=== PATIENT | female | born 1940 | race Caucasian/White ===

== ENCOUNTER 2017-11-23 09:07 | Emergency (ER) | payer MEDICARE, OTHER ==
[2017-11-23 09:13] VITALS: RESP 16
--- NOTE | 2017-11-23 09:38 | ED ---
General Adult HPI - General Chief complaint: Fall Stated complaint: Fell in driveway/facial injury Time Seen by Provider: 11/23/17 09:25 Source: patient, RN notes reviewed Mode of arrival: ambulatory Limitations: no limitations - History of Present Illness Initial comments: Patient 77-year-old female presented to the emergency room today with a chief complaint of a fall occurred approximately one hour ago. She does not that she was in the driveway and tripped over a small lip in the concrete causing her fall for landing on left knee causing mild abrasion. She states also hit her face mostly on the right side. Does admit some abrasions and swelling around the right eye and nose. States she did notice some blood in her mouth but she states this has stopped. She states her knee feels okay. She has noticed some pain to the left pinky finger. Patient states he was no loss of consciousness. She admits to pain locally around the right side of the face but denies any specific headache. Denies any neck, back pain, or other extremity pain. Patient denies any nausea, vomiting, chest pain, abdominal pain, numbness or tingling. - Related Data Home Medications Medication Instructions Recorded Confirmed Aspirin [Adult Low Dose Aspirin EC] 81 mg PO DAILY 12/02/15 11/23/17 Atenolol [Tenormin] 25 mg PO DAILY 12/02/15 11/23/17 Atorvastatin [Lipitor] 40 mg PO HS 12/02/15 11/23/17 Sertraline HCl [Zoloft] 75 mg PO DAILY 12/02/15 11/23/17 Vit A/Vit C/Vit E/Zinc/Copper 1 cap PO BID 12/02/15 11/23/17 [ICAPS SOFTGEL] Calcium Carbonate [Calcium] 600 mg PO DAILY 11/23/17 11/23/17 Ergocalciferol (Vitamin D2) 50,000 unit PO MILLS 11/23/17 11/23/17 [Vitamin D2] Lisinopril [Zestril] 5 mg PO DAILY 11/23/17 11/23/17 Allergies Allergy/AdvReac Type Severity Reaction Status Date / Time No Known Allergies Allergy Verified 11/23/17 10:09 Review of Systems ROS Statement: Those systems with pertinent positive or pertinent negative responses have been documented in the HPI. ROS Other: All systems not noted in ROS Statement are negative. Past Medical History Past Medical History: Coronary Artery Disease (CAD), Hyperlipidemia, Hypertension, Osteoarthritis (OA) Additional Past Medical History / Comment(s): migraines, GOUT, UTI -STATED WAS STARTED FEW DAYS AGO ON ABX. History of Any Multi-Drug Resistant Organisms: None Reported Past Surgical History: Appendectomy, Back Surgery, Bladder Surgery, Cholecystectomy, Coronary Bypass/CABG, Hysterectomy, Orthopedic Surgery, Tonsillectomy Additional Past Surgical History / Comment(s): CABG 2007, rt knee surgery, surgery ingris thumbs, ingris cataracts, 01-06-16 TOTAL RT KNEE REPLACMENT Past Anesthesia/Blood Transfusion Reactions: Family History of Problems w/ Anesthesia, Motion Sickness, Postoperative Nausea & Vomiting (PONV) Additional Past Anesthesia/Blood Transfusion Reaction / Comment(s): HAS INNER DISTURBANCE CAUSES HER DIZZINESS AT TIMES. Past Psychological History: No Psychological Hx Reported Smoking Status: Never smoker Past Alcohol Use History: None Reported Past Drug Use History: None Reported - Past Family History Mother Family Medical History: No Reported History Father History Unknown: Yes General Exam - General Exam Comments Initial Comments: General: The patient is awake and alert, in no distress, and does not appear acutely ill. Eye: Pupils are equal, round and reactive to light, extra-ocular movements are intact. No nystagmus. There is normal conjunctiva bilaterally. No signs of icterus. Ears, nose, mouth and throat: There are moist mucous membranes and no oral lesions. Patient does have some bruising and some swelling above the right eye and over the bridge of the right nose. Tender in these areas. No obvious laceration seen in the mouth. Patient does have dentures in place. No active bleeding. Abrasion to the upper lip, right side. Neck: The neck is supple, there is no tenderness or JVD. No tenderness over cervical spine. Cardiovascular: There is a regular rate and rhythm. No murmur, rub or gallop is appreciated. Respiratory: Lungs are clear to auscultation, respirations are non-labored, breath sounds are equal. No wheezes, stridor, rales, or rhonchi. Musculoskeletal: Patient shows good range of motion of extremities. Does have some tenderness over the proximal phalanx of the fifth digit of the left hand. Mild bruising and swelling locally to the area. Cap refill less than 2 seconds. Sensation intact. Radial pulses plus. Neurological: A&O x 3. CN II-XII intact, There are no obvious motor or sensory deficits. Coordination appears grossly intact. Speech is normal. Skin: Skin is warm and dry and no rashes or lesions are noted. Psychiatric: Cooperative, appropriate mood & affect, normal judgment. Limitations: no limitations Course Vital Signs 11/23/17 09:09 Temperature 98 F Pulse Rate 62 Respiratory 16 Rate Blood Pressure 170/87 O2 Sat by Pulse 98 Oximetry Medical Decision Making - Medical Decision Making Patient reexamined at this time shows no signs of distress. Her CT of the head and neck the patient bones reviewed and does show a non-displaced nasal bone fracture. No other acute abnormalities. X-ray of the left hand is negative for any fractures or dislocation. Results were discussed with the patient. Patient does admit to mild headache had some nausea earlier when she first arrived. She states that has improved. Signs symptoms of concussion discussed in detail. She is advised to limit her physical activity. She is advised follow-up the family doctor over the next 2 days. Advised to return here to the emergency room if any symptoms increase worsen. Patient discharged home where she stays with her will be able to help her. Disposition Clinical Impression: Nasal fracture, Concussion, Fall, Hand contusion, Facial abrasion Disposition: HOME SELF-CARE Condition: Good Instructions: Concussion (ED), Nasal Fracture (ED) Additional Instructions: Please follow-up with your nose and throat over the next 5-7 days after swelling has decreased if there is any obvious misalignment of the nose. Please limit physical activity for concussion-like symptoms until all symptoms have completely resolved and follow-up family doctor the next 2 days. Return here to emergency room if any symptoms increase or worsen appropriate concerns. Is patient prescribed a controlled substance at d/c from ED?: No Referrals: Miguelito Rodriguez MD [Primary Care Provider] - 1-2 days Time of Disposition: 11:04
--- NOTE | 2017-11-23 09:59 | XR ---
EXAMINATION TYPE: XR hand complete LT DATE OF EXAM: 11/23/2017 CLINICAL HISTORY: pain TECHNIQUE: Frontal, lateral and oblique images of the left hand are obtained. COMPARISON: None. FINDINGS: There is no acute fracture/dislocation evident. The joint spaces appear within normal limi ts. The osseous structures are osteopenic. The overlying soft tissue appears unremarkable. IMPRESSION: There is no acute fracture or dislocation. ICD 10 NO FRACTURE, INITIAL EVALUATION
--- NOTE | 2017-11-23 10:02 | CT ---
EXAMINATION TYPE: CT brain berhane camacho DATE OF EXAM: 11/23/2017 COMPARISON: HISTORY: Fall in driveway, multiple facial abrasions CT DLP: 1835.3 (brain, cervical, facial) mGycm Unenhanced CT of the brain was performed. The ventricles, basal cisterns and sulci overlying the cerebral convexities demonstrate enlargement. There is no evidence for intracranial hemorrhage or sulcal effacement. There is decreased attenuatio n about the periventricular white matter and deep white matter of both cerebral hemispheres, compatib le with chronic small vessel ischemia. No mass effects are seen. If symptoms persist consider MRI. Osseous calvarium is intact. IMPRESSION: 1. Age related atrophic and chronic small vessel ischemic change without acute intracranial process seen at this time. CT Cervical Spine: Unenhanced CT of the cervical spine was performed with bone and soft tissue window settings submitted . Coronal and sagittal reconstruction is obtained. There is normal alignment and prevertebral soft tissues. No evidence for acute cervical fracture . Scattered degenerative disc disease and spondylosis. Biapical scarring. IMPRESSION: 1. No evidence for acute fracture or subluxation of the cervical spine.
--- NOTE | 2017-11-23 10:05 | CT ---
EXAMINATION TYPE: CT facial bones wo con DATE OF EXAM: 11/23/2017 COMPARISON: None HISTORY: Fall in driveway, multiple facial abrasions CT DLP: 1835.3 (brain, cervical, facial) mGycm Unenhanced CT of the facial bones was performed in the axial and coronal planes. Bone and soft tissu e window settings are submitted. Paranasal/right periorbital soft tissue edema noted. Nondisplaced nondepressed nasal bone fracture. I do not see evidence for additional displaced facial bone fracture or depressed facial bone fracture. The globes are intact. Paranasal sinuses are well-aerated. IMPRESSION: 1. Nondisplaced nondepressed nasal bone fracture with associated soft tissue swelling.
[2017-11-23 11:21] VITALS: BP 169/84; PULSE 78; TEMP 97.8
== END 2017-11-23 11:20 | disposition home or self-care (01) ==
LOC: EC 09:07
DX: S06.0X0A Concussion without loss of consciousness, initial encounter (principal); S02.2XXA Fracture of nasal bones, initial encounter for closed fracture; S60.052A Contusion of left little finger without damage to nail, initial encounter; S00.11XA Contusion of right eyelid and periocular area, initial encounter; S80.212A Abrasion, left knee, initial encounter; I25.10 Atherosclerotic heart disease of native coronary artery without angina pectoris; E78.5 Hyperlipidemia, unspecified; I10 Essential (primary) hypertension; Z79.82 Long term (current) use of aspirin; Z95.1 Presence of aortocoronary bypass graft; W01.10XA Fall on same level from slipping, tripping and stumbling with subsequent striking against unspecified object, initial encounter; Y92.009 Unspecified place in unspecified non-institutional (private) residence as the place of occurrence of the external cause
CPT/HCPCS: 70450; 70486; 72125; 99284

== ENCOUNTER → 2018-09-11 | Outpatient (CLI) | payer MEDICARE, OTHER ==
--- NOTE | 2018-09-11 14:11 | BD ---
EXAMINATION TYPE: Axial Bone Density DATE OF EXAM: 09/11/2018 COMPARISON: NONE CLINICAL HISTORY: Height: 5 FT 3 IN Weight: 144 FRAX RISK QUESTIONS: History of Fracture in Adulthood: YES Secondary Osteoporosis: 3. Menopause before 45: YES RISK FACTORS HISTORY OF: Surgery to Spine/Hip(right/left)/Wrist (right/left): LUMBAR SURG X 2 When: OVER 30 YEARS AGO Active: YES Postmenopausal woman: TOTAL [facility] AGE 45 Take estrogen and/or progesterone medications: TOOK FOR YEARS NO LONGER TAKES Lost more than 2 inches in height since high school: YES MEDICATIONS: Additional Medications: ATTENOLOL, LISINOPRIL, INCONTINECE MEDS, GENERIC FOR ZOLOFT, Additional History: EXAM MEASUREMENTS: Bone mineral density about the R hip (g/cm2): 0.782 Bone mineral density about the L hip (g/cm2): 0.893 T Score values are as follows: -----R Neck: -1.8 -----L Neck: -1.0 -----R Total: -2.7 -----L Total: -1.5 Bone mineral density has: DECREASED -8.8 % since study of: 2014 Bone mineral density about the L Wrist (g/cm2): 0.435 T Score values are as follows: -----Dist. R+U: -2.8 -----Prox. 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 Osteopenia of the left hip. NOTE: T-SCORE=SD OF THE YOUNG ADULT MEAN.
--- NOTE | 2018-09-12 14:08 | MM ---
Reason for exam: screening (asymptomatic). Last mammogram was performed 3 years and 4 months ago. History: Patient is postmenopausal. Family history of breast cancer in paternal aunt at age 70 and breast cancer in maternal aunt at age 70. Benign stereotactic core biopsy of the right breast, April 20, 2003. Took estrogen for 17 years beginning at age 45. Physical Findings: A clinical breast exam by your physician is recommended on an annual basis and results should be correlated with mammographic findings. MG 3D Screening Mammo W/Cad Bilateral CC and MLO view(s) were taken. XCCL view(s) were taken of the right breast. Prior study comparison: April 29, 2015, bilateral MG 3d screening mammo w/cad. April 21, 2011, bilateral digital screening mammo w/CAD. The breast tissue is heterogeneously dense. This may lower the sensitivity of mammography. Benign appearing bilateral calcifications. Right biopsy marker noted. ASSESSMENT: Benign, BI-RAD 2 RECOMMENDATION: Routine screening mammogram of both breasts in 1 year.
== END | disposition home or self-care (01) ==
LOC: RADMAMWWP 10:17
PROVIDERS: ATTEND Obstetrics & Gynecology
DX: Z12.31 Encounter for screening mammogram for malignant neoplasm of breast (principal); M81.0 Age-related osteoporosis without current pathological fracture; M85.852 Other specified disorders of bone density and structure, left thigh
CPT/HCPCS: 77063; 77067; 77080

== ENCOUNTER 2018-11-16 21:27 | Emergency (ER) | payer MEDICARE, OTHER ==
[2018-11-16] MEDS ORDERED: DIPH,PERTUS(ACELL)TETVAC-LF 0.5 ML VIAL IM ONE (21:53)
--- NOTE | 2018-11-16 22:33 | XR ---
EXAM: XR Left Elbow Complete, 3 or More Views CLINICAL HISTORY: Pain TECHNIQUE: Frontal, lateral and oblique views of the left elbow. COMPARISON: No relevant prior studies available. FINDINGS: Bones/joints: Mild degenerative changes No acute fracture. No dislocation. The lateral is not flexed at 90 Soft tissues: Unremarkable. IMPRESSION: No evidence for fracture or malalignment of the left elbow
--- NOTE | 2018-11-16 22:34 | XR ---
EXAM: XR Left Knee, 3 views CLINICAL HISTORY:: Pain TECHNIQUE: Three views of the left knee. COMPARISON: No relevant prior studies available. FINDINGS: Bones/joints: Unremarkable. No acute fracture. No dislocation. Mild medial joint space compartment narrowing. No evidence for joint effusion Soft tissues: Unremarkable. IMPRESSION: Mild degenerative changes medial joint space compartment. No evidence for fracture or malalignment
[2018-11-16] MEDS ORDERED: LIDOCAINE 1% INJ 10MG/ML (20 ML MDV) SQ ONE (22:58)
--- NOTE | 2018-11-16 23:32 | ED ---
General Adult HPI - General Chief complaint: Fall Stated complaint: Fall Time Seen by Provider: 11/16/18 21:44 Source: patient, RN notes reviewed, old records reviewed Mode of arrival: ambulatory Limitations: no limitations, physical limitation - History of Present Illness Initial comments: 78-year-old female presents status post fall. Patient was moving a dresser with her , the dresser slipped and the patient fell onto her left knee and left elbow. Denies head trauma or loss consciousness. She is on 81 mg aspirin, no other complaints. Chief complaint is left elbow pain. She had minimal bleeding from abrasion and laceration to the left elbow and left knee. - Related Data Home Medications Medication Instructions Recorded Confirmed Aspirin [Adult Low Dose Aspirin EC] 81 mg PO DAILY 12/02/15 11/16/18 Atenolol [Tenormin] 25 mg PO DAILY 12/02/15 11/16/18 Atorvastatin [Lipitor] 40 mg PO HS 12/02/15 11/16/18 Vit A/Vit C/Vit E/Zinc/Copper 2 cap PO DAILY 12/02/15 11/16/18 [ICAPS SOFTGEL] Calcium Carbonate [Calcium] 600 mg PO DAILY 11/23/17 11/16/18 Ergocalciferol (Vitamin D2) 50,000 unit PO MILLS 11/23/17 11/16/18 [Vitamin D2] Lisinopril [Zestril] 5 mg PO DAILY 11/23/17 11/16/18 Meclizine [Antivert] 25 mg PO TID PRN 11/16/18 11/16/18 Oxybutynin Chloride [Oxybutynin 10 mg PO HS 11/16/18 11/16/18 Chloride ER] Sertraline [Zoloft] 100 mg PO AC-BID 11/16/18 11/16/18 Vit A/Vit C/Vit E/Zinc/Copper 1 cap PO HS 11/16/18 11/16/18 [ICAPS SOFTGEL] traZODone HCL [Desyrel] 100 mg PO HS 11/16/18 11/16/18 Previous Rx's Medication Instructions Recorded Cephalexin [Keflex] 500 mg PO Q12HR #10 cap 11/16/18 Ibuprofen [Motrin] 400 mg PO Q6HR PRN #24 tab 11/16/18 Allergies Allergy/AdvReac Type Severity Reaction Status Date / Time No Known Allergies Allergy Verified 11/16/18 22:11 Review of Systems ROS Statement: Those systems with pertinent positive or pertinent negative responses have been documented in the HPI. ROS Other: All systems not noted in ROS Statement are negative. Past Medical History Past Medical History: Coronary Artery Disease (CAD), Hyperlipidemia, Hypertension, Osteoarthritis (OA) Additional Past Medical History / Comment(s): migraines, GOUT, UTI -STATED WAS STARTED FEW DAYS AGO ON ABX. History of Any Multi-Drug Resistant Organisms: None Reported Past Surgical History: Appendectomy, Back Surgery, Bladder Surgery, Cholecystectomy, Coronary Bypass/CABG, Hysterectomy, Orthopedic Surgery, Tonsillectomy Additional Past Surgical History / Comment(s): CABG 2007, rt knee surgery, surgery ingris thumbs, ingris cataracts, 01-06-16 TOTAL RT KNEE REPLACMENT Past Anesthesia/Blood Transfusion Reactions: Family History of Problems w/ Anesthesia, Motion Sickness, Postoperative Nausea & Vomiting (PONV) Additional Past Anesthesia/Blood Transfusion Reaction / Comment(s): HAS INNER DISTURBANCE CAUSES HER DIZZINESS AT TIMES. Past Psychological History: No Psychological Hx Reported Smoking Status: Never smoker Past Alcohol Use History: None Reported Past Drug Use History: None Reported - Past Family History Mother Family Medical History: No Reported History Father History Unknown: Yes General Exam Limitations: no limitations, physical limitation General appearance: alert, in no apparent distress Head exam: Present: atraumatic, normocephalic Eye exam: Present: normal appearance, PERRL ENT exam: Present: normal exam Neck exam: Present: normal inspection. Absent: tenderness, meningismus Respiratory exam: Present: normal lung sounds bilaterally. Absent: respiratory distress, wheezes Cardiovascular Exam: Present: regular rate, normal rhythm GI/Abdominal exam: Present: soft. Absent: distended, tenderness, guarding Extremities exam: Present: other (Superficial abrasion on the anterior surface of the left knee. She has laceration and abrasion over the left elbow. Approximate 3 cm in length.) Neurological exam: Present: alert, oriented X3, CN II-XII intact, normal gait. Absent: motor sensory deficit Psychiatric exam: Present: normal affect, normal mood Course Vital Signs 11/16/18 21:29 Temperature 98.1 F Pulse Rate 54 L Respiratory 17 Rate Blood Pressure 148/69 O2 Sat by Pulse 96 Oximetry Procedures - Laceration Laceration #1 Consent Obtained: verbal consent Indication: laceration Site: upper extremity Size (cm): 3 Description: linear Depth: simple, single layer Anesthetic Used: lidocaine 1% Anesthesia Technique: local infiltration Amount (mls): 3 Pre-repair: wound explored, irrigated extensively, deep structures intact Size of Sutures: 4-0 Number of Sutures: 3 Technique: simple, interrupted Patient Tolerated Procedure: well Medical Decision Making - Medical Decision Making 78-year-old female with fall, left elbow pain, left knee pain. No other injurie s. X-rays obtained of both the left elbow and left knee negative for fracture dislocation. Left knee is cleansed and bandage applied. Left elbow has 3 similar laceration which is repaired in the emergency department after copious irrigation. Patient will return for suture removal in 10-14 days. Disposition Clinical Impression: Fall, Laceration Disposition: HOME SELF-CARE Condition: Good Instructions (If sedation given, give patient instructions): Contusion in Adults (ED), Laceration (ED) Additional Instructions: Please return for suture removal in 10-14 days Prescriptions: Cephalexin [Keflex] 500 mg PO Q12HR #10 cap Ibuprofen [Motrin] 400 mg PO Q6HR PRN #24 tab PRN Reason: Pain Is patient prescribed a controlled substance at d/c from ED?: No Referrals: Miguelito Rodriguez MD [Primary Care Provider] - 1-2 days Time of Disposition: 23:32
[2018-11-16 23:55] VITALS: BP 140/78; PULSE 64; RESP 16; TEMP 97.8
== END 2018-11-16 23:45 | disposition home or self-care (01) ==
LOC: EC 21:27
DX: S51.012A Laceration without foreign body of left elbow, initial encounter (principal); S80.212A Abrasion, left knee, initial encounter; I25.10 Atherosclerotic heart disease of native coronary artery without angina pectoris; E78.5 Hyperlipidemia, unspecified; I10 Essential (primary) hypertension; M19.90 Unspecified osteoarthritis, unspecified site; Z79.82 Long term (current) use of aspirin; Z79.899 Other long term (current) drug therapy; Z96.651 Presence of right artificial knee joint; Z95.1 Presence of aortocoronary bypass graft; Z23 Encounter for immunization; W01.0XXA Fall on same level from slipping, tripping and stumbling without subsequent striking against object, initial encounter; Y92.009 Unspecified place in unspecified non-institutional (private) residence as the place of occurrence of the external cause
CPT/HCPCS: 73080; 73562; 90715; 99284; 12002; 90471; J2001

== ENCOUNTER 2018-11-22 19:38 | Emergency (ER) | payer MEDICARE, OTHER ==
[2018-11-22 20:21] VITALS: BP 136/75; PULSE 57; RESP 16; TEMP 98.7
[2018-11-22] MEDS ORDERED: cefTRIAXone 1,000 MG VIAL (IM USE) IM STA (20:45)
[2018-11-22] MEDS ORDERED: SULFAMETHOX-TMP 800-160MG 1 EACH TAB PO SCH (20:45)
[2018-11-22] MEDS ORDERED: SULFAMETHOX-TMP 800-160MG 1 EACH TAB PO STA (21:15)
[2018-11-22] MEDS ORDERED: SULFAMETH-TMP DS STARTER PACK 2 TAB BTL PO STA (21:15)
[2018-11-22] MEDS ORDERED: CEPHALEXIN 500MG STARTER PACK 4 CAP BTL PO STA (21:16)
[2018-11-22] MEDS ORDERED: CEPHALEXIN 500 MG CAP PO STA (21:16)
--- NOTE | 2018-11-22 21:25 | ED ---
General Adult HPI - General Chief complaint: Skin/Abscess/Foreign Body Stated complaint: Swollen elbow Time Seen by Provider: 11/22/18 20:23 Source: patient, RN notes reviewed, old records reviewed Mode of arrival: ambulatory Limitations: no limitations - History of Present Illness Initial comments: 78-year-old female patient presents to ED with evaluation of left elbow wound. Patient was seen on 11/16 for a laceration. At that time patient reportedly had copious irrigation and primary closure with 3 sutures. Patient complains of 2 days of redness and burning around wound. Patient denies any systemic complaints, denies any fevers, chills, nausea vomiting or diarrhea. Patient is full active range of motion elbow. Denies other complaints. Systemic: Pt denies fatigue, fever/chills, rash. Pt denies weakness, night sweats, weight loss. Neuro: Pt denies headache, visual disturbances, syncope or pre-syncope. HEENT: Pt denies ocular discharge or irritation, otalgia, rhinorrhea, pharyngitis or notable lymphadenopathy. Cardiopulmonary: Pt denies chest pain, SOB, heart palpitations, dyspnea on exertion. Abdominal/GI: Pt denies abdominal pain, n/v/d. : Pt denies dysuria, burning w/ urination, frequency/urgency. Denies new onset urinary or bowel incontinence. MSK: Pt denies myalgia, loss of strength or function in extremities. Neuro: Pt denies new onset weakness, paresthesias. - Related Data Home Medications Medication Instructions Recorded Confirmed Aspirin [Adult Low Dose Aspirin EC] 81 mg PO DAILY 12/02/15 11/16/18 Atenolol [Tenormin] 25 mg PO DAILY 12/02/15 11/16/18 Atorvastatin [Lipitor] 40 mg PO HS 12/02/15 11/16/18 Vit A/Vit C/Vit E/Zinc/Copper 2 cap PO DAILY 12/02/15 11/16/18 [ICAPS SOFTGEL] Calcium Carbonate [Calcium] 600 mg PO DAILY 11/23/17 11/16/18 Ergocalciferol (Vitamin D2) 50,000 unit PO MILLS 11/23/17 11/16/18 [Vitamin D2] Lisinopril [Zestril] 5 mg PO DAILY 11/23/17 11/16/18 Meclizine [Antivert] 25 mg PO TID PRN 11/16/18 11/16/18 Oxybutynin Chloride [Oxybutynin 10 mg PO HS 11/16/18 11/16/18 Chloride ER] Sertraline [Zoloft] 100 mg PO AC-BID 11/16/18 11/16/18 Vit A/Vit C/Vit E/Zinc/Copper 1 cap PO HS 11/16/18 11/16/18 [ICAPS SOFTGEL] traZODone HCL [Desyrel] 100 mg PO HS 11/16/18 11/16/18 Previous Rx's Medication Instructions Recorded Cephalexin [Keflex] 500 mg PO Q12HR #10 cap 11/16/18 Ibuprofen [Motrin] 400 mg PO Q6HR PRN #24 tab 11/16/18 Cephalexin [Keflex] 500 mg PO Q6HR 10 Days #40 cap 11/22/18 Sulfamethox-Tmp 800-160Mg [Bactrim 2 tab PO Q12HR 10 Days #40 tab 11/22/18 DS 800-160 mg] Allergies Allergy/AdvReac Type Severity Reaction Status Date / Time No Known Allergies Allergy Verified 11/22/18 20:19 Review of Systems ROS Statement: Those systems with pertinent positive or pertinent negative responses have been documented in the HPI. ROS Other: All systems not noted in ROS Statement are negative. Past Medical History Past Medical History: Coronary Artery Disease (CAD), Hyperlipidemia, Hypertension, Osteoarthritis (OA) Additional Past Medical History / Comment(s): migraines, GOUT, UTI -STATED WAS STARTED FEW DAYS AGO ON ABX. History of Any Multi-Drug Resistant Organisms: None Reported Past Surgical History: Appendectomy, Back Surgery, Bladder Surgery, Cholecystectomy, Coronary Bypass/CABG, Hysterectomy, Orthopedic Surgery, Tonsillectomy Additional Past Surgical History / Comment(s): CABG 2007, rt knee surgery, surgery ingris thumbs, ingris cataracts, 01-06-16 TOTAL RT KNEE REPLACMENT Past Anesthesia/Blood Transfusion Reactions: Family History of Problems w/ Anesthesia, Motion Sickness, Postoperative Nausea & Vomiting (PONV) Additional Past Anesthesia/Blood Transfusion Reaction / Comment(s): HAS INNER DISTURBANCE CAUSES HER DIZZINESS AT TIMES. Past Psychological History: No Psychological Hx Reported Smoking Status: Never smoker Past Alcohol Use History: None Reported Past Drug Use History: None Reported - Past Family History Mother Family Medical History: No Reported History Father History Unknown: Yes General Exam - General Exam Comments Initial Comments: Constitutional: NAD, AOX3, Pt has pleasant affect. HEENT: NC/AT, trachea midline, neck supple, no lymphadenopathy. Posterior pharynx non erythematous, without exudates. External ears appear normal, without discharge. Mucous membranes moist. Eyes PERRLA, EOM intact. There is no scleral icterus. No pallor noted. Cardiopulmonary: RRR, no murmurs, rubs or gallops, no JVD noted. Lungs CTAB in anterior and posterior rain. No peripheral edema. Abdominal exam: Abdomen soft and non-distended. Abdomen non-tender to palpation in all 4 quadrants. Bowel sounds active in LLQ. No hepatosplenomegaly. No ecchymosis Neuro: CN II-XII grossly intact. No nuchal rigidity. No raccon eyes, no albright sign, no hemotympanum. No cervical spinal tenderness. MSK: Healing laceration on left elbow mildly edematous and erythematous around closure site. No purulent drainage noted. No fluctuance. No streaking noted. No posterior calf tenderness bilaterally, homans sign negative bilaterally. Posterior tibialis and radial pulse +2 bilaterally. Sensation intact in upper and lower extremities. Full active ROM in upper and lower extremities, 5/5 stregnth. Limitations: no limitations Course Vital Signs 11/22/18 20:17 Temperature 98.7 F Pulse Rate 57 L Respiratory 16 Rate Blood Pressure 136/75 O2 Sat by Pulse 98 Oximetry Medical Decision Making - Medical Decision Making 78-year-old female patient presents to ED with evaluation of left elbow wound. Patient was seen on 11/16 for a laceration. At that time patient reportedly had copious irrigation and primary closure with 3 sutures. Patient complains of 2 days of redness and burning around wound. Patient denies any systemic complaints, denies any fevers, chills, nausea vomiting or diarrhea. Patient is full active range of motion elbow. Denies other complaints. Patient will signs stable, afebrile. Physical exam displayed: Healing laceration on left elbow mildly edematous and erythematous around closure site. No purulent drainage noted. No fluctuance. No streaking noted. Patient administered 1 g Rocephin ED. Patient also administered one dose of Ultram and Keflex. Patient will discharge on Bactrim and Keflex for 10 days. Patient will have a strict return precautions, return here immediately if condition worsens in any way. Otherwise patient will return to ED in 4 days for suture removal. Patient will also follow up with primary care provider. Case discussed with Dr. Willard. Disposition Clinical Impression: Superficial skin infection Disposition: HOME SELF-CARE Condition: Stable Instructions (If sedation given, give patient instructions): Cellulitis (ED), Acute Wounds (ED) Additional Instructions: Patient to adhere to previously discussed treatment plan and will take medication(s) as directed. Patient to follow up with PCP in 1-2 days. Patient to return to ED if symptoms do not improve. Take medication as directed. Return immediately to ER if condition worsens in any way. Prescriptions: Sulfamethox-Tmp 800-160Mg [Bactrim DS 800-160 mg] 2 tab PO Q12HR 10 Days #40 tab Cephalexin [Keflex] 500 mg PO Q6HR 10 Days #40 cap Is patient prescribed a controlled substance at d/c from ED?: No Referrals: Miguelito Rodriguez MD [Primary Care Provider] - 1-2 days
== END 2018-11-22 21:30 | disposition home or self-care (01) ==
LOC: EC 19:38
DX: L08.9 Local infection of the skin and subcutaneous tissue, unspecified (principal); S51.012D Laceration without foreign body of left elbow, subsequent encounter; I25.10 Atherosclerotic heart disease of native coronary artery without angina pectoris; E78.5 Hyperlipidemia, unspecified; I10 Essential (primary) hypertension; M19.90 Unspecified osteoarthritis, unspecified site; M10.9 Gout, unspecified; Z79.82 Long term (current) use of aspirin; Z79.899 Other long term (current) drug therapy; Z87.440 Personal history of urinary (tract) infections; Z95.1 Presence of aortocoronary bypass graft; Z96.651 Presence of right artificial knee joint; X58.XXXD Exposure to other specified factors, subsequent encounter
CPT/HCPCS: 99283; 96372; J0696

== ENCOUNTER 2018-12-04 09:53 | Emergency (ER) | payer MEDICARE, OTHER ==
[2018-12-04 10:07] VITALS: RESP 18; TEMP 98.7
--- NOTE | 2018-12-04 12:16 | XR ---
EXAMINATION TYPE: XR thoracic spine 2V DATE OF EXAM: 12/04/2018 CLINICAL HISTORY: pain TECHNIQUE: Frontal, lateral, and swimmer's view of thoracic spine are obtained. COMPARISON: None. FINDINGS: Thoracic spine show satisfactory alignment without evidence of acute fracture or dislocatio n. Vertebral body heights are preserved. Mild scattered degenerative changes noted. Visualized rib s are unremarkable. IMPRESSION: No acute fracture or dislocation is seen in the thoracic spine. ICD 10 NO FRACTURE, INIT IAL EVALUATION
--- NOTE | 2018-12-04 12:33 | ED ---
Back Pain HPI - General Chief Complaint: Back Pain/Injury Stated Complaint: back pain-revisit Time Seen by Provider: 12/04/18 11:08 Source: patient Limitations: no limitations - History of Present Illness Initial Comments: Patient is a 78-year-old female presenting to the emergency Department with complaints of pain in her thoracic area 2 days. Patient states she was in the ER approximately 2 weeks ago after she fell onto her left side sustaining a lack to her left elbow. Patient states she has been healing well from that fall. Patient states yesterday and today she has had an increase in the thoracic pain as well with movement of either upper extremity. Patient states she has a hard time getting comfortable. Patient denies any fever, chills, chest pain, shortness of breath, additional falls. Patient has not tried anything for her pain yet. No other complaints at this time. - Related Data Home Medications Medication Instructions Recorded Confirmed Aspirin [Adult Low Dose Aspirin EC] 81 mg PO DAILY 12/02/15 12/04/18 Atenolol [Tenormin] 25 mg PO DAILY 12/02/15 12/04/18 Atorvastatin [Lipitor] 40 mg PO HS 12/02/15 12/04/18 Vit A/Vit C/Vit E/Zinc/Copper 2 cap PO DAILY 12/02/15 12/04/18 [ICAPS SOFTGEL] Calcium Carbonate [Calcium] 600 mg PO DAILY 11/23/17 12/04/18 Ergocalciferol (Vitamin D2) 50,000 unit PO MILLS 11/23/17 12/04/18 [Vitamin D2] Lisinopril [Zestril] 5 mg PO DAILY 11/23/17 12/04/18 Meclizine [Antivert] 25 mg PO TID PRN 11/16/18 12/04/18 Oxybutynin Chloride [Oxybutynin 10 mg PO HS 11/16/18 12/04/18 Chloride ER] Sertraline [Zoloft] 100 mg PO AC-BID 11/16/18 12/04/18 Vit A/Vit C/Vit E/Zinc/Copper 1 cap PO HS 11/16/18 12/04/18 [ICAPS SOFTGEL] traZODone HCL [Desyrel] 100 mg PO HS 11/16/18 12/04/18 Previous Rx's Medication Instructions Recorded Ibuprofen [Motrin] 400 mg PO Q6HR PRN #24 tab 11/16/18 Methocarbamol [Robaxin] 500 mg PO TID PRN #15 tab 12/04/18 Allergies Allergy/AdvReac Type Severity Reaction Status Date / Time No Known Allergies Allergy Verified 11/22/18 20:19 Review of Systems ROS Statement: Those systems with pertinent positive or pertinent negative responses have been documented in the HPI. ROS Other: All systems not noted in ROS Statement are negative. Past Medical History Past Medical History: Coronary Artery Disease (CAD), Hyperlipidemia, Hypertension, Osteoarthritis (OA) Additional Past Medical History / Comment(s): migraines, GOUT, UTI -STATED WAS STARTED FEW DAYS AGO ON ABX. History of Any Multi-Drug Resistant Organisms: None Reported Past Surgical History: Appendectomy, Back Surgery, Bladder Surgery, Cholecystectomy, Coronary Bypass/CABG, Hysterectomy, Joint Replacement, O rthopedic Surgery, Tonsillectomy Additional Past Surgical History / Comment(s): CABG 2007, rt knee surgery, surgery ingris thumbs, ingris cataracts, 01-06-16 TOTAL RT KNEE REPLACMENT Past Anesthesia/Blood Transfusion Reactions: Family History of Problems w/ Anesthesia, Motion Sickness, Postoperative Nausea & Vomiting (PONV) Additional Past Anesthesia/Blood Transfusion Reaction / Comment(s): HAS INNER DISTURBANCE CAUSES HER DIZZINESS AT TIMES. Past Psychological History: No Psychological Hx Reported Smoking Status: Never smoker Past Alcohol Use History: None Reported Past Drug Use History: None Reported - Past Family History Mother Family Medical History: No Reported History Father History Unknown: Yes General Exam - General Exam Comments Initial Comments: GENERAL: Well-appearing, well-nourished and in no acute distress, but appears in pain. HEAD: Atraumatic, normocephalic. EYES: Pupils equal round and reactive to light, extraocular movements intact, sclera anicteric, conjunctiva are normal. ENT: TMs normal, nares patent, oropharynx clear without exudates. Moist mucous membranes. NECK: Normal range of motion, supple without lymphadenopathy or JVD. LUNGS: Breath sounds clear to auscultation bilaterally and equal. No wheezes rales or rhonchi. HEART: Regular rate and rhythm without murmurs, rubs or gallops. ABDOMEN: Soft, nontender, normoactive bowel sounds. No guarding, no rebound. No masses appreciated. : Deferred EXTREMITIES: Normal range of motion, no pitting or edema. No clubbing or cyanosis. Patient has pain to palpation of thoracic paraspinals. Patient also has increase pain with active range of motion of both shoulders. Pain with shoulder blade retraction. NEUROLOGICAL: Cranial nerves II through XII grossly intact. Normal speech, normal gait. PSYCH: Normal mood, normal affect. SKIN: Warm, Dry, normal turgor, no rashes or lesions noted. Limitations: no limitations Course Vital Signs 12/04/18 12/04/18 10:04 12:53 Temperature 98.7 F Pulse Rate 93 91 Respiratory 18 18 Rate Blood Pressure 110/77 116/77 O2 Sat by Pulse 96 95 Oximetry Medical Decision Making - Medical Decision Making Patient is a 78-year-old female with complaints of thoracic pain since yesterday. Patient did sustain a fall approximately 2 weeks ago and was treated here for a lack on her elbow. Patient states she recovered well from that fall and has not had any additional falls. Patient states yesterday she developed thoracic pain and the pain increases with shoulder range of motion. On exam patient had tenderness to thoracic paraspinals as well as increased pain with bilateral shoulder range of motion. X-rays reveal no acute fractures or dislocations of thoracic spine. Those discussed with patient and family of this is most likely muscle spasms. Patient will be given a short course of a muscle relaxer and will do heat to the area. Patient is in agreement with this plan. It was discussed that she needs to rest as well. Return parameters were discussed with the patient and her family and they all verbalized understanding. Patient will be discharged home. Case discussed with Dr. Mcallister. Disposition Clinical Impression: Thoracic back pain Disposition: HOME SELF-CARE Condition: Stable Instructions (If sedation given, give patient instructions): Acute Low Back Pain (ED) Additional Instructions: Please return to the Emergency Department if symptoms worsen or any other concerns. Follow-up with PCP as symptoms continue times one week. Prescriptions: Methocarbamol [Robaxin] 500 mg PO TID PRN #15 tab PRN Reason: muscle spasms Is patient prescribed a controlled substance at d/c from ED?: No Referrals: Miguelito Rodriguez MD [Primary Care Provider] - 1-2 days
[2018-12-04 12:54] VITALS: BP 116/77; PULSE 91
== END 2018-12-04 12:57 | disposition home or self-care (01) ==
LOC: EC 09:53
DX: M54.6 Pain in thoracic spine (principal); I25.10 Atherosclerotic heart disease of native coronary artery without angina pectoris; E78.5 Hyperlipidemia, unspecified; I10 Essential (primary) hypertension; M19.90 Unspecified osteoarthritis, unspecified site; M10.9 Gout, unspecified; Z79.82 Long term (current) use of aspirin; Z79.899 Other long term (current) drug therapy; Z95.1 Presence of aortocoronary bypass graft; Z96.651 Presence of right artificial knee joint; Z98.890 Other specified postprocedural states
CPT/HCPCS: 72070; 99283

== ENCOUNTER 2018-12-06 08:27 | Emergency (ER) | payer MEDICARE, OTHER ==
[2018-12-06 08:41] VITALS: TEMP 99.3
[2018-12-06] MEDS ORDERED: SODIUM CHLORIDE 0.9% 1,000 ML IV STA ×2 (09:00)
[2018-12-06] MEDS ORDERED: KETOROLAC 30 MG/ML 1 ML VIAL IVP STA (09:00)
--- NOTE | 2018-12-06 09:06 | ED ---
Lower Extremity Injury HPI - General Chief Complaint: Extremity Injury, Lower Stated Complaint: Foot and shoulder pain Time Seen by Provider: 12/06/18 08:37 Source: patient, EMS, RN notes reviewed, old records reviewed Mode of arrival: EMS Limitations: no limitations - History of Present Illness Initial Comments: Patient is a 78-year-old female who presents emergency Department today with complaints of bilateral foot pain, left worse than right. She reports that her left foot swollen and red. She also complains of between the shoulder blades pain, worse with movement. Patient reports that she was seen in the emergency department multiple times throughout the past few weeks for joint pains and aches. Patient has been discharged recently with Yazmin. She's been taking his medications as prescribed. Patient's daughter is here and states that she has not been eating or drinking well. She denies any significant fevers. Patient reports that she just doesn't feel like eating. She denies any abdominal pain. Patient states that she is scheduled to have an outpatient CT completed today for chronic rib pain intercostal pain this was read by Dr. Liriano. Patient states that she's had history of gouty arthritis. - Related Data Home Medications Medication Instructions Recorded Confirmed Aspirin [Adult Low Dose Aspirin EC] 81 mg PO DAILY 12/02/15 12/06/18 Atenolol [Tenormin] 25 mg PO DAILY 12/02/15 12/06/18 Atorvastatin [Lipitor] 40 mg PO HS 12/02/15 12/06/18 Vit A/Vit C/Vit E/Zinc/Copper 2 cap PO DAILY 12/02/15 12/06/18 [ICAPS SOFTGEL] Calcium Carbonate [Calcium] 600 mg PO DAILY 11/23/17 12/06/18 Ergocalciferol (Vitamin D2) 50,000 unit PO MILLS 11/23/17 12/06/18 [Vitamin D2] Lisinopril [Zestril] 5 mg PO DAILY 11/23/17 12/06/18 Meclizine [Antivert] 25 mg PO TID PRN 11/16/18 12/06/18 Oxybutynin Chloride [Oxybutynin 10 mg PO HS 11/16/18 12/06/18 Chloride ER] Sertraline [Zoloft] 100 mg PO AC-BID 11/16/18 12/06/18 Vit A/Vit C/Vit E/Zinc/Copper 1 cap PO HS 11/16/18 12/06/18 [ICAPS SOFTGEL] traZODone HCL [Desyrel] 100 mg PO HS 11/16/18 12/06/18 Previous Rx's Medication Instructions Recorded Ibuprofen [Motrin] 400 mg PO Q6HR PRN #24 tab 11/16/18 Methocarbamol [Robaxin] 500 mg PO TID PRN #15 tab 12/04/18 Cephalexin [Keflex] 500 mg PO Q8HR #21 cap 12/06/18 Ibuprofen [Motrin] 600 mg PO Q8HR PRN #20 tab 12/06/18 methylPREDNISolone Dose Pack 4 mg PO DIRECTED #21 package 12/06/18 [Medrol Dose Pack] Allergies Allergy/AdvReac Type Severity Reaction Status Date / Time No Known Allergies Allergy Verified 12/06/18 08:41 Review of Systems ROS Statement: Those systems with pertinent positive or pertinent negative responses have been documented in the HPI. ROS Other: All systems not noted in ROS Statement are negative. Past Medical History Past Medical History: Coronary Artery Disease (CAD), Hyperlipidemia, Hypertension, Osteoarthritis (OA) Additional Past Medical History / Comment(s): migraines, GOUT, UTI -STATED WAS STARTED FEW DAYS AGO ON ABX. History of Any Multi-Drug Resistant Organisms: None Reported Past Surgical History: Appendectomy, Back Surgery, Bladder Surgery, Cholecys tectomy, Coronary Bypass/CABG, Hysterectomy, Joint Replacement, Orthopedic Surgery, Tonsillectomy Additional Past Surgical History / Comment(s): CABG 2007, rt knee surgery, mills rgery ingris thumbs, ingris cataracts, 01-06-16 TOTAL RT KNEE REPLACMENT Past Anesthesia/Blood Transfusion Reactions: Family History of Problems w/ Anesthesia, Motion Sickness, Postoperative Nausea & Vomiting (PONV) Additional Past Anesthesia/Blood Transfusion Reaction / Comment(s): HAS INNER DISTURBANCE CAUSES HER DIZZINESS AT TIMES. Past Psychological History: No Psychological Hx Reported Smoking Status: Never smoker Past Alcohol Use History: None Reported Past Drug Use History: None Reported - Past Family History Mother Family Medical History: No Reported History Father History Unknown: Yes General Exam - General Exam Comments Initial Comments: This is a 78 rolled female. Alert and oriented 3. Patient appears in no significant distress. Limitations: no limitations General appearance: alert, in no apparent distress Head exam: Present: atraumatic, normocephalic, normal inspection Eye exam: Present: normal appearance, PERRL, EOMI. Absent: scleral icterus, conjunctival injection, periorbital swelling ENT exam: Present: normal exam, mucous membranes moist Neck exam: Present: normal inspection. Absent: tenderness, meningismus, lymph adenopathy Respiratory exam: Present: normal lung sounds bilaterally. Absent: respiratory distress, wheezes, rales, rhonchi, stridor Cardiovascular Exam: Present: regular rate, normal rhythm, normal heart sounds. Absent: systolic murmur, diastolic murmur, rubs, gallop, clicks GI/Abdominal exam: Present: soft, normal bowel sounds. Absent: distended, tenderness, guarding, rebound, rigid Extremities exam: Present: normal inspection, full ROM, normal capillary refill, other (Patient has erythema over the dorsum of her left foot.). Absent: tenderness, pedal edema, joint swelling, calf tenderness Back exam: Present: normal inspection Neurological exam: Present: alert, oriented X3, CN II-XII intact Psychiatric exam: Present: normal affect, normal mood Skin exam: Present: warm, dry, intact, normal color. Absent: rash Course Vital Signs 12/06/18 12/06/18 08:39 13:53 Temperature 99.3 F Pulse Rate 92 98 Respiratory 18 17 Rate Blood Pressure 139/74 124/79 O2 Sat by Pulse 96 93 L Oximetry Medical Decision Making - Medical Decision Making Patient is 78-year-old female with multiple complaints including shoulder pains, and pain over bilateral feet. She does have a history of gout. She does have some swelling and erythema over the dorsum of bilateral feet. Patient has no breaks in the skin, she denies any fever. No standing history of cellulitis or resistant skin infection. At this time patient's labwork was obtained and patient's family states she hasn't been eating or drinking much. Laboratory was reviewed relatively unremarkable. Mild leukocytosis noted. Patient tender over the shoulder blades. Chest x-ray was negative for any acute process. Patient's case discussed with Dr. Najera. It is likely the Patient is suffering from gout exacerbation but due to concern for leukocytosis he stated he wanted me to start the Patient on Keflex for to cover for cellulitis. I advised family to have follow-up with her primary care doctor. All questions were answered return parameters were discussed. Patient does have Ultram at home for pain. - Lab Data Result diagrams: 12/06/18 09:13 12/06/18 09:13 Lab Results 12/06/18 12/06/18 12/06/18 Range/Units 09:13 09:13 09:13 WBC 13.8 H (3.8-10.6) k/uL RBC 3.99 (3.80-5.40) m/uL Hgb 11.3 L (11.4-16.0) gm/dL Hct 34.4 (34.0-46.0) % MCV 86.2 (80.0-100.0) fL MCH 28.4 (25.0-35.0) pg MCHC 32.9 (31.0-37.0) g/dL RDW 13.5 (11.5-15.5) % Plt Count 241 (150-450) k/uL Neutrophils % 79 % Lymphocytes % 9 % Monocytes % 10 % Eosinophils % 0 % Basophils % 0 % Neutrophils # 10.9 H (1.3-7.7) k/uL Lymphocytes # 1.2 (1.0-4.8) k/uL Monocytes # 1.4 H (0-1.0) k/uL Eosinophils # 0.1 (0-0.7) k/uL Basophils # 0.0 (0-0.2) k/uL PT 12.2 H (9.0-12.0) sec INR 1.2 H (<1.2) APTT 28.8 (22.0-30.0) sec Sodium 136 L (137-145) mmol/L Potassium 4.1 (3.5-5.1) mmol/L Chloride 103 (98-107) mmol/L Carbon Dioxide 21 L (22-30) mmol/L Anion Gap 12 mmol/L BUN 12 (7-17) mg/dL Creatinine 0.59 (0.52-1.04) mg/dL Est GFR (CKD-EPI)AfAm >90 (>60 ml/min/1.73 sqM) Est GFR (CKD-EPI)NonAf 89 (>60 ml/min/1.73 sqM) Glucose 110 H (74-99) mg/dL Uric Acid 1.4 L (3.7-7.4) mg/dL Calcium 8.7 (8.4-10.2) mg/dL Total Bilirubin 1.3 (0.2-1.3) mg/dL AST 27 (14-36) U/L ALT 14 (9-52) U/L Alkaline Phosphatase 77 (38-126) U/L Troponin I (0.000-0.034) ng/mL Total Protein 6.1 L (6.3-8.2) g/dL Albumin 3.1 L (3.5-5.0) g/dL Urine Color Urine Appearance (Clear) Urine pH (5.0-8.0) Ur Specific [place] (1.001-1.035) Urine Protein (Negative) Urine Glucose (UA) (Negative) Urine Ketones (Negative) Urine Blood (Negative) Urine Nitrite (Negative) Urine Bilirubin (Negative) Urine Urobilinogen (<2.0) mg/dL Ur Leukocyte Esterase (Negative) Urine RBC (0-5) /hpf Urine WBC (0-5) /hpf Ur Squamous Epith Cells (0-4) /hpf Amorphous Sediment (None) /hpf Urine Bacteria (None) /hpf Hyaline Casts (0-2) /lpf Urine Mucus (None) /hpf 12/06/18 12/06/18 Range/Units 09:13 12:07 WBC (3.8-10.6) k/uL RBC (3.80-5.40) m/uL Hgb (11.4-16.0) gm/dL Hct (34.0-46.0) % MCV (80.0-100.0) fL MCH (25.0-35.0) pg MCHC (31.0-37.0) g/dL RDW (11.5-15.5) % Plt Count (150-450) k/uL Neutrophils % % Lymphocytes % % Monocytes % % Eosinophils % % Basophils % % Neutrophils # (1.3-7.7) k/uL Lymphocytes # (1.0-4.8) k/uL Monocytes # (0-1.0) k/uL Eosinophils # (0-0.7) k/uL Basophils # (0-0.2) k/uL PT (9.0-12.0) sec INR (<1.2) APTT (22.0-30.0) sec Sodium (137-145) mmol/L Potassium (3.5-5.1) mmol/L Chloride (98-107) mmol/L Carbon Dioxide (22-30) mmol/L Anion Gap mmol/L BUN (7-17) mg/dL Creatinine (0.52-1.04) mg/dL Est GFR (CKD-EPI)AfAm (>60 ml/min/1.73 sqM) Est GFR (CKD-EPI)NonAf (>60 ml/min/1.73 sqM) Glucose (74-99) mg/dL Uric Acid (3.7-7.4) mg/dL Calcium (8.4-10.2) mg/dL Total Bilirubin (0.2-1.3) mg/dL AST (14-36) U/L ALT (9-52) U/L Alkaline Phosphatase (38-126) U/L Troponin I <0.012 (0.000-0.034) ng/mL Total Protein (6.3-8.2) g/dL Albumin (3.5-5.0) g/dL Urine Color Yellow Urine Appearance Cloudy H (Clear) Urine pH 5.5 (5.0-8.0) Ur Specific [place] 1.025 (1.001-1.035) Urine Protein 1+ H (Negative) Urine Glucose (UA) Negative (Negative) Urine Ketones 1+ H (Negative) Urine Blood Negative (Negative) Urine Nitrite Negative (Negative) Urine Bilirubin 1+ H (Negative) Urine Urobilinogen 2.0 (<2.0) mg/dL Ur Leukocyte Esterase Trace H (Negative) Urine RBC 2 (0-5) /hpf Urine WBC 4 (0-5) /hpf Ur Squamous Epith Cells 1 (0-4) /hpf Amorphous Sediment Occasional H (None) /hpf Urine Bacteria Rare H (None) /hpf Hyaline Casts 6 H (0-2) /lpf Urine Mucus Many H (None) /hpf 12/06/18 09:35 EKG performed at 929 shows normal sinus rhythm nonspecific T-wave abnormality. Ventricular rate of 91 bpm period. Intervals 162 ms. QRS duration is 80 ms. QT QTc is 382/469 ms. - Radiology Data Radiology results: report reviewed Foot x-rays negative for any acute fracture dislocation. Chest x-ray is negative for any acute cardiopulmonary process. Disposition Clinical Impression: Foot swelling, Foot erythema, Shoulder strain Disposition: HOME SELF-CARE Condition: Good Instructions (If sedation given, give patient instructions): Gout (ED) Additional Instructions: Follow-up with your primary care physician. Take the medications as prescribed and take Ultram for pain as prescribed. Patient to take the steroids and complete Her course of antibiotics.. Return to the emergency department if any alarming signs or symptoms occur. Patient should drink plenty of fluids and ensure good dietary habits. Prescriptions: Cephalexin [Keflex] 500 mg PO Q8HR #21 cap methylPREDNISolone Dose Pack [Medrol Dose Pack] 4 mg PO DIRECTED #21 package Ibuprofen [Motrin] 600 mg PO Q8HR PRN #20 tab PRN Reason: Pain Is patient prescribed a controlled substance at d/c from ED?: No Referrals: Miguelito Rodriguez MD [Primary Care Provider] - 1-2 days Time of Disposition: 13:23
[2018-12-06 09:37] LABS: ALT 14 U/L (9-52); AST 27 U/L (14-36); African American GFR (CKD) >90 (>60 ml/min/1.73 sqM); Albumin 3.1 g/dL (3.5-5.0); Alkaline Phosphatase 77 U/L (38-126); Anion Gap 12 mmol/L; Blood Urea Nitrogen 12 mg/dL (7-17); Calcium 8.7 mg/dL (8.4-10.2); Carbon Dioxide 21 mmol/L (22-30); Chloride 103 mmol/L (98-107); Glucose 110 mg/dL (74-99); Potassium 4.1 mmol/L (3.5-5.1); Sodium 136 mmol/L (137-145); Total Bilirubin 1.3 mg/dL (0.2-1.3); Total Protein 6.1 g/dL (6.3-8.2); Uric Acid 1.4 mg/dL (3.7-7.4)
--- NOTE | 2018-12-06 09:57 | XR ---
EXAMINATION TYPE: XR chest 2V DATE OF EXAM: 12/06/2018 COMPARISON: NONE HISTORY: Shortness of breath TECHNIQUE: Frontal and lateral views of the chest are obtained. FINDINGS: Scattered senescent parenchymal changes noted. Hyperinflation compatible with COPD. No evidence for infiltrate. No evidence for atelectasis. Heart size is stable. Mediastinal structures are stable and grossly unremarkable. No evidence for hilar prominence. Degenerative changes dorsal spine. IMPRESSION: 1. No evidence for acute pulmonary disease.
--- NOTE | 2018-12-06 09:58 | XR ---
EXAMINATION TYPE: XR foot complete RT DATE OF EXAM: 12/06/2018 CLINICAL HISTORY: pain TECHNIQUE: Frontal, lateral and oblique images of the right foot are obtained. COMPARISON: None. FINDINGS: There is no acute fracture/dislocation evident. Mild hallux valgus deformity first metatar sophalangeal joint. Chronic deformity of the third metatarsal head. The overlying soft tissue appears unremarkable. IMPRESSION: There is no acute fracture or dislocation. ICD 10 NO FRACTURE, INITIAL EVALUATION
[2018-12-06 10:04] LABS: Basophils % (A) 0 %; Eosinophils # (A) 0.1 k/uL (0-0.7); Eosinophils % (A) 0 %; HCT 34.4 % (34.0-46.0); HGB 11.3 gm/dL (11.4-16.0); Lymphocytes # (A) 1.2 k/uL (1.0-4.8); Lymphocytes % (A) 9 %; MCH 28.4 pg (25.0-35.0); MCHC 32.9 g/dL (31.0-37.0); MCV 86.2 fL (80.0-100.0); Mean Platelet Volume 8.2; Monocytes # (A) 1.4 k/uL (0-1.0); Monocytes % (A) 10 %; Neutrophils # (A) 10.9 k/uL (1.3-7.7); Neutrophils % (A) 79 %; Platelet Count 241 k/uL (150-450); RBC 3.99 m/uL (3.80-5.40); RDW 13.5 % (11.5-15.5); WBC 13.8 k/uL (3.8-10.6)
[2018-12-06 10:25] LABS: INR 1.2 (<1.2); Partial Thromboplastin Time 28.8 sec (22.0-30.0); Prothrombin Time 12.2 sec (9.0-12.0)
[2018-12-06 12:21] LABS: Amorphous Sediment,Urine Occasional /hpf; Appearance,Urine Cloudy (Clear); Bacteria,Urine Rare /hpf; Bilirubin,Urine 1+ (Negative); Blood,Urine Negative (Negative); Color,Urine Yellow; Glucose,Urine (UA) Negative (Negative); Hyaline Casts,Urine 6 /lpf (0-2); Ketones,Urine 1+ (Negative); Leukocyte Esterase,Urine Trace (Negative); Mucus,Urine Many /hpf; Nitrite,Urine Negative (Negative); PH, Urine 5.5 (5.0-8.0); Protein,Urine 1+ (Negative); RBC,Urine 2 /hpf (0-5); Specific Gravity,Urine 1.025 (1.001-1.035); Squamous Epithelial Cell,Urine 1 /hpf (0-4); WBC,Urine 4 /hpf (0-5)
[2018-12-06 13:55] VITALS: BP 124/79; PULSE 98; RESP 17
== END 2018-12-06 13:53 | disposition home or self-care (01) ==
LOC: EC 08:27
DX: M79.89 Other specified soft tissue disorders (principal); S46.919A Strain of unspecified muscle, fascia and tendon at shoulder and upper arm level, unspecified arm, initial encounter; L53.9 Erythematous condition, unspecified; I25.10 Atherosclerotic heart disease of native coronary artery without angina pectoris; I10 Essential (primary) hypertension; E78.5 Hyperlipidemia, unspecified; Z79.82 Long term (current) use of aspirin; Z79.899 Other long term (current) drug therapy; Z95.1 Presence of aortocoronary bypass graft; Z96.651 Presence of right artificial knee joint; X58.XXXA Exposure to other specified factors, initial encounter
CPT/HCPCS: 36415; 93005; 80053; 84550; 84484; 85025; 85610; 85730; 81001; 73630; 71046; 99284; 96374; 96361 ×4; J1885

== ENCOUNTER → 2018-12-12 | Outpatient (CLI) | payer MEDICARE, OTHER ==
--- NOTE | 2018-12-13 09:24 | CT ---
EXAMINATION TYPE: CT chest wo con DATE OF EXAM: 12/12/2018 COMPARISON: Chest x-ray 12/06/2018 HISTORY: Intercostal pain CT DLP: 417 mGycm. Automated Exposure Control for Dose Reduction was Utilized. TECHNIQUE: CT scan of the thorax is performed without IV contrast. FINDINGS: Patient is post median sternotomy. Lack of intravenous contrast could compromise sensitivit y of the exam. LUNGS: The lungs are grossly clear, there is no concerning parenchymal mass or nodule identified. T here is no pleural effusion or pneumothorax seen. The tracheobronchial tree is patent. Minimal poste rior pleural thickening on the right is noted. MEDIASTINUM: Lack of IV contrast is noted to limit evaluation for mediastinal and especially hilar ad enopathy. There are no definitive greater than 1 cm hilar or mediastinal lymph nodes. No cardiomega ly or pericardial effusion is seen. There are coronary artery calcifications. OTHER: Patient is post cholecystectomy. There is a spinal curvature present. Thoracic spondylosis is present. Mild superior endplate wedge deformity present superior endplate of T9. Segmentation anomal y present at T2-3. IMPRESSION: Spinal curvature may be positional, there are degenerative disc changes in the visualized spine. Findings may represent osteoporotic compression fracture, mild loss of height superior endpla te T9, bone scan or MRI could be performed to assess for acuity. Stopped changes.
== END | disposition home or self-care (01) ==
LOC: RADCTMAIN 16:26
PROVIDERS: ATTEND Orthopaedic Surgery Sports Medicine
DX: R07.89 Other chest pain (principal); R07.82 Intercostal pain
CPT/HCPCS: 71250

== ENCOUNTER 2018-12-30 17:21 | Emergency (ER) | payer MEDICARE, OTHER ==
[2018-12-30 18:02] VITALS: RESP 20
[2018-12-30] MEDS ORDERED: ONDANSETRON 4 MG/2 ML VIAL IVP STA (18:19)
[2018-12-30] MEDS ORDERED: SODIUM CHLORIDE 0.9% 500 ML 500 ML IV STA (18:19)
[2018-12-30] MEDS ORDERED: HYDROmorphone 0.5 MG/0.5 ML SYRINGE IVP STA (18:37)
--- NOTE | 2018-12-30 18:38 | ED ---
General Adult HPI - General Chief complaint: Chest Pain Stated complaint: back pain Time Seen by Provider: 12/30/18 18:07 Source: patient Mode of arrival: ambulatory Limitations: no limitations - History of Present Illness Initial comments: 78-year-old female patient presents to the emergency department today for evaluation of mid back pain. Patient states the pain is in her mid spine radiates out to the bilateral flank. Patient states she did experiencing a fall 2 weeks ago and has been having right rib pain. Patient states the pain seemed to worsen last night. Patient states it hurts to take a deep breath. States her hurts to move. She denies any fever or chills. States she has been nauseated today. Denies any abdominal or chest pain. She denies any hematuria, dysuria, urinary frequency, urinary urgency. Denies any cough or sputum p roduction. She denies any radiation of the pain down her legs. Denies any lower extremity numbness, tingling, saddle anesthesia, loss of bowel or bladder control. Patient denies any recent rash, numbness, tingling, dizziness, weakness, hematuria, dysuria, urinary urgency, urinary frequency, headache, visual changes, or any other complaints. - Related Data Home Medications Medication Instructions Recorded Confirmed Aspirin [Adult Low Dose Aspirin EC] 81 mg PO DAILY 12/02/15 12/06/18 Atenolol [Tenormin] 25 mg PO DAILY 12/02/15 12/06/18 Atorvastatin [Lipitor] 40 mg PO HS 12/02/15 12/06/18 Vit A/Vit C/Vit E/Zinc/Copper 2 cap PO DAILY 12/02/15 12/06/18 [ICAPS SOFTGEL] Calcium Carbonate [Calcium] 600 mg PO DAILY 11/23/17 12/06/18 Ergocalciferol (Vitamin D2) 50,000 unit PO MILLS 11/23/17 12/06/18 [Vitamin D2] Lisinopril [Zestril] 5 mg PO DAILY 11/23/17 12/06/18 Meclizine [Antivert] 25 mg PO TID PRN 11/16/18 12/06/18 Oxybutynin Chloride [Oxybutynin 10 mg PO HS 11/16/18 12/06/18 Chloride ER] Sertraline [Zoloft] 100 mg PO AC-BID 11/16/18 12/06/18 Vit A/Vit C/Vit E/Zinc/Copper 1 cap PO HS 11/16/18 12/06/18 [ICAPS SOFTGEL] traZODone HCL [Desyrel] 100 mg PO HS 11/16/18 12/06/18 Previous Rx's Medication Instructions Recorded Ibuprofen [Motrin] 400 mg PO Q6HR PRN #24 tab 11/16/18 Methocarbamol [Robaxin] 500 mg PO TID PRN #15 tab 12/04/18 Cephalexin [Keflex] 500 mg PO Q8HR #21 cap 12/06/18 Ibuprofen [Motrin] 600 mg PO Q8HR PRN #20 tab 12/06/18 methylPREDNISolone Dose Pack 4 mg PO DIRECTED #21 package 12/06/18 [Medrol Dose Pack] Hydrocodone/Acetaminophen [Buckeye 1 tab PO Q6HR PRN #12 tab 12/30/18 5-325] Allergies Allergy/AdvReac Type Severity Reaction Status Date / Time No Known Allergies Allergy Verified 12/30/18 18:02 Review of Systems ROS Statement: Those systems with pertinent positive or pertinent negative responses have been documented in the HPI. ROS Other: All systems not noted in ROS Statement are negative. Past Medical History Past Medical History: Coronary Artery Disease (CAD), Hyperlipidemia, Hyp ertension, Osteoarthritis (OA) Additional Past Medical History / Comment(s): migraines, GOUT, UTI -STATED WAS STARTED FEW DAYS AGO ON ABX. History of Any Multi-Drug Resistant Organisms: None Reported Past Surgical History: Appendectomy, Back Surgery, Bladder Surgery, Cholecystectomy, Coronary Bypass/CABG, Hysterectomy, Joint Replacement, Orthopedic Surgery, Tonsillectomy Additional Past Surgical History / Comment(s): CABG 2007, rt knee surgery, surgery ingris thumbs, ingris cataracts, 01-06-16 TOTAL RT KNEE REPLACMENT Past Anesthesia/Blood Transfusion Reactions: Family History of Problems w/ Anesthesia, Motion Sickness, Postoperative Nausea & Vomiting (PONV) Additional Past Anesthesia/Blood Transfusion Reaction / Comment(s): HAS INNER DISTURBANCE CAUSES HER DIZZINESS AT TIMES. Past Psychological History: No Psychological Hx Reported Smoking Status: Never smoker Past Alcohol Use History: None Reported Past Drug Use History: None Reported - Past Family History Mother Family Medical History: No Reported History Father History Unknown: Yes General Exam Limitations: no limitations General appearance: alert, in no apparent distress, other (Physical well- developed, well-nourished elderly female patient in no acute distress. Vital signs upon presentation are temperature 98.3F, pulse 60, respirations 20, blood pressure 171/77, pulse ox 98% on room air.) Eye exam: Present: normal appearance, PERRL, EOMI. Absent: scleral icterus, conjunctival injection, periorbital swelling ENT exam: Present: normal exam, normal oropharynx, mucous membranes moist Respiratory exam: Present: normal lung sounds bilaterally. Absent: respiratory distress, wheezes, rales, rhonchi, stridor Cardiovascular Exam: Present: regular rate, normal rhythm, normal heart sounds. Absent: systolic murmur, diastolic murmur, rubs, gallop, clicks GI/Abdominal exam: Present: soft, normal bowel sounds. Absent: distended, tenderness, guarding, rebound, rigid Back exam: Present: normal inspection. Absent: CVA tenderness (R), CVA tenderness (L) Neurological exam: Present: alert, oriented X3, CN II-XII intact Psychiatric exam: Present: normal affect, normal mood Skin exam: Present: warm, dry, intact, normal color. Absent: rash Course Vital Signs 12/30/18 12/30/18 17:59 20:57 Temperature 98.3 F 99.2 F Pulse Rate 60 61 Respiratory 20 20 Rate Blood Pressure 171/77 169/89 O2 Sat by Pulse 98 98 Oximetry EKG Findings - EKG Comments: EKG Findings:: EKG obtained in 191 shows sinus bradycardia with a ventricular rate of 58, ID interval 162, QRS duration 86, QT 438, QTC 429. No evidence of ST elevation or significant depression. Medical Decision Making - Medical Decision Making 78 year-old female patient presents to the emergency department today for evaluation of mid back pain. Physical examination did reveal tenderness over the thoracic spine. Abdomen is soft and nontender. EKG showed normal sinus rhythm. Labs reviewed and are unremarkable. X-rays of the right ribs and chest are obtained and showed no abnormalities. X-ray of the thoracic spine did show compression deformities at T7, 8, 9, and 10. There is progression of the T10 compression fracture. I did discuss the findings and results with the patient. We did discuss the fracture as a cause for her symptoms. She'll be given a prescription for pain medication. She is referred to orthopedics for further evaluation. She is instructed to follow-up with her primary care physician for recheck in 1-2 days. Return parameters were discussed in detail. She verbalizes understanding and agrees with this plan. - Lab Data Result diagrams: 12/30/18 18:31 12/30/18 18:31 Lab Results 12/30/18 12/30/18 12/30/18 Range/Units 18:31 18:31 18:31 WBC 8.6 (3.8-10.6) k/uL RBC 4.15 (3.80-5.40) m/uL Hgb 11.7 (11.4-16.0) gm/dL Hct 35.9 (34.0-46.0) % MCV 86.6 (80.0-100.0) fL MCH 28.2 (25.0-35.0) pg MCHC 32.6 (31.0-37.0) g/dL RDW 15.5 (11.5-15.5) % Plt Count 265 (150-450) k/uL Neutrophils % 63 % Lymphocytes % 23 % Monocytes % 8 % Eosinophils % 4 % Basophils % 1 % Neutrophils # 5.4 (1.3-7.7) k/uL Lymphocytes # 2.0 (1.0-4.8) k/uL Monocytes # 0.7 (0-1.0) k/uL Eosinophils # 0.3 (0-0.7) k/uL Basophils # 0.0 (0-0.2) k/uL PT 10.5 (9.0-12.0) sec INR 1.0 (<1.2) APTT 24.2 (22.0-30.0) sec Sodium 141 (137-145) mmol/L Potassium 3.1 L (3.5-5.1) mmol/L Chloride 107 (98-107) mmol/L Carbon Dioxide 25 (22-30) mmol/L Anion Gap 9 mmol/L BUN 11 (7-17) mg/dL Creatinine 0.54 (0.52-1.04) mg/dL Est GFR (CKD-EPI)AfAm >90 (>60 ml/min/1.73 sqM) Est GFR (CKD-EPI)NonAf >90 (>60 ml/min/1.73 sqM) Glucose 102 H (74-99) mg/dL Calcium 9.5 (8.4-10.2) mg/dL Magnesium 1.7 (1.6-2.3) mg/dL Total Bilirubin 0.4 (0.2-1.3) mg/dL AST 15 (14-36) U/L ALT <6 L (9-52) U/L Alkaline Phosphatase 98 (38-126) U/L Troponin I (0.000-0.034) ng/mL Total Protein 6.5 (6.3-8.2) g/dL Albumin 3.6 (3.5-5.0) g/dL Urine Color Urine Appearance (Clear) Urine pH (5.0-8.0) Ur Specific [place] (1.001-1.035) Urine Protein (Negative) Urine Glucose (UA) (Negative) Urine Ketones (Negative) Urine Blood (Negative) Urine Nitrite (Negative) Urine Bilirubin (Negative) Urine Urobilinogen (<2.0) mg/dL Ur Leukocyte Esterase (Negative) Urine RBC (0-5) /hpf Urine WBC (0-5) /hpf Ur Squamous Epith Cells (0-4) /hpf Amorphous Sediment (None) /hpf Urine Mucus (None) /hpf 12/30/18 12/30/18 Range/Units 18:31 19:45 WBC (3.8-10.6) k/uL RBC (3.80-5.40) m/uL Hgb (11.4-16.0) gm/dL Hct (34.0-46.0) % MCV (80.0-100.0) fL MCH (25.0-35.0) pg MCHC (31.0-37.0) g/dL RDW (11.5-15.5) % Plt Count (150-450) k/uL Neutrophils % % Lymphocytes % % Monocytes % % Eosinophils % % Basophils % % Neutrophils # (1.3-7.7) k/uL Lymphocytes # (1.0-4.8) k/uL Monocytes # (0-1.0) k/uL Eosinophils # (0-0.7) k/uL Basophils # (0-0.2) k/uL PT (9.0-12.0) sec INR (<1.2) APTT (22.0-30.0) sec Sodium (137-145) mmol/L Potassium (3.5-5.1) mmol/L Chloride (98-107) mmol/L Carbon Dioxide (22-30) mmol/L Anion Gap mmol/L BUN (7-17) mg/dL Creatinine (0.52-1.04) mg/dL Est GFR (CKD-EPI)AfAm (>60 ml/min/1.73 sqM) Est GFR (CKD-EPI)NonAf (>60 ml/min/1.73 sqM) Glucose (74-99) mg/dL Calcium (8.4-10.2) mg/dL Magnesium (1.6-2.3) mg/dL Total Bilirubin (0.2-1.3) mg/dL AST (14-36) U/L ALT (9-52) U/L Alkaline Phosphatase (38-126) U/L Troponin I <0.012 (0.000-0.034) ng/mL Total Protein (6.3-8.2) g/dL Albumin (3.5-5.0) g/dL Urine Color Yellow Urine Appearance Clear (Clear) Urine pH 7.0 (5.0-8.0) Ur Specific [place] 1.016 (1.001-1.035) Urine Protein Negative (Negative) Urine Glucose (UA) Negative (Negative) Urine Ketones Negative (Negative) Urine Blood Negative (Negative) Urine Nitrite Negative (Negative) Urine Bilirubin Negative (Negative) Urine Urobilinogen <2.0 (<2.0) mg/dL Ur Leukocyte Esterase Moderate H (Negative) Urine RBC 3 (0-5) /hpf Urine WBC 8 H (0-5) /hpf Ur Squamous Epith Cells 1 (0-4) /hpf Amorphous Sediment Rare H (None) /hpf Urine Mucus Rare H (None) /hpf - Radiology Data Radiology results: report reviewed, image reviewed 5 views including chest x-ray was obtained. Report was reviewed in its entirety. Impression by Dr. Fraser shows normal chest. Negative right rib exam. Chest on change compared to old exam. 3 views of the thoracic spine are obtained. Report was reviewed in its entirety. Impression by Dr. Fraser shows multiple mild compression fractures related to osteoporosis. The T9, T8, and T7 vertebrae appeared to show more wedging last exam of 12/06/2017. There is progression of the compression of T10 compared to old exam. Disposition Clinical Impression: Thoracic compression fracture Disposition: HOME SELF-CARE Condition: Good Instructions (If sedation given, give patient instructions): Vertebral Compression Fracture (ED) Additional Instructions: Take pain medications as directed. Follow-up with clinical support specialist for further evaluation as soon as possible. Return to the emergency department immediately for any new, worsening, or concerning symptoms. Prescriptions: Hydrocodone/Acetaminophen [Buckeye 5-325] 1 tab PO Q6HR PRN #12 tab PRN Reason: Pain Is patient prescribed a controlled substance at d/c from ED?: Yes When asked, does pt state using other controlled substances?: No If prescribed controlled substance>3 days was MAPS reviewed?: Prescribed <3 Days If opioid is for acute pain is fill amount 7 days or less?: Yes If Rx opioid, was Start Talking consent form obtained?: Yes Referrals: Miguelito Rodriguez MD [Primary Care Provider] - 1-2 days Leo Preciado DO [Doctor of Osteopathic Medicine] - 1-2 days Time of Disposition: 20:22
[2018-12-30 18:40] LABS: Basophils % (A) 1 %; Eosinophils # (A) 0.3 k/uL (0-0.7); Eosinophils % (A) 4 %; HCT 35.9 % (34.0-46.0); HGB 11.7 gm/dL (11.4-16.0); Lymphocytes % (A) 23 %; MCH 28.2 pg (25.0-35.0); MCHC 32.6 g/dL (31.0-37.0); MCV 86.6 fL (80.0-100.0); Mean Platelet Volume 7.5; Monocytes # (A) 0.7 k/uL (0-1.0); Monocytes % (A) 8 %; Neutrophils # (A) 5.4 k/uL (1.3-7.7); Neutrophils % (A) 63 %; Platelet Count 265 k/uL (150-450); RBC 4.15 m/uL (3.80-5.40); RDW 15.5 % (11.5-15.5); WBC 8.6 k/uL (3.8-10.6)
[2018-12-30 18:49] LABS: ALT <6 U/L (9-52); AST 15 U/L (14-36); African American GFR (CKD) >90 (>60 ml/min/1.73 sqM); Albumin 3.6 g/dL (3.5-5.0); Alkaline Phosphatase 98 U/L (38-126); Anion Gap 9 mmol/L; Blood Urea Nitrogen 11 mg/dL (7-17); Calcium 9.5 mg/dL (8.4-10.2); Carbon Dioxide 25 mmol/L (22-30); Chloride 107 mmol/L (98-107); Glucose 102 mg/dL (74-99); Magnesium 1.7 mg/dL (1.6-2.3); Non-African American GFR(CKD) >90 (>60 ml/min/1.73 sqM); Potassium 3.1 mmol/L (3.5-5.1); Sodium 141 mmol/L (137-145); Total Bilirubin 0.4 mg/dL (0.2-1.3); Total Protein 6.5 g/dL (6.3-8.2)
[2018-12-30 18:52] LABS: Partial Thromboplastin Time 24.2 sec (22.0-30.0); Prothrombin Time 10.5 sec (9.0-12.0)
--- NOTE | 2018-12-30 19:10 | XR ---
EXAMINATION TYPE: XR ribs RT w pa chest xray DATE OF EXAM: 12/30/2018 COMPARISON: 12/06/2018 HISTORY: Back pain. Rib pain TECHNIQUE: 5 views including chest x-ray FINDINGS: Heart and mediastinum are normal. There are sternal wires. Lungs are clear. There is no ple ural effusion or pneumothorax. The right ribs appear intact. There is no evidence of rib fracture. IMPRESSION: Normal chest. Negative right rib exam. Chest unchanged compared to old exam.
--- NOTE | 2018-12-30 19:12 | XR ---
EXAMINATION TYPE: XR thoracic spine complete DATE OF EXAM: 12/30/2018 COMPARISON: Chest x-ray 12/06/2018 HISTORY: Back pain. Fall. TECHNIQUE: 3 views FINDINGS: There is osteopenia. There is 30% anterior wedging of T10. There is 25% wedging of T9 and T 8. There is no paraspinal mass. Posterior elements appear intact. I see no focal bone destruction. IMPRESSION: Multiple mild compression fractures related to osteoporosis. The T9 and T8 T7 vertebra ap peared to show more wedging last exam of 12/06/2018. There is progression of the compression of T10 co mpared to old exam.
[2018-12-30] MEDS ORDERED: POTASSIUM CHLORIDE ER 20 MEQ TAB.ER PO STA (19:19)
[2018-12-30 19:56] LABS: Amorphous Sediment,Urine Rare /hpf; Appearance,Urine Clear (Clear); Bilirubin,Urine Negative (Negative); Blood,Urine Negative (Negative); Color,Urine Yellow; Glucose,Urine (UA) Negative (Negative); Ketones,Urine Negative (Negative); Leukocyte Esterase,Urine Moderate (Negative); Mucus,Urine Rare /hpf; Nitrite,Urine Negative (Negative); Protein,Urine Negative (Negative); RBC,Urine 3 /hpf (0-5); Specific Gravity,Urine 1.016 (1.001-1.035); Squamous Epithelial Cell,Urine 1 /hpf (0-4); Urobilinogen,Urine <2.0 mg/dL (<2.0); WBC,Urine 8 /hpf (0-5)
[2018-12-30] MEDS ORDERED: HYDROcodone/APAP 5-325MG 1 EACH TAB PO STA (20:54)
[2018-12-30 20:59] VITALS: BP 169/89; PULSE 61; TEMP 99.2
== END 2018-12-30 21:20 | disposition home or self-care (01) ==
LOC: EC 17:21
DX: M80.88XA Other osteoporosis with current pathological fracture, vertebra(e), initial encounter for fracture (principal); I25.10 Atherosclerotic heart disease of native coronary artery without angina pectoris; E78.5 Hyperlipidemia, unspecified; I10 Essential (primary) hypertension; M19.90 Unspecified osteoarthritis, unspecified site; M10.9 Gout, unspecified; Z79.82 Long term (current) use of aspirin; Z79.899 Other long term (current) drug therapy; Z95.1 Presence of aortocoronary bypass graft; Z96.651 Presence of right artificial knee joint; Z98.42 Cataract extraction status, left eye; Z98.41 Cataract extraction status, right eye; W19.XXXA Unspecified fall, initial encounter
CPT/HCPCS: 36415; 93005; 80053; 83735; 84484; 85025; 85610; 85730; 81001; 87086; 71101; 72072; 99284; 96374; 96375; 96361 ×3; J2405; J1170

== ENCOUNTER → 2019-01-08 | Outpatient (CLI) | payer MEDICARE, OTHER ==
--- NOTE | 2019-01-08 19:06 | NM ---
EXAMINATION TYPE: NM bone scan whole body DATE OF EXAM: 01/08/2019 COMPARISON: NONE HISTORY: 78-year-old female low back pain, wedge compression fracture. TECHNIQUE: Delayed whole-body scanning was performed following the injection of 22.5 mCi Tc 99m MDP. Images acquired 3 hours post injection. FINDINGS: Degenerative change at the AC joints. There is linear distribution of increased activity involving th e anterior left upper ribs, most intensely involving the left anterior second rib. There is a degener ated DEXA convex curvature of the lumbar spine with degenerative activity along the left side of conc avity. Additional degenerative activity along the posterior elements of the cervical spine and in the bilateral mid to hindfoot regions. Lesser degree of degenerative activity at the wrist and base of t he right thumb as well as the first MTP joint on the right. Intense plate of increased activity invol ving a vertebral body in the lower thoracic spine, possible T9. Photopenic defect corresponding to ri ght knee replacement. IMPRESSION: Scattered degenerative tracer activity as above. Additional posttraumatic activity involving a verteb ral body fracture in the lower third thoracic spine, probably T9. Post traumatic activity involving a nterior upper left ribs.
== END | disposition home or self-care (01) ==
LOC: RADNMMAIN 09:57
PROVIDERS: ATTEND Orthopaedic Surgery Orthopaedic Surgery of the Spine
DX: S22.038A Other fracture of third thoracic vertebra, initial encounter for closed fracture (principal)
CPT/HCPCS: 78306; A9503

== ENCOUNTER → 2019-01-29 | Outpatient (CLI) | payer MEDICARE, OTHER ==
--- NOTE | 2019-01-29 08:40 | XR ---
EXAMINATION TYPE: XR chest 2V DATE OF EXAM: 01/29/2019 COMPARISON: Chest CT December 12, 2018. Chest x-ray December 30, 2018 HISTORY: Presurgical study. TECHNIQUE: Frontal and lateral views of the chest are obtained. FINDINGS: Overlying sternal wires and mediastinal clips are redemonstrated. There is some chronic par enchymal change in the bases without suspicious focal air space opacity, pleural effusion, or pneumot horax seen. The cardiac silhouette size remains within normal limits. The osseous structures remai n demineralized. Underlying scoliotic curvature is redemonstrated. Mild height loss at T9 and adjacen t vertebra thought present on lateral view. IMPRESSION: Chronic changes without acute pulmonary process.
[2019-01-29 08:48] LABS: Basophils # (A) 0.1 k/uL (0-0.2); Basophils % (A) 2 %; Eosinophils # (A) 0.3 k/uL (0-0.7); Eosinophils % (A) 6 %; HCT 37.1 % (34.0-46.0); HGB 11.6 gm/dL (11.4-16.0); Lymphocytes # (A) 2.2 k/uL (1.0-4.8); Lymphocytes % (A) 34 %; MCH 27.7 pg (25.0-35.0); MCHC 31.3 g/dL (31.0-37.0); MCV 88.6 fL (80.0-100.0); Mean Platelet Volume 6.9; Monocytes # (A) 0.3 k/uL (0-1.0); Monocytes % (A) 5 %; Neutrophils # (A) 3.2 k/uL (1.3-7.7); Neutrophils % (A) 51 %; Platelet Count 235 k/uL (150-450); RBC 4.19 m/uL (3.80-5.40); RDW 15.4 % (11.5-15.5); WBC 6.3 k/uL (3.8-10.6)
[2019-01-29 08:58] LABS: INR 0.9 (<1.2); Partial Thromboplastin Time 25.3 sec (22.0-30.0); Prothrombin Time 10.2 sec (9.0-12.0)
[2019-01-29 09:01] LABS: African American GFR (CKD) >90 (>60 ml/min/1.73 sqM); Anion Gap 7 mmol/L; Blood Urea Nitrogen 12 mg/dL (7-17); Calcium 9.5 mg/dL (8.4-10.2); Carbon Dioxide 28 mmol/L (22-30); Chloride 110 mmol/L (98-107); Glucose 60 mg/dL (74-99); Potassium 4.3 mmol/L (3.5-5.1); Sodium 145 mmol/L (137-145)
[2019-01-29 09:02] LABS: Appearance,Urine Clear (Clear); Bacteria,Urine Rare /hpf; Bilirubin,Urine Negative (Negative); Blood,Urine Negative (Negative); Color,Urine Yellow; Glucose,Urine (UA) Negative (Negative); Hyaline Casts,Urine 1 /lpf (0-2); Ketones,Urine Negative (Negative); Leukocyte Esterase,Urine Trace (Negative); Mucus,Urine Rare /hpf; Nitrite,Urine Negative (Negative); Protein,Urine Negative (Negative); RBC,Urine <1 /hpf (0-5); Squamous Epithelial Cell,Urine <1 /hpf (0-4); Urobilinogen,Urine <2.0 mg/dL (<2.0); WBC,Urine 1 /hpf (0-5)
== END | disposition home or self-care (01) ==
LOC: LABPAT 08:03
PROVIDERS: ATTEND Orthopaedic Surgery Orthopaedic Surgery of the Spine
DX: Z01.818 Encounter for other preprocedural examination (principal); Z01.812 Encounter for preprocedural laboratory examination; J98.4 Other disorders of lung; M84.48XA Pathological fracture, other site, initial encounter for fracture; Z79.01 Long term (current) use of anticoagulants
CPT/HCPCS: 36415; 71046; 80048; 81001; 85025; 85610; 85730

== ENCOUNTER 2019-02-05 08:32 | Day surgery (SDC) | payer MEDICARE, OTHER ==
[2019-01-31 14:47] VITALS: BMI 23.5
[~2019-02-05 08:32] MED LIST: DEXAMETHASONE SOD PHOSPHATE 10 MG/ML 1 ML VIAL IV ONE; HYDROmorphone 0.5 MG/0.5 ML SYRINGE IVP PRN; LACTATED RINGERS 1,000 ML IV SCH; LIDOCAINE 1% 20 ML VIAL (10MG/ML) FOR IV START INTRADERMA PRN; ONDANSETRON 4 MG/2 ML VIAL IVP ONE; ONDANSETRON 4 MG/2 ML VIAL IVP PRN; SODIUM CHLORIDE 0.9% IRRIGATIO 1,000 ML IRRIGATION ONE
[2019-02-05] MEDS ORDERED: MIDAZOLAM 2 MG/2 ML VIAL ONE (09:59)
[2019-02-05] MEDS ORDERED: fentaNYL (PF) 50 MCG/ML 2 ML AMP ONE (09:59)
[2019-02-05] MEDS ORDERED: LIDOCAINE 1% INJ 10MG/ML (20 ML MDV) ONE (09:59)
[2019-02-05] MEDS ORDERED: PROPOFOL 10 MG/ML 20 ML VIAL IV ONE (09:59)
[2019-02-05] MEDS ORDERED: SUCCINYLCHOLINE CHLORIDE 100 MG/5 ML SYR IV ONE (09:59)
[2019-02-05] MEDS ORDERED: ePHEDrine SULFATE/0.9% NACL/PF 50 MG/5 ML SYRINGE IV ONE (09:59)
[2019-02-05] MEDS ORDERED: ceFAZolin 1,000 MG VIAL IVPB ONE (10:06)
[2019-02-05] MEDS ORDERED: BUPIVACAINE (PF) 0.5% 30 ML VIAL SQ ONE (10:33)
[2019-02-05] MEDS ORDERED: HYDROmorphone 0.5 MG/0.5 ML SYRINGE IVP PRN (10:59)
[2019-02-05] MEDS ORDERED: IBUPROFEN 600 MG TAB PO PRN (10:59)
[2019-02-05] MEDS ORDERED: BENZOCAINE/MENTHOL LOZENG 1 EACH LOZENGE MUCOUS MEM PRN (10:59)
[2019-02-05] MEDS ORDERED: MAGNESIUM HYDROXIDE 2,400 MG/10 ML CUP PO PRN (10:59)
[2019-02-05] MEDS ORDERED: ONDANSETRON 4 MG/2 ML VIAL IVP PRN (10:59)
[2019-02-05] MEDS ORDERED: KETOROLAC 30 MG/ML 1 ML VIAL IVP PRN (10:59)
[2019-02-05] MEDS ORDERED: HYDROcodone/APAP 5-325MG 1 EACH TAB PO PRN (10:59)
[2019-02-05] MEDS ORDERED: SODIUM CHLORIDE 0.9% 1,000 ML IV SCH (11:00)
[2019-02-05] MEDS ORDERED: MECLIZINE 25 MG TAB PO PRN (11:02)
[2019-02-05 11:06] VITALS: TEMP 97.2
--- NOTE | 2019-02-05 11:07 | P.OP ---
Date of Procedure: 02/05/19 Preoperative Diagnosis: T9 vertebral compression fracture, traumatic osteoporotic Thoracic back pain Postoperative Diagnosis: Same Anesthesia: GETA Pathology: other (T9 vertebral body biopsy sent to pathology) Condition: stable Disposition: PACU Description of Procedure: BRIEF OPERATIVE NOTE Preoperative Diagnosis: Vertebral compression fracture T9, traumatic osteoporotic, thoracic back pain Postoperative Diagnosis: Same Procedure: Kyphoplasty of T9 Vertebral body biopsy of T9 Use of biplanar fluoroscopic guidance Surgeon: Dr. Preciado Auto Overhauler: Sabino Figueroa is present throughout the entire the case persistence during positioning, dissection, exposure, visualization, and all crucial elements of the case as well as closure. Anesthesia: General anesthesia per Dr. Chen Estimated blood loss: Less than 10 mL Specimen: Vertebral body of T9 biopsy sent to pathology in formalin Complications: None apparent Components implanted: Bone cement Disposition: To recovery room in good stable condition. OPERATIVE INDICATIONS The patient has been having issues in their back ever since sustaining a low energy injury. The patient has very osteopenic bones and has been having pain at her mid back over the past couple of months The patient has been through conservative treatment. They attempted conservative care with bracing however they're not having any benefit despite brace use. They continue to have significant pain and debility due to their fracture. We discussed various treatment options including surgery, and the patient wishes to proceed with surgery for a kyphoplasty with biopsy of T9. We discussed the risk, patient's alternatives and benefits of surgery including but not limited to, risk of bleeding risk of infection, risk of need for further surgery, risk of decreased, loss of motion, loss of function, cement extravasation, nerve damage, paralysis, heart attack, blindness and . OPERATIVE SUMMARY After discussing all the risks, patient alternatives and benefits at length, the patient elected to proceed with surgical intervention, signed informed consent, and presented for their procedure. The patient was seen and examined in the preoperative holding area and the surgical site was marked. The patient was given antibiotics and brought to the operating room. The patient was sedated and intubated by anesthesia in standard fashion. The patient was positioned on to the operating room table in a prone position on the appropriate well-padded and well molded bilateral chest rolls. We were careful to pad any bony prominences and pressure points. We were careful to maintain the patient's cervical spine and good neutral alignment and position throughout. We used 2 C-arm machines to establish biplanar fluoroscopic guidance in AP and lateral positions. We were able to localize the fractures appropriately at T9. The patient was prepped and draped in a normal standard fashion. An appropriate timeout and keystone protocol performed. We were able to proceed with the surgery. The local wound area was infiltrated with local anesthetic. An incision was made over the lateral aspect of the pedicle over the appropriate levels with a small 2 mm stab incision on the right. Intraoperative fluoroscopy was taken which showed a marker at the appropriate level at T9. With the appropriate level positively confirmed, I was able to position a sharp trocar over the lateral aspect of the pedicle. As able to advance the trocar into the pedicle and into the posterior aspect of vertebral body being careful to avoid penetration cephalad caudad or medially. The trocar was placed appropriately into the posterior aspect of vertebral body at the appropriate levels. This was confirmed with C-arm guidance. With the trocar intact I was then able to take a bone biopsy with a biopsy punch or a bony drill. The biopsy specimen was passed off to be sent to selin g[facility] in formalin. I was then able to place the kyphoplasty balloon within the vertebral body of T9. The position was checked on C-arm. I was able to inflate the balloon under low pressure and visualization with C-arm. The balloon was well enclosed within the vertebral body. The cement was prepared. With the cement at appropriate working condition the balloons were deflated and removed. I was able to place bony cement with trocar with the cement delivery device under low pressure. It had good fill within the vertebral body. We placed just over 3 mL of bone cement within the vertebral body of T9 There is no evidence of any extravasation of the cement posteriorly toward the canal. The cement was well contained at the appropriate levels. The cement was allowed to cure appropriately. The trochars removed and final images were taken on C-arm. This showed the cement at the appropriate levels of T9. We were able to proceed with closure. The wound was cleaned and dried and morenita ssed with the appropriate dressing. The drapes were broken down. The patient was gently rolled back onto their hospital bed being careful to maintain their cervical spine and good neutral alignment and position. They were woken up by anesthesia, extubated, and brought to the recovery room in good stable condition. The patient will be admitted to the hospital for observation and for appropriate postoperative care, medical management and monitoring. We will continue to follow them closely about the postoperative course.
--- NOTE | 2019-02-05 11:09 | FL ---
EXAMINATION TYPE: FL guidance operating room, XR lumbar spine 2 or 3V DATE OF EXAM: 02/05/2019 CLINICAL HISTORY: Back pain. TECHNIQUE: Fluoroscopy. Intraoperative 2 views lumbar spine. COMPARISON: None. FINDINGS: Fluoroscopic guidance was provided during kyphoplasty procedure performed by Dr. Preciado. A total of 52 seconds of fluoroscopic time was utilized during the procedure and 4 spot images are acq uired. Images acquired show injection of cement material into a lower thoracic vertebra. Overlying sternal w ires are present. IMPRESSION: As Above.
[2019-02-05 11:13] VITALS: RESP 16
[2019-02-05 12:33] VITALS: BP 110/64; PULSE 75
[2019-02-05] MEDS ORDERED: SERTRALINE 100 MG TAB PO SCH (17:30)
[2019-02-05] MEDS ORDERED: ATORVASTATIN 40 MG TAB PO SCH (21:00)
[2019-02-05] MEDS ORDERED: CALCIUM CARBONATE 600 MG PO SCH (21:00)
[2019-02-05] MEDS ORDERED: traZODone HCL 100 MG TAB PO SCH (21:00)
[2019-02-05] MEDS ORDERED: NON FORMULARY DRUG (Mirabegron [Myrbetriq] 50 MG) PO SCH (21:00)
[2019-02-06] MEDS ORDERED: VIT A,C & E-LUTEIN-MINERALS 1 EACH TAB PO SCH (09:00)
[2019-02-06] MEDS ORDERED: ATENOLOL 25 MG TAB PO SCH (09:00)
[2019-02-06] MEDS ORDERED: ASPIRIN 81 MG PO SCH (09:00)
[2019-02-06] MEDS ORDERED: LISINOPRIL 5 MG TAB PO SCH (09:00)
[2019-02-09] MEDS ORDERED: ERGOCALCIFEROL 50,000 UNIT CAP PO SCH (09:00)
== END 2019-02-05 13:04 | disposition home or self-care (01) ==
LOC: OR 08:32
PROVIDERS: ATTEND Orthopaedic Surgery Orthopaedic Surgery of the Spine
DX: S22.070A Wedge compression fracture of T9-T10 vertebra, initial encounter for closed fracture (principal); M81.0 Age-related osteoporosis without current pathological fracture; I11.9 Hypertensive heart disease without heart failure; E78.00 Pure hypercholesterolemia, unspecified; R53.83 Other fatigue; R53.81 Other malaise; M47.9 Spondylosis, unspecified; Z91.81 History of falling; H81.13 Benign paroxysmal vertigo, bilateral; Z79.899 Other long term (current) drug therapy; Z79.82 Long term (current) use of aspirin; Z79.891 Long term (current) use of opiate analgesic; E78.5 Hyperlipidemia, unspecified; D68.9 Coagulation defect, unspecified; Z90.710 Acquired absence of both cervix and uterus; Z96.651 Presence of right artificial knee joint; F41.8 Other specified anxiety disorders; I25.10 Atherosclerotic heart disease of native coronary artery without angina pectoris; Z95.1 Presence of aortocoronary bypass graft; Z90.49 Acquired absence of other specified parts of digestive tract; Z98.1 Arthrodesis status; Z79.1 Long term (current) use of non-steroidal anti-inflammatories (NSAID); Z97.3 Presence of spectacles and contact lenses; Z98.49 Cataract extraction status, unspecified eye; Z97.2 Presence of dental prosthetic device (complete) (partial); Z88.8 Allergy status to other drugs, medicaments and biological substances; M41.86 Other forms of scoliosis, lumbar region; F45.41 Pain disorder exclusively related to psychological factors; W19.XXXA Unspecified fall, initial encounter; Y93.89 Activity, other specified
CPT/HCPCS: 22513; 86900; 86901; 86850; 88307; 88311; 72100; C1713; J2250; J2405; J0690; J2001; J3010; J0330; J2704

== ENCOUNTER → 2019-05-12 | Outpatient (CLI) | payer MEDICARE, OTHER ==
[2019-05-12 15:03] LABS: HCT 37.1 % (34.0-46.0); HGB 12.2 gm/dL (11.4-16.0); MCH 29.3 pg (25.0-35.0); MCHC 32.9 g/dL (31.0-37.0); MCV 89.1 fL (80.0-100.0); Mean Platelet Volume 7.7; Platelet Count 204 k/uL (150-450); RBC 4.17 m/uL (3.80-5.40); RDW 14.8 % (11.5-15.5); WBC 7.4 k/uL (3.8-10.6)
[2019-05-12 15:14] LABS: Potassium 4.1 mmol/L (3.5-5.1)
== END ==
LOC: LABPAT 14:12
PROVIDERS: ATTEND Internal Medicine Cardiovascular Disease
DX: Z01.812 Encounter for preprocedural laboratory examination (principal); I25.810 Atherosclerosis of coronary artery bypass graft(s) without angina pectoris
CPT/HCPCS: 80051; 82565; 84520; 85027

== ENCOUNTER → 2019-05-20 | Day surgery (SDC) | payer MEDICARE, OTHER ==
[2019-05-15 14:53] VITALS: BMI 23.7
[~2019-05-20] MED LIST changes: +ALPRAZolam 0.25 MG TAB PO PRN; +ALPRAZolam 0.5 MG TAB PO PRN; +ASPIRIN 325 MG TAB PO ONE; +ATORVASTATIN 80 MG TAB PO ONE; -DEXAMETHASONE SOD PHOSPHATE 10 MG/ML 1 ML VIAL IV ONE; -HYDROmorphone 0.5 MG/0.5 ML SYRINGE IVP PRN; +IOPAMIDOL-370 125ML BTL INJ ONE; -LACTATED RINGERS 1,000 ML IV SCH; -LIDOCAINE 1% 20 ML VIAL (10MG/ML) FOR IV START INTRADERMA PRN; +LIDOCAINE 1% INJ 10MG/ML (20 ML MDV) SQ ONE; +MIDAZOLAM 2 MG/2 ML VIAL IV ONE; +NITROGLYCERIN SL TABS 0.4 MG TAB SUBLINGUAL PRN; -ONDANSETRON 4 MG/2 ML VIAL IVP ONE; -ONDANSETRON 4 MG/2 ML VIAL IVP PRN; +RX INFO: IV CONTRAST WAS GIVEN 1 EACH MISC MISCELLANE PRN; +SODIUM CHLORIDE 0.9% 1,000 ML IV SCH; +SODIUM CHLORIDE 0.9% 1,000 ML in EMPTY BAG 1 BAG IV ONE; -SODIUM CHLORIDE 0.9% IRRIGATIO 1,000 ML IRRIGATION ONE; +fentaNYL (PF) 50 MCG/ML 2 ML AMP IV ONE
[2019-05-20 06:51] VITALS: TEMP 98.2
--- NOTE | 2019-05-20 08:30 | P.CARDCATH ---
Date of Procedure: 05/20/19 Preoperative Diagnosis: Ischemic heart disease, previous bypass surgery and positive stress test Postoperative Diagnosis: Total occluded ROCKWELL graft to the LAD and patent vein graft to the diagonal and LAD. Rest of the coronary system is free of any occlusive disease Description of Procedure: HISTORY: This is a 79-year-old female with history of ischemic heart disease with previous bypass surgery with the ROCKWELL graft to the LAD and vein graft to the diagonal. Recently patient had a stress test and there was evidence of ischemia in the lateral wall. Patient is advised to have a cardiac catheterization for definitive diagnosis CONSENT:I have discussed the risks, benefits and alternative therapies for the above-mentioned procedure and for both sedation/analgesia as well as necessary blood product administration, if indicated, as they pertain to this patient. The patient has indicated understanding and acceptance of the risks and procedures discussed. PROCEDURE: Patient was brought to the lab in a fasting state. Patient was given some IV sedation. The right groin is infiltrated with lidocaine and right femoral artery was entered using Seldinger technique. A 6-Croat[place] catheter was left in place and selective coronary arteriography was performed. Patient tolerated the procedure well. Femoral angiogram was performed and manual compression was applied for hemostasis. No immediate complications were noted and patient was transferred to [facility] in a stable condition Conscious Sedation: Versed 1mg Fentanyl 25 g Duration 25minutes HEMODYNAMICS: The aortic pressure is about 150/70. The left ventricular end- diastolic pressure was not measured SELECTIVE CORONARY ARTERIOGRAPHY: LEFT MAIN: Normal length and free of occlusive disease THE LEFT ANTERIOR DESCENDING CORONARY ARTERY:. Totally occluded in the proximal portion THE LEFT CIRCUMFLEX AND IS CORONARY ARTERY: And caliber vessel giving rise to good-sized OM branch. The circumflex coronary artery and its branches are free of occlusive disease. It is a dominant vessel giving rise to PDA THE RIGHT CORONARY ARTERY: This is a nondominant vessel free of any significant occlusive disease. THE ROCKWELL GRAFT TO THE LAD: This is atrophic and very small without any antegrade flow into the LAD. THE VEIN GRAFT TO THE DIAGONAL : This is a good sized graft and patent throat its length and also at the proximal and distal anastomosis. It provides flow into the diagonal and also to LAD. The diagonal and LAD appeared to be free of occlusive disease LEFT VENTRICULOGRAPHY:. This is not performed FINAL IMPRESSION:. Total occlusion of the proximal LAD. Atrophic ROCKWELL without any antegrade flow. Patent vein graft to the diagonal which provides flow to the LAD also. Rest of the coronary system is free of occlusive disease PLAN:. Maximum medical therapy and this factor modification PROGNOSIS:. Good
[2019-05-20 10:09] VITALS: RESP 16
[2019-05-20 15:15] VITALS: BP 136/64; PULSE 58
== END ==
LOC: CATHCVL 06:11
PROVIDERS: ATTEND Internal Medicine Cardiovascular Disease
DX: I25.810 Atherosclerosis of coronary artery bypass graft(s) without angina pectoris (principal); I25.10 Atherosclerotic heart disease of native coronary artery without angina pectoris; I25.82 Chronic total occlusion of coronary artery; I10 Essential (primary) hypertension; E78.5 Hyperlipidemia, unspecified; E78.00 Pure hypercholesterolemia, unspecified; Z95.1 Presence of aortocoronary bypass graft; Z79.82 Long term (current) use of aspirin; Z79.899 Other long term (current) drug therapy; Z88.8 Allergy status to other drugs, medicaments and biological substances
CPT/HCPCS: 93455; C1769 ×3; C1894; J2250; J2001; J3010; Q9967

== ENCOUNTER 2020-03-25 10:02 | Day surgery (SDC) | payer MEDICARE, OTHER ==
[2020-03-24 08:37] VITALS: BMI 24.9
[~2020-03-25 10:02] MED LIST changes: +ACETAMINOPHEN TAB 500 MG TAB PO ONE; -ALPRAZolam 0.25 MG TAB PO PRN; -ALPRAZolam 0.5 MG TAB PO PRN; -ASPIRIN 325 MG TAB PO ONE; -ATORVASTATIN 80 MG TAB PO ONE; +DEXAMETHASONE SOD PHOSPHATE 4 MG/ML 1 ML VIAL IV ONE; +GABAPENTIN 300 MG CAP PO ONE; +HYDROmorphone 0.5 MG/0.5 ML SYRINGE IVP PRN; -IOPAMIDOL-370 125ML BTL INJ ONE; -LIDOCAINE 1% INJ 10MG/ML (20 ML MDV) SQ ONE; +MELOXICAM 7.5 MG TAB PO ONE; -MIDAZOLAM 2 MG/2 ML VIAL IV ONE; -NITROGLYCERIN SL TABS 0.4 MG TAB SUBLINGUAL PRN; +ONDANSETRON 4 MG/2 ML VIAL IVP ONE; -RX INFO: IV CONTRAST WAS GIVEN 1 EACH MISC MISCELLANE PRN; -SODIUM CHLORIDE 0.9% 1,000 ML IV SCH; -SODIUM CHLORIDE 0.9% 1,000 ML in EMPTY BAG 1 BAG IV ONE; +TRANEXAMIC ACID 1,000 MG in SODIUM CHLORIDE 0.9% 100 ML IVPB ONE; +VANCOMYCIN 1,000 MG in SODIUM CHLORIDE 0.9% 250 ML IVPB ONE; -fentaNYL (PF) 50 MCG/ML 2 ML AMP IV ONE
[2020-03-25] MEDS: LACTATED RINGERS 1,000 ML IV SCH ×3 (11:03→21:39)
[2020-03-25] MEDS ORDERED: MIDAZOLAM 2 MG/2 ML VIAL IV ONE (11:24)
[2020-03-25] MEDS ORDERED: NALOXONE 0.4 MG/ML 1 ML VIAL IV PRN (11:39)
[2020-03-25] MEDS ORDERED: ONDANSETRON 4 MG/2 ML VIAL IVP PRN (11:39)
[2020-03-25] MEDS ORDERED: ACETAMINOPHEN TAB 325 MG TAB PO PRN (11:39)
[2020-03-25] MEDS ORDERED: MAGNESIUM HYDROXIDE 2,400 MG/10 ML CUP PO PRN (11:39)
[2020-03-25] MEDS ORDERED: TEMAZEPAM 15 MG CAP PO PRN (11:39)
[2020-03-25] MEDS ORDERED: diazePAM 5 MG TAB PO PRN (11:39)
[2020-03-25] MEDS ORDERED: HYDROmorphone 0.5 MG/0.5 ML SYRINGE IVP PRN ×3 (11:39)
[2020-03-25] MEDS ORDERED: HYDROcodone/APAP 5-325MG 1 EACH TAB PO PRN (11:39)
[2020-03-25] MEDS ORDERED: NA PHOS,M-B/NA PHOS,DI-BA 133 ML ENEMA RECTAL PRN (11:39)
[2020-03-25] MEDS ORDERED: traMADol 50 MG TAB PO PRN (11:39)
[2020-03-25] MEDS ORDERED: bisacodyL 10 MG SUPP RECTAL PRN (11:39)
[2020-03-25] MEDS: ROPIVACAINE 246.25 MG, EPINEPHrine 0.5 MG, KETOROLAC 30 MG, cloNIDine HCL/PF 80 MCG, WA... MISCELLANE ONE ×10 (11:41→12:45)
[2020-03-25] MEDS ORDERED: ROPIVACAINE 0.2%-NS ON-Q PUMP 1,090 MG, EMPTY PAIN BALL 1 EACH MISCELLANE PRN (11:44)
--- NOTE | 2020-03-25 11:44 | P.ANPRN ---
Procedure Note - Anesthesia - Nerve Block Performed Left Adductor Canal Infusion Time Out Performed: Yes Date of Procedure: 03/25/20 Procedure Start Time: : Procedure Stop Time: :32 Location of Patient: PreOp Indication: Requested by Surgeon Specifically requested for management of pain by DrSymone: Jelani Liriano Sedation Type: Sedate with meaningful contact maintained Preparation: Sterile Prep, Sterile Dressing Position: Supine Catheter: Indwelling Needle Types: Pajunk Needle Gauge: 20 Ultrasound used to visualize needle placement: Yes Ultrasound used to observe medication spread: Yes Injectate: 0.5% Ropivacaine (see comment for volume) (20 ml) Blood Aspirated: No Pain Paresthesia on Injection Noted: No Resistance on Injection: Normal Image Stored and Saved: Yes Events: Uneventful and Well Tolerated
[2020-03-25] MEDS ORDERED: TRANEXAMIC ACID 1,000 MG/10 ML VIAL ONE (11:45)
[2020-03-25] MEDS ORDERED: SODIUM CHLORIDE 0.9% 100 ML BAG ONE (11:45)
[2020-03-25] MEDS ORDERED: MIDAZOLAM 2 MG/2 ML VIAL ONE (11:45)
[2020-03-25] MEDS ORDERED: ePHEDrine SULFATE/0.9% NACL/PF 50 MG/5 ML SYRINGE IV ONE (11:45)
[2020-03-25] MEDS ORDERED: fentaNYL (PF) 50 MCG/ML 2 ML AMP ONE (11:45)
[2020-03-25] MEDS ORDERED: ceFAZolin 3,000 MG in SODIUM CHLORIDE 0.9% IRRIGATIO 3,000 ML IRRIGATION ONE (11:49)
--- NOTE | 2020-03-25 14:07 | XR ---
EXAMINATION TYPE: XR knee limited LT DATE OF EXAM: 03/25/2020 CLINICAL HISTORY: Left knee pain and arthritis status post total knee replacement. TECHNIQUE: Portable AP and crosstable lateral views of the left knee are obtained immediately postop eratively. COMPARISON: Left knee x-ray November 16, 2018 FINDINGS: The cahto osseous structures are demineralized. Metallic hardware from total left knee art hroplasty is seen and appears satisfactory in alignment and position. There is evidence of recent daniels rgery with diffuse subcutaneous gas and soft tissue swelling noted. Posterior arterial vascular calci fication redemonstrated. IMPRESSION: METALLIC HARDWARE FROM TOTAL LEFT KNEE ARTHROPLASTY IS SATISFACTORY IN ALIGNMENT.
--- NOTE | 2020-03-25 19:24 | OP ---
OPERATIVE REPORT DATE OF PROCEDURE: 03/25/2020. SURGEON: Jelani Liriano MD. CHARGE POSTER: Niles ODONNELL. PREOPERATIVE DIAGNOSIS: Left knee osteoarthrosis. POSTOPERATIVE DIAGNOSIS: Left knee osteoarthrosis. OPERATION PERFORMED: Left total knee arthroplasty. ANESTHESIA: Spinal with sedation. ESTIMATED BLOOD LOSS: 100 mL. TOURNIQUET: Tourniquet time was 40 minutes at 250 mmHg. COMPLICATIONS: None apparent. DRAINS: None. DISPOSITION: Postanesthesia care unit. INDICATIONS: Giovanna is a 80-year-old female with longstanding history of left knee pain. History and physical examination are consist with advanced left knee osteoarthrosis. She has been through significant nonoperative management up to this point. Further treatment options were discussed and she has decided to go forward with left total knee arthroplasty. The risks of procedure were discussed with her in detail. These risks include, but are not limited to risk of infection, nerve damage, bleeding, pain, and a small risk of deep vein thrombosis which could lead to fatal pulmonary embolism. There is also risk of loosening implant which could require revision operation. The patient understands these risks. All of her questions were answered to her satisfaction. Appropriate informed consent was obtained. DESCRIPTION OF THE PROCEDURE: The patient identified in the preoperative holding area. Surgical site was marked by both the patient and myself. She was given 2 g of Ancef IV for prophylactic purposes. She was then transferred to the operative suite. She was placed supine on the operative table. Spinal anesthetic was then administered and dosed per the anesthesia without apparent complication. Examination under anesthesia was then performed. The patient was 2-3 degrees shy of full extension. She had 100 degrees of flexion and the medial collateral ligament, lateral collateral ligament, posterior cruciate ligaments were stable. Tourniquet was then placed high on the left upper thigh well-padded in preparation for surgery. The patient's left lower extremity was then prepped and draped in usual sterile fashion. Standard surgical pause undertaken to ensure that we were operating the correct site and that appropriate preop antibiotics were given. All staff were in agreement and we proceeded. The outlines of the patella marked surgical pen. A planned 12 cm vertical incision centered over the patella was marked with a surgical pen. Upper leg was exsanguinated with an Esmarch dressing. The knee was then flexed and tourniquet inflated to 250 mmHg. The total tourniquet time for the procedure was 40 minutes. Incision was then made with a 10 blade scalpel. Dissection was carried down sharply overlying fascia. Great care was taken to minimize the skin flaps. The knee was then exposed using a standard medial parapatellar approach. A small cuff of quadriceps tendon was then left for suturing. She was in quite a bit of varus preoperatively. A standard medial release was then made for this. The superficial medial collateral ligament dissected off the bone around the posterior aspect of the proximal tibia. The medial meniscus was then excised as well. The lateral meniscus was also released anteriorly. The leg was then externally rotated. The patella was everted. The knee was flexed. The retractors then placed to protect the collateral ligaments. I then proceeded to remove the infrapatellar fat pad. This was excised sharply, tangentially with fibers of the patellar tendon. I then proceeded to remove the peripheral osteophytes. This was done with a rongeur. I then proceeded with the distal femoral resection. She did have near full extension. A planned 9 mm resection was then done. The femoral canal was then entered in midline in the femur approximately 10 mm anterior to the origin of the posterior cruciate ligament. The danilo was then advanced on the center of the femur and placed intramedullary. Based on the preoperative radiographs, the angle between the anatomic and mechanical axis of the femur was approximately 4-5 degrees. The valgus angle of this femoral cutting guide was then set at 4 degrees for the left knee. The distal femoral cutting guide was then advanced over the intramedullary danilo. This was seated firmly against the femur. I then as mentioned planned to take 9 mm off the distal femur. The cutting block was then secured onto the femur with pins. The jig was then removed. The distal femoral cut was made through the slot of the block. The pins then removed. Dital femoral cutting block was removed. The accuracy of this femoral cuts was checked with 2 flat bars. I then proceeded to femoral sizing. Posterior referencing sizing guide was held firmly against the resected distal surface of the femur. The posterior condyles were resting on the posterior plane of the guide. The sizing stylus was then placed on the anterior femur. The size was measured as a size 9. I then assessed for femoral rotation. Plan was for 3 degrees of external rotation. Three degrees of external rotation was placed onto the jig. These holes were then marked. I then confirmed the rotation by 3 separate methods. This was done using epicondylar axis as well as Whitesides line and posterior referencing. It was deemed that the external rotation was proper. I then went forward with placing the femoral cutting block. This was placed over the previously placed pin holes. The Doug wing was then placed on the anterior slots to ensure that we would not notch the anterior femur with the anterior femoral cut. I then proceed with the anterior femoral cut. This was flush with the anterior cortex of the femur. The posterior cuts were then made followed by the anterior chamfer cut, then the posterior chamfer cut. The cutting block was then removed. Throughout the resection, the collateral ligaments were protected with retractors. I then placed a trial size 9 femur slightly wide, but the narrow fit very nice medial-lateral and fit flush with the distal end of the femur. The drill holes were then made. I then proceeded with the tibial cut. I planned for a cruciate-retaining knee. The guide was placed and set for varus valgus and for slope. The height was set for approximate 2 mm resection from the medial tibial plateau which was the lower side. I was happy with the alignment and the amount of resection. The cutting block was then pinned to the proximal tibia. The alignment danilo was removed. The proximal tibia was resected with a reciprocating saw. Again this was done with retractors protecting the collateral ligaments as well as the posterior cruciate ligament. I then proceeded to evaluate the flexion extension gaps. A 10 mm block was then placed. The flexion-extension gaps were equal. I then proceed with resection of posterior osteophytes. She had very minimal posterior osteophytes. This was done using a curved osteotome. This was resected the posterior osteophytes and posterior capsule stripping was done off the posterior aspect of the femur at this time. The osteophytes were then removed. I then proceed with resection of the patella. The thickness of the patella was measured using the caliper. The thickness was 24 mm. The thickness of the anticipated patellar dome was taken into account. Resection was then performed and confirmed to be equal in 4 quadrants using a caliper. Approximately 14 mm of bone remained after resection. A 32 x 8.5 mm standard patellar trial was then placed. The holes drilled. The trial was then placed. I then proceeded with sizing the tibial plate. A size 9 narrow tibial plate fit very nicely. I then placed the trial femur of the tibial tray and the patellar button. A 10 mm trial insert was also placed. The components fit very nicely. She had full extension and flexion. The extension and flexion gaps were equal and stable to both varus and valgus stress. The patella tracked appropriately. The tibial tray rotation was marked with a Bovie. This was externally rotated properly. I then proceed with tibial preparation. First, drilled femoral holes, removed femoral component. The tibial tray was then set for proper external rotation as well as mediolateral placement onto the tibia. It was then pinned into place. I then proceed with punching the keel. I then decided to proceed with cementing of all of our components. The knee was thoroughly irrigated with sterile saline solution via pulse lavage. The lateral geniculate artery was identified and cauterized. All blood was removed from the bone of the tibia femur and patella with pulse lavage. I then proceed with cementing. Two packs of antibiotic bone cement prepared on the back table by the surgical corsetier. I then proceed with cementing the tibia first. The cement was impacted into the keel as well as deeply seated in the bone. A second coat of cement was then placed. The tibia was then impacted into place. Excess cement was removed with August's and Joker's. I then proceed with cementing of the femoral component. Femoral component was also cemented using standard technique. Excess cement was removed. A 10 mm trial insert was then placed into the knee. It was brought into full extension with a constant axial load placed until the cement had hardened. The patellar component was then cemented. This was held firmly with a compressive device until the cement had dried. When the cement had dried, the knee was taken out of extension. All excess cement was removed from around the prosthesis. I then trialed the knee with a 10 mm insert. The knee was stable. It came in full extension. I decided to go forward with a 10 mm cross-linked cruciate-retaining tibial insert. Polyethylene was then placed onto the tibial tray and locked into place. The knee was then reduced. The knee was again further irrigated with sterile saline solution with antibiotic added. The tourniquet was then deflated. Total tourniquet time for the procedure was 40 minutes at 250 mmHg. Final components were Joceline Persona size 9 narrow cruciate-retaining femoral component, a size E tibial tray, a 10 mm medial congruent cruciate-retaining polyethylene insert and a 32 x 8.5 mm patella. I then proceeded with closure. Again, the knee was thoroughly irrigated. The quadriceps tendon and medial retinaculum were reapproximated with #2 Ethibond suture. The extensor mechanism was then closed with a running #2 Quill suture. Subcutaneous tissues were closed with 2-0 Vicryl interrupted suture. The skin was closed with a running 3-0 Quill suture. Dermabond was applied to the incision. Sterile compressive dressing was then applied. All sponge and needle counts were deemed correct prior to closure. The patient tolerated the procedure without apparent complication. She was transferred recovery room in stable condition. MMODL / IJN: [id number] /
[2020-03-25] MEDS: SERTRALINE 100 MG TAB PO SCH (20:37)
[2020-03-25] MEDS: ASPIRIN 81 MG PO SCH (20:37)
[2020-03-25] MEDS ORDERED: SENNOSIDES-DOCUSATE SODIUM 1 EACH TAB PO SCH (21:00)
[2020-03-25] MEDS ORDERED: ATORVASTATIN 40 MG TAB PO SCH (21:00)
[2020-03-25] MEDS ORDERED: traZODone HCL 100 MG TAB PO SCH (21:00)
--- NOTE | 2020-03-25 22:18 | P.CONS ---
History of Present Illness - Reason for Consult Consult date: 03/25/20 medical management Requesting physician: Jelani Liriano - Chief Complaint Left knee surgery - History of Present Illness This is a 80-year-old patient of Dr. rogers, was chronic stable medical conditions include coronary artery disease, hypertension, hyperlipidemia, gout, urinary incontinence. Patient had a coronary bypass in 2007. Has had a negative stress test by cardiology Dr. Dimitri Hinton recently. Patient has undergone knee replacement. Pain is controlled. No nausea vomiting. No chest pain or shortness breath. Did tolerate some diet. Laying in bed. Review of systems: GEN.: None EYES: None HEENT: None NECK: None RESPIRATORY: None CARDIOVASCULAR: None GASTROINTESTINAL: None GENITOURINARY: Incontinence MUSCULOSKELETAL: Joint pains LYMPHATICS: None HEMATOLOGICAL: None PSYCHIATRY: None NEUROLOGICAL: None. Past medical history to include: Coronary artery disease with bypass, hyperlipidemia, hypertension, osteoarthritis, migraines, gout, urinary incontinence Social history: . No history of smoking or alcohol. Physical examination: VITAL SIGNS: 97.7, 55, 16, 1 23 x 91, 95% on 6 L GENERAL: BMI 24.6, laying in bed, comfortable. EYES: Pupils equal. Conjunctiva normal. HEENT: External appearance of nose and ears normal, oral cavity grossly normal. NECK: JVD not raised; masses not palpable. HEART: First and second heart sounds are normal; no edema. LUNGS: Respiratory rate normal; clear to auscultation. ABDOMEN: Soft, nontender, liver spleen not palpable, no masses palpable. PSYCH: Alert and oriented x3; mood and affect normal MUSCULAR skeletal: Evidence of OA, dressing over the left knee. NEUROLOGICAL: Cranial nerves grossly intact; no facial asymmetry, power and sensation grossly intact. LYMPHATICS: No lymph nodes palpable in the axilla and neck INVESTIGATIONS, reviewed in the clinical context: None Assessment: -Left total knee arthroplasty -Coronary artery disease with history of bypass -Hyperlipidemia -Essential hypertension -Primary osteoarthritis -Chronic gout -Urinary incontinence Plan: Home medications resumed. Pain control in place. Patient is on aspirin for prophylaxis per Dr. Liriano. Care was discussed with the patient. Questions answered. Thank you Dr. Liriano Past Medical History Past Medical History: Coronary Artery Disease (CAD), Hyperlipidemia, Hypertension, Osteoarthritis (OA) Additional Past Medical History / Comment(s): migraines, GOUT, urinary incontinence History of Any Multi-Drug Resistant Organisms: None Reported Past Surgical History: Appendectomy, Back Surgery, Bladder Surgery, Cholecystectomy, Coronary Bypass/CABG, Heart Catheterization, Hysterectomy, Joint Replacement, Orthopedic Surgery, Tonsillectomy Additional Past Surgical History / Comment(s): CABG [id number], rt knee surgery, surgery ingris thumbs, ingris cataracts, 01-06-16 TOTAL RT KNEE REPLACMENT Past Anesthesia/Blood Transfusion Reactions: Motion Sickness, Postoperative Nausea & Vomiting (PONV) Additional Past Anesthesia/Blood Transfusion Reaction / Comm: HAS INNER EAR DISTURBANCE CAUSES HER DIZZINESS AT TIMES. Past Psychological History: Depression Smoking Status: Never smoker Past Alcohol Use History: None Reported Past Drug Use History: None Reported - Past Family History Mother Family Medical History: No Reported History Father History Unknown: Yes Brother(s) Family Medical History: Cancer Medications and Allergies Home Medications Medication Instructions Recorded Confirmed Type Aspirin [Adult Low Dose Aspirin EC] 81 mg PO DAILY 12/02/15 03/24/20 History Atorvastatin [Lipitor] 40 mg PO HS 12/02/15 03/24/20 History Vit A/Vit C/Vit E/Zinc/Copper 2 cap PO DAILY 12/02/15 03/24/20 History [ICAPS SOFTGEL] atenoloL [Tenormin] 25 mg PO QAM 12/02/15 03/24/20 History Ergocalciferol (Vitamin D2) 50,000 unit PO MILLS 11/23/17 03/24/20 History [Vitamin D2] lisinopriL [Zestril] 5 mg PO QAM 11/23/17 03/24/20 History Meclizine [Antivert] 25 mg PO TID PRN 11/16/18 03/24/20 History Sertraline [Zoloft] 100 mg PO BID 11/16/18 03/24/20 History Vit A/Vit C/Vit E/Zinc/Copper 1 cap PO HS 11/16/18 03/24/20 History [ICAPS SOFTGEL] traZODone HCL [Desyrel] 100 mg PO HS 11/16/18 03/24/20 History Calcium Carb/Vitamin D3/Vit K2 1 each PO BID 05/15/19 03/24/20 History [Calcium Plus Menaq7 Adult Tab] Allergies Allergy/AdvReac Type Severity Reaction Status Date / Time No Known Allergies Allergy Verified 03/25/20 10:21 Physical Exam Vitals: Vital Signs Temp Pulse Pulse Resp BP Pulse Ox 03/25/20 16:00 62 16 147/68 94 L 03/25/20 15:37 51 L 16 119/64 96 03/25/20 15:15 50 L 16 131/63 96 03/25/20 14:48 49 L 16 108/60 100 03/25/20 14:34 50 L 16 111/58 100 03/25/20 14:16 48 L 14 109/64 100 03/25/20 14:00 50 L 16 119/57 100 03/25/20 13:45 49 L 16 121/58 100 03/25/20 13:35 97.7 F 55 L 16 123/91 95 03/25/20 11:48 67 16 123/90 98 03/25/20 10:25 97.4 F L 55 L 16 145/70 97 Intake and Output 03/25/20 03/25/20 03/25/20 06:59 14:59 22:59 Intake Total 1201 Output Total 100 Balance 1101 Intake: IV 1201 Output: Estimated Blood Loss 100 Other: Weight 65 kg 65 kg
[2020-03-26] MEDS: HYDROcodone/APAP 10-325MG 1 EACH TAB PO PRN ×3 (04:10→15:14)
[2020-03-26] MEDS: LACTATED RINGERS 1,000 ML IV SCH ×2 (05:13→09:17)
--- NOTE | 2020-03-26 07:25 | P.PN ---
Progress Note - Text Progress Note Date: 03/26/20 Postoperative day # 1 status post total knee arthroplasty, under spinal anesthesia, and adductor canal catheter placed for postoperative analgesia, currently at ropivacaine 0.2% 8 mL per hour and continuous infusion, vision complaining of some pain in the posterior aspect of the knee, which is not covered with the adductor canal catheter, patient using oral pain medication for breakthrough pain. Assessment and plan= Acute postoperative pain, adductor canal catheter for pain control ,we'll continue the same management.
[2020-03-26 07:52] VITALS: RESP 16
[2020-03-26 08:06] LABS: Basophils # (A) 0.1 k/uL (0-0.2); Basophils % (A) 1 %; Eosinophils # (A) 0.1 k/uL (0-0.7); Eosinophils % (A) 1 %; HCT 33.3 % (34.0-46.0); HGB 10.9 gm/dL (11.4-16.0); Lymphocytes # (A) 2.5 k/uL (1.0-4.8); Lymphocytes % (A) 21 %; MCH 29.4 pg (25.0-35.0); MCHC 32.8 g/dL (31.0-37.0); MCV 89.7 fL (80.0-100.0); Mean Platelet Volume 7.9; Monocytes # (A) 0.8 k/uL (0-1.0); Monocytes % (A) 7 %; Neutrophils # (A) 8.6 k/uL (1.3-7.7); Neutrophils % (A) 71 %; Platelet Count 163 k/uL (150-450); RBC 3.72 m/uL (3.80-5.40); RDW 14.6 % (11.5-15.5); WBC 12.2 k/uL (3.8-10.6)
[2020-03-26] MEDS ORDERED: lisinopriL 5 MG TAB PO SCH (09:00)
[2020-03-26] MEDS ORDERED: atenoloL 25 MG TAB PO SCH (09:00)
[2020-03-26] MEDS: ASPIRIN 81 MG PO SCH (09:18)
[2020-03-26] MEDS: SERTRALINE 100 MG TAB PO SCH (09:18)
[2020-03-26] MEDS: hydrOXYzine pamoate 25 MG CAP PO PRN ×2 (10:13→15:14)
[2020-03-26] MEDS ORDERED: MULTIVITAMINS, THERA 1 EACH TAB PO SCH (12:00)
[2020-03-26 14:39] VITALS: BP 110/63; PULSE 72; TEMP 99.3
--- NOTE | 2020-03-26 19:03 | P.DS ---
Providers Expected date of discharge: 03/26/20 Attending physician: Jelani Liriano Consults: 03/25/20 11:39 Consult Physician Routine Consulting Provider: Carlyle Monsivais Consult Reason/Comments: post op medical management Do you want consulting provider notified?: Yes Primary care physician: Miguelito Rodriguez MD - Discharge Diagnosis(es) (1) Status post total left knee replacement Patient was admitted to the OR on 03/25/2020 to undergo a left total knee arthroplasty. She had failed conservative measures as an outpatient and desired to proceed with elective surgery after given informed consent. She underwent the above procedure which she tolerated well without complication. Postoperative hospital course has remained without complication. On day of discharge she is afebrile, vital signs stable, labs within acceptable ranges, tolerating by mouth meds and diet, voiding without difficulty, positive flatus, denies abdominal pain or calf pain, pain is controlled on oral pain medication and has no new complaints. Wound is benign, neurovascular status is intact, calf is soft and nontender, abdomen soft and nontender. Review of systems is negative for numbness, tingling, fever, chills, chest pain, shortness of breath, nausea, vomiting, dizziness, headaches, slurred speech or other. Status: Acute Priority: Medium Procedures: Left TKA Patient Condition at Discharge: Good Plan - Discharge Summary Discharge Rx Participant: No New Discharge Prescriptions: New Aspirin 81 mg PO BID chew Aspirin [Adult Low Dose Aspirin EC] 81 mg PO BID #60 tablet. HYDROcodone/APAP 7.5-325MG [[place] 7.5-325] 1 - 2 each PO Q6HR PRN #42 tab PRN Reason: Pain Continue Vit A/Vit C/Vit E/Zinc/Copper [ICAPS SOFTGEL] 2 cap PO DAILY Atorvastatin [Lipitor] 40 mg PO HS atenoloL [Tenormin] 25 mg PO QAM Ergocalciferol (Vitamin D2) [Vitamin D2] 50,000 unit PO MILLS Sertraline [Zoloft] 100 mg PO BID traZODone HCL [Desyrel] 100 mg PO HS Meclizine [Antivert] 25 mg PO TID PRN PRN Reason: Nausea And Vomiting Calcium Carb/Vitamin D3/Vit K2 [Calcium Plus Menaq7 Adult Tab] 1 each PO BID Changed lisinopriL [Zestril] 5 mg PO HS #0 Discontinued Aspirin [Adult Low Dose Aspirin EC] 81 mg PO DAILY Vit A/Vit C/Vit E/Zinc/Copper [ICAPS SOFTGEL] 1 cap PO HS Discharge Medication List Atorvastatin [Lipitor] 40 mg PO HS 12/02/15 [History] Vit A/Vit C/Vit E/Zinc/Copper [ICAPS SOFTGEL] 2 cap PO DAILY 12/02/15 [History] atenoloL [Tenormin] 25 mg PO QAM 12/02/15 [History] Ergocalciferol (Vitamin D2) [Vitamin D2] 50,000 unit PO MILLS 11/23/17 [History] Meclizine [Antivert] 25 mg PO TID PRN 11/16/18 [History] Sertraline [Zoloft] 100 mg PO BID 11/16/18 [History] traZODone HCL [Desyrel] 100 mg PO HS 11/16/18 [History] Calcium Carb/Vitamin D3/Vit K2 [Calcium Plus Menaq7 Adult Tab] 1 each PO BID 05/15/19 [History] Aspirin 81 mg PO BID chew 03/26/20 [Rx] Aspirin [Adult Low Dose Aspirin EC] 81 mg PO BID #60 tablet.dr 03/26/20 [Rx] HYDROcodone/APAP 7.5-325MG [[place] 7.5-325] 1 - 2 each PO Q6HR PRN #42 tab 03/26/20 [Rx] lisinopriL [Zestril] 5 mg PO HS #0 03/26/20 [Rx] Follow up Appointment(s)/Referral(s): [facility], [NON-STAFF] - As Needed Miguelito Rodriguez MD [Primary Care Provider] - 03/30/20 1:15 pm Jelani Liriano MD [STAFF PHYSICIAN] - 04/05/20 1:00 pm Patient Instructions/Handouts: *Surgery [facility] - On-Q Pain Pump Discharge Instructions, Joint Replacement Surgery (DC) Activity/Diet/Wound Care/Special Instructions: take lisionopril at night instead of daytime -0 starting tomorrow Keep wound clean and dry Take meds as directed Follow-up with Dr. Liriano in office Weight bear as tolerated May shower in 3 days if no bleeding Discharge Disposition: HOME WITH HOME HEALTH SERVICES
--- NOTE | 2020-03-26 20:38 | P.PN ---
Progress Note - Text Progress Note Date: 03/26/20 - Chief Complaint Left knee surgery - History of Present Illness This is a 80-year-old patient of Dr. rogers, was chronic stable medical conditions include coronary artery disease, hypertension, hyperlipidemia, gout, urinary incontinence. Patient had a coronary bypass in 2007. Has had a negative stress test by cardiology Dr. Nael Chavez recently. Patient has undergone knee replacement. Today-doing well. Pain control. Has been out of bed. He tolerated breakfast. No nausea vomiting. Feeling well. Patient denied any respiratory or urinary symptoms. Review of systems: Was done for constitutional, cardiovascular, GI, pulmonary. Muscular skeletal relevant finding as above Current medications reviewed in today's electronic system Physical examination: VITAL SIGNS: 98.3, 74, 16, 121/62, 92% room air GENERAL: Sitting up, comfortable EYES: Pupils equal. Conjunctiva normal. NECK: JVD not raised; masses not palpable. HEART: First and second heart sounds are normal; no edema. LUNGS: Respiratory rate normal; clear to auscultation. ABDOMEN: Soft, nontender, liver spleen not palpable, no masses palpable. PSYCH: Alert and oriented x3; mood and affect normal MUSCULAR skeletal: Evidence of OA, dressing over the left knee. INVESTIGATIONS, reviewed in the clinical context: White count 12.2 hemoglobin 10.9 platelets 163 Assessment: -Left total knee arthroplasty -Coronary artery disease with history of bypass -Hyperlipidemia -Essential hypertension -Primary osteoarthritis -Chronic gout -Urinary incontinence -Reactive leukocytosis-no clinical evidence of infection -Acute postprocedure blood loss anemia, as expected from surgery Plan: Continue current medication treatment plan. Lisinopril dosing has been moved to p.m. dosing Thank you Dr. Liriano
== END 2020-03-26 16:36 | disposition home health service (06) ==
LOC: OR 10:02 → 4SSUR 13:08 → OR 03-26 16:36
PROVIDERS: ATTEND Orthopaedic Surgery Sports Medicine
DX: M17.12 Unilateral primary osteoarthritis, left knee (principal); Z96.651 Presence of right artificial knee joint; I10 Essential (primary) hypertension; F32.9 Major depressive disorder, single episode, unspecified; E78.5 Hyperlipidemia, unspecified; I25.10 Atherosclerotic heart disease of native coronary artery without angina pectoris; M1A.9XX0 Chronic gout, unspecified, without tophus (tophi); G43.909 Migraine, unspecified, not intractable, without status migrainosus; Z90.710 Acquired absence of both cervix and uterus; Z98.890 Other specified postprocedural states; Z90.49 Acquired absence of other specified parts of digestive tract; Z79.82 Long term (current) use of aspirin; Z79.899 Other long term (current) drug therapy; Z95.1 Presence of aortocoronary bypass graft; Z98.41 Cataract extraction status, right eye; Z98.42 Cataract extraction status, left eye; Z80.9 Family history of malignant neoplasm, unspecified; Z97.3 Presence of spectacles and contact lenses
CPT/HCPCS: 97110; 97161; 64448; 76942; 85025; 88300; 73560; 27447; C1776; C1713; J2250; J0171; J3370; J1100; J0690 ×3; J2405; J3010; J1885; J2795 ×2; J0735

== ENCOUNTER → 2020-04-12 | Outpatient (CLI) | payer MEDICARE, OTHER ==
--- NOTE | 2020-04-12 11:36 | US ---
EXAMINATION TYPE: US venous doppler duplex LE LT DATE OF EXAM: 04/12/2020 11:20 AM COMPARISON: NONE CLINICAL HISTORY: 80-year-old female M25.562 PAIN LT KNEE,M17.12 PRIMARY OSTEOARTHRITIS. Post op knee surgery pain. SIDE PERFORMED: Left TECHNIQUE: The lower extremity deep venous system is examined utilizing real time linear array sonog edenilson with graded compression, doppler sonography and color-flow sonography. FINDINGS: VESSELS IMAGED: Common Femoral Vein Deep Femoral Vein Greater Saphenous Vein * Femoral Vein Popliteal Vein Small Saphenous Vein * Proximal Calf Veins (* superficial vessels) Left Leg: Negative for DVT IMPRESSION: No evidence for DVT within the left lower extremity imaged from the groin to the upper calf.
== END | disposition home or self-care (01) ==
LOC: RADUSWWP 11:03
PROVIDERS: ATTEND Orthopaedic Surgery Sports Medicine
DX: I80.02 Phlebitis and thrombophlebitis of superficial vessels of left lower extremity (principal); M79.662 Pain in left lower leg; M17.12 Unilateral primary osteoarthritis, left knee; Z96.652 Presence of left artificial knee joint

== ENCOUNTER 2020-04-25 09:58 | Emergency (ER) | payer MEDICARE, OTHER ==
--- NOTE | 2020-04-25 10:39 | ED ---
General Adult HPI - General Chief complaint: Fever Stated complaint: Weakness/COVID+ Time Seen by Provider: 04/25/20 10:03 Source: patient, EMS Mode of arrival: EMS Limitations: no limitations - History of Present Illness Initial comments: Patient is a 80-year-old female presenting to the emergency department via EMS after her daughter called to have patient "checked out." Patient was diagnosed with Covid 4 days ago, she also recently lost her to call red a few days ago as well. Patient states she just feels emotionally drained. She denies any specific complaints at this time, no chest pain, no shortness of breath. She does admit to some intermittent fevers but states she did not have a fever today. She denies any abdominal pain, no nausea or vomiting, no diarrhea. Patient states she has been eating and drinking. She states she actually feels a little bit better today. She denies feeling weak. She states that she is simply emotionally drained and just wants to go back home. She states her daughter was really concerned about her and wanted her to be checked out. Patient has no further complaints at this time. Upon arrival to the ER, her vital signs are normal, afebrile. - Related Data Home Medications Medication Instructions Recorded Confirmed Atorvastatin [Lipitor] 40 mg PO HS 12/02/15 03/24/20 Vit A/Vit C/Vit E/Zinc/Copper 2 cap PO DAILY 12/02/15 03/24/20 [ICAPS SOFTGEL] atenoloL [Tenormin] 25 mg PO QAM 12/02/15 03/24/20 Ergocalciferol (Vitamin D2) 50,000 unit PO MILLS 11/23/17 03/24/20 [Vitamin D2] Meclizine [Antivert] 25 mg PO TID PRN 11/16/18 03/24/20 Sertraline [Zoloft] 100 mg PO BID 11/16/18 03/24/20 traZODone HCL [Desyrel] 100 mg PO HS 11/16/18 03/24/20 Calcium Carb/Vitamin D3/Vit K2 1 each PO BID 05/15/19 03/24/20 [Calcium Plus Menaq7 Adult Tab] Previous Rx's Medication Instructions Recorded Aspirin 81 mg PO BID chew 03/26/20 Aspirin [Adult Low Dose Aspirin EC] 81 mg PO BID #60 tablet. 03/26/20 HYDROcodone/APAP 7.5-325MG [[place] 1 - 2 each PO Q6HR PRN #42 tab 03/26/20 7.5-325] lisinopriL [Zestril] 5 mg PO HS #0 03/26/20 Allergies Allergy/AdvReac Type Severity Reaction Status Date / Time No Known Allergies Allergy Verified 03/25/20 10:21 Review of Systems ROS Statement: Those systems with pertinent positive or pertinent negative responses have been documented in the HPI. ROS Other: All systems not noted in ROS Statement are negative. Past Medical History Past Medical History: Coronary Artery Disease (CAD), Hyperlipidemia, Hypertensi on, Osteoarthritis (OA) Additional Past Medical History / Comment(s): migraines, GOUT, urinary incontinence History of Any Multi-Drug Resistant Organisms: None Reported Past Surgical History: Appendectomy, Back Surgery, Bladder Surgery, Cholecystectomy, Coronary Bypass/CABG, Heart Catheterization, Hysterectomy, Joint Replacement, Orthopedic Surgery, Tonsillectomy Additional Past Surgical History / Comment(s): CABG [id number], rt knee surgery, surgery ingris thumbs, ingris cataracts, 01-06-16 TOTAL RT KNEE REPLACMENT Past Anesthesia/Blood Transfusion Reactions: Motion Sickness, Postoperative Nausea & Vomiting (PONV) Additional Past Anesthesia/Blood Transfusion Reaction / Comment(s): HAS INNER EAR DISTURBANCE CAUSES HER DIZZINESS AT TIMES. Past Psychological History: Depression Smoking Status: Never smoker Past Alcohol Use History: None Reported Past Drug Use History: None Reported - Past Family History Mother Family Medical History: No Reported History Father History Unknown: Yes Brother(s) Family Medical History: Cancer General Exam - General Exam Comments Initial Comments: GENERAL: Patient is well-developed and well-nourished. Patient is nontoxic and in no acute distress. HEAD: Atraumatic, normocephalic. EYES: Pupils equal round and reactive to light, extraocular movements intact, sclera anicteric, conjunctiva are normal. Eyelids were unremarkable. ENT: TMs normal, nares patent, oropharynx clear without exudates. Moist mucous membranes. NECK: Normal range of motion, supple without lymphadenopathy or JVD. LUNGS: Unlabored respirations. Breath sounds clear to auscultation bilaterally and equal. No wheezes rales or rhonchi. HEART: Regular rate and rhythm without murmurs, rubs or gallops. ABDOMEN: Soft, nontender, normoactive bowel sounds. No guarding, no rebound. No masses appreciated. : Deferred MUSCULOSKELETAL: Normal extremities with adequate strength and normal range of motion, no pitting or edema. No clubbing or cyanosis. NEUROLOGICAL: Patient is alert and oriented x 3. Motor and sensory are also intact. Cranial nerves II through XII grossly intact. Symmetrical smile. Normal speech, normal gait. PSYCH: Normal mood, normal affect. SKIN: Warm, Dry, normal turgor, no rashes or lesions noted. Limitations: no limitations Course Vital Signs 04/25/20 04/25/20 10:02 10:51 Temperature 98.1 F Pulse Rate 60 63 Respiratory 18 16 Rate Blood Pressure 131/85 110/96 O2 Sat by Pulse 98 98 Oximetry Medical Decision Making - Medical Decision Making Patient is a 80-year-old female, presenting because her daughter wanted her to be checked out. Patient tested positive for Covid 4 days ago, she also lost her to Covid. Patient states she is just emotionally drained but today has no specific complaints. She is afebrile upon arrival, rest of her vital signs are completely normal. Her exam was unremarkable. Patient is drinking water in the ER. I did order chest x-ray, no acute process at this time. Patient has been resting comfortably in the ER. I discussed with patient that she is stable for discharge, she can continue with her already prescribed medications, and she can follow up with her PCP. Patient is in agreement with this plan of care. Return parameters were discussed with the patient and she verbalized understanding. Case discussed with Dr. Mcallister. Disposition Clinical Impression: COVID-19 Disposition: HOME SELF-CARE Condition: Stable Instructions (If sedation given, give patient instructions): Upper Respiratory Infection (ED) Additional Instructions: Please return to the Emergency Department if symptoms worsen or any other concerns. Continue with the already prescribed medications, drink plenty of water, rest. Follow-up with your regular doctor. Is patient prescribed a controlled substance at d/c from ED?: No Referrals: Miguelito Rodriguez MD [Primary Care Provider] - 1-2 days
[2020-04-25 10:52] VITALS: BP 110/96; PULSE 63; RESP 16
--- NOTE | 2020-04-25 10:54 | XR ---
EXAMINATION TYPE: XR chest 1V DATE OF EXAM: 04/25/2020 COMPARISON: 01/29/2019 INDICATION: Covid x4 days weakness TECHNIQUE: Single frontal view of the chest is obtained. FINDINGS: The heart size is normal. The pulmonary vasculature is normal. The lungs are clear. IMPRESSION: 1. No acute pulmonary process.
[2020-04-25 11:23] VITALS: TEMP 98.9
== END 2020-04-25 11:23 | disposition home or self-care (01) ==
LOC: EC 09:58
DX: U07.1 COVID-19 (principal); F32.9 Major depressive disorder, single episode, unspecified; E78.5 Hyperlipidemia, unspecified; I10 Essential (primary) hypertension; Z79.899 Other long term (current) drug therapy; Z95.5 Presence of coronary angioplasty implant and graft; Z95.1 Presence of aortocoronary bypass graft; Z90.49 Acquired absence of other specified parts of digestive tract; Z98.42 Cataract extraction status, left eye; Z98.41 Cataract extraction status, right eye; Z96.651 Presence of right artificial knee joint; Z90.710 Acquired absence of both cervix and uterus
CPT/HCPCS: 71045; 99283

== ENCOUNTER → 2020-10-22 | Outpatient (CLI) | payer MEDICARE, OTHER ==
--- NOTE | 2020-10-23 04:44 | MR ---
EXAMINATION TYPE: MR cervical spine wo con DATE OF EXAM: 10/22/2020 COMPARISON: None HISTORY: Neck and right shoulder pain, headaches. Multiplanar multiecho imaging of the cervical spine was performed without contrast. Cervical vertebra have normal alignment. There is degenerative disc space narrowing in the cervical s pine from C3 to T1. There is posterior endplate spur formation and small disc bulging from C3 to C7. Spinal canal measures 6.7 mm at C4-5. Canal measures 7 mm at C5-6. Canal measures 7 mm at C6-7. There is no evidence of edema in the cervical spinal cord. The brainstem is intact. The skull base is inta ct. There is multilevel hypertrophic cervical facet arthropathy. I see no focal bone destruction. IMPRESSION: Moderate multilevel spondylotic changes. Mild relative spinal stenosis at several levels as above. Di sc herniation posteriorly at C4-5 is the largest.
== END | disposition home or self-care (01) ==
LOC: RADMRIMAIN 19:39
PROVIDERS: ATTEND Orthopaedic Surgery Orthopaedic Surgery of the Spine
DX: M47.812 Spondylosis without myelopathy or radiculopathy, cervical region (principal); M50.221 Other cervical disc displacement at C4-C5 level; M48.02 Spinal stenosis, cervical region
CPT/HCPCS: 72141

== ENCOUNTER 2021-08-05 19:32 | Emergency (ER) | payer MEDICARE, OTHER ==
[2021-08-05] MEDS ORDERED: DIPH,PERTUS(ACELL)TETVAC-LF 0.5 ML VIAL IM ONE (21:31)
[2021-08-05] MEDS ORDERED: AMOXIC-POT CLAV 875-125MG 1 EACH TAB PO STA (21:39)
[2021-08-05] MEDS ORDERED: BACITRACIN OINT 1 EACH PACKET TOPICAL ONE (21:41)
--- NOTE | 2021-08-05 22:09 | XR ---
EXAMINATION TYPE: XR hand complete RT DATE OF EXAM: 08/05/2021 9:56 PM INDICATION: Patient age:Female; 81 years old; Reason for study: Injuries/dog bite; COMPARISON: None TECHNIQUE: 3 views of the right hand were obtained. FINDINGS: Normal alignment of the visualized joints. No acute osseous pathology is identified. No e vidence of soft tissue swelling. No evidence of radiopaque foreign body. Mild degenerative changes sc attered throughout the interphalangeal joints. IMPRESSION: 1. No acute osseous pathology 2. Mild scattered osteophytic changes throughout the joints.
[2021-08-05 22:20] VITALS: BP 165/85; PULSE 67; RESP 22; TEMP 97.4
--- NOTE | 2021-08-05 22:36 | ED ---
Wound/Laceration HPI - General Chief Complaint: Wound/Laceration Stated Complaint: Laceration on right hand Time Seen by Provider: 08/05/21 21:30 Source: patient Mode of arrival: ambulatory - History of Present Illness Initial Comments: This is a pleasant, [id number] 81-year-old female who presents to the emergency department after sustaining a dog bite to her right hand. This was a superficial wound from her own dog. She states the dog is up-to-date on immunizations and can be monitored. She states she was reaching for a toy at the same time the dog was going for. He ended up just clipping her hand. She denies any significant pain. No functional impairment. No numbness or tingling. No history of immunosuppression. Tetanus status is unknown. No other injuries. No headache, no fever or chills, no changes in vision or hearing, no sore throat or difficulty with speech, no neck pain, no chest pain or shortness of breath, no abdominal pain, no nausea or vomiting, no changes in urination or bowel movements, no numbness or tingling, no skin rashes or lesions. - Related Data Home Medications Medication Instructions Recorded Confirmed Atorvastatin [Lipitor] 40 mg PO HS 12/02/15 03/24/20 Vit A/Vit C/Vit E/Zinc/Copper 2 cap PO DAILY 12/02/15 03/24/20 [ICAPS SOFTGEL] atenoloL [Tenormin] 25 mg PO QAM 12/02/15 03/24/20 Ergocalciferol (Vitamin D2) 50,000 unit PO MILLS 11/23/17 03/24/20 [Vitamin D2] Meclizine [Antivert] 25 mg PO TID PRN 11/16/18 03/24/20 Sertraline [Zoloft] 100 mg PO BID 11/16/18 03/24/20 traZODone HCL [Desyrel] 100 mg PO HS 11/16/18 03/24/20 Calcium Carb/Vitamin D3/Vit K2 1 each PO BID 05/15/19 03/24/20 [Calcium Plus Menaq7 Adult Tab] Previous Rx's Medication Instructions Recorded Aspirin 81 mg PO BID chew 03/26/20 Aspirin [Adult Low Dose Aspirin EC] 81 mg PO BID #60 tablet. 03/26/20 HYDROcodone/APAP 7.5-325MG [[place] 1 - 2 each PO Q6HR PRN #42 tab 03/26/20 7.5-325] lisinopriL [Zestril] 5 mg PO HS #0 03/26/20 Amoxicillin/Potassium Clav 1 each PO Q12HR #14 tab 08/05/21 [Augmentin 875-125 Tablet] Allergies Allergy/AdvReac Type Severity Reaction Status Date / Time No Known Allergies Allergy Verified 08/05/21 20:24 Review of Systems ROS Statement: Those systems with pertinent positive or pertinent negative responses have been documented in the HPI. ROS Other: All systems not noted in ROS Statement are negative. Past Medical History Past Medical History: Coronary Artery Disease (CAD), Hyperlipidemia, Hypertension, Osteoarthritis (OA) Additional Past Medical History / Comment(s): migraines, GOUT, urinary incontinence History of Any Multi-Drug Resistant Organisms: None Reported Past Surgical History: Appendectomy, Back Surgery, Bladder Surgery, Cholecystectomy, Coronary Bypass/CABG, Heart Catheterization, Hysterectomy, Joint Replacement, Orthopedic Surgery, Tonsillectomy Additional Past Surgical History / Comment(s): CABG [id number], rt knee surgery, surgery ingris thumbs, ingris cataracts, 01-06-16 TOTAL RT KNEE REPLACMENT Past Anesthesia/Blood Transfusion Reactions: Motion Sickness, Postoperative Nausea & Vomiting (PONV) Additional Past Anesthesia/Blood Transfusion Reaction / Comment(s): HAS INNER EAR DISTURBANCE CAUSES HER DIZZINESS AT TIMES. Past Psychological History: Depression Smoking Status: Never smoker Past Alcohol Use History: None Reported Past Drug Use History: None Reported - Past Family History Mother Family Medical History: No Reported History Father History Unknown: Yes Brother(s) Family Medical History: Cancer General Exam - General Exam Comments Initial Comments: Nontoxic appearing female in no distress General appearance: alert, in no apparent distress Head exam: Present: atraumatic, normocephalic, normal inspection Eye exam: Present: normal appearance, PERRL, EOMI. Absent: scleral icterus, conjunctival injection, periorbital swelling ENT exam: Present: normal exam, mucous membranes moist Neck exam: Present: normal inspection. Absent: tenderness, meningismus, lymphadenopathy Respiratory exam: Present: normal lung sounds bilaterally. Absent: respiratory distress, wheezes, rales, rhonchi, stridor Cardiovascular Exam: Present: regular rate, normal rhythm, normal heart sounds. Absent: systolic murmur, diastolic murmur, rubs, gallop, clicks GI/Abdominal exam: Present: soft, normal bowel sounds. Absent: distended, tenderness, guarding, rebound, rigid Extremities exam: Present: full ROM, normal capillary refill, calf tenderness. Absent: normal inspection (Superficial wounds to right hand. Does involve the subcutaneous tissue on the flexor aspect. No tendon involvement. Full strength in all planes. Full tendon function. Sensory status intact no foreign body. No other injuries. No evidence of infectious process), tenderness Back exam: Present: normal inspection Neurological exam: Present: alert, oriented X3, CN II-XII intact, other (Sensation intact). Absent: motor sensory deficit Psychiatric exam: Present: normal affect, normal mood Skin exam: Present: warm, dry, intact, normal color. Absent: rash Course Vital Signs 08/05/21 08/05/21 20:19 21:23 Temperature 98.6 F 97.4 F L Pulse Rate 74 67 Respiratory 16 22 Rate Blood Pressure 166/94 165/85 O2 Sat by Pulse 98 98 Oximetry Medical Decision Making - Medical Decision Making Patient's superficial wounds with no evidence of foreign body or osseous abnormality on x-ray. There was to abrasions and one puncture wound. This will be left open for drainage. Wounds were irrigated thoroughly. Sterile dressing applied. Antibiotic ointment applied. Patient given Augmentin. Tetanus was updated. We'll keep the patient on Augmentin twice daily for the next 7 days. Some wound care. Counseled on follow-up.Follow-up Sunday with her regular doctor for wound check. Patient was told to return to the ER for any signs or symptoms worsen. Told to return immediately if any other problems arise. All questions answered. Treatment plan discussed. Patient in agreement Every effort has been made to ensure accuracy of this dictation. However, due to the limitations of electronic medical records and dictation devices, errors in charting still occur. - Radiology Data Radiology results: report reviewed (No foreign body, no osseous abnormality), image reviewed Disposition Clinical Impression: Dog bite of left hand Disposition: HOME SELF-CARE Condition: Stable Instructions (If sedation given, give patient instructions): Animal Bite (ED) Additional Instructions: Wash the wound daily with warm soap and water. Apply antibiotic ointment as directed. Take the antibiotics as directed. Follow-up with your regular physician on Sunday for a wound check. Follow-up with your regular physician as directed. Return to the ER immediately if any symptoms worsen, new symptoms arise, or any other problems develop. Prescriptions: Amoxicillin/Potassium Clav [Augmentin 875-125 Tablet] 1 each PO Q12HR #14 tab Is patient prescribed a controlled substance at d/c from ED?: No Referrals: Miguelito Rodriguez MD [Primary Care Provider] - 08/08/21 Time of Disposition: 22:35
== END 2021-08-05 22:40 | disposition home or self-care (01) ==
LOC: EC 19:32
DX: S61.451A Open bite of right hand, initial encounter (principal); E78.5 Hyperlipidemia, unspecified; M19.90 Unspecified osteoarthritis, unspecified site; F32.A Depression, unspecified; Z79.82 Long term (current) use of aspirin; Z79.899 Other long term (current) drug therapy; W54.0XXA Bitten by dog, initial encounter
CPT/HCPCS: 90471; 90715; 99283

== ENCOUNTER → 2022-01-06 | Outpatient (CLI) | payer MEDICARE, OTHER ==
[2022-01-06 18:20] LABS: HCT 40.8 % (37.2-46.3); HGB 12.9 g/dL (12.0-15.0); MCH 29.4 pg (27.0-32.0); MCHC 31.6 g/dL (32.0-37.0); MCV 92.9 fL (80.0-97.0); Mean Platelet Volume 11.1 fL (9.5-12.2); NRBC Per 100 WBC 0 /100 WBCS (0.0-0.0); Platelet Count 258 X 10*3/uL (140-440); RBC 4.39 X 10*6/uL (4.10-5.20); RDW 13.7 % (11.5-14.5); WBC 6.98 X 10*3/uL (4.50-10.00)
[2022-01-06 18:33] LABS: ALT 7 U/L (8-44); AST 26 U/L (13-35); African American GFR (CKD) 64.5 (60.0-200.0); Albumin 3.9 g/dL (3.8-4.9); Albumin/Globulin Ratio 1.44 (1.60-3.17); Alkaline Phosphatase 101 U/L (41-126); BUN/Creat Ratio 13.22 Ratio (12.00-20.00); Blood Urea Nitrogen 12.8 mg/dL (9.0-27.0); Calcium 9.6 mg/dL (8.7-10.3); Carbon Dioxide 22.1 mmol/L (20.0-27.5); Chloride 110 mmol/L (96-109); Chol/HDL Ratio 1.75 Ratio; Globulin 2.7 g/dL (1.6-3.3); Glucose 89 mg/dL (70-110); LDL Cholesterol,Calculated 31.9 mg/dL (0.0-131.0); Non-African American GFR(CKD) 55.7 (60.0-200.0); Potassium 3.6 mmol/L (3.5-5.5); Sodium 144 mmol/L (135-145); Total Protein 6.6 g/dL (6.2-8.2); VLDL Calculation 17.98 mg/dL (5.00-40.00)
== END | disposition home or self-care (01) ==
LOC: LABWHC1 10:54
PROVIDERS: ATTEND Internal Medicine Clinical Cardiac Electrophysiology
DX: I10 Essential (primary) hypertension (principal); I25.10 Atherosclerotic heart disease of native coronary artery without angina pectoris; Z95.1 Presence of aortocoronary bypass graft
CPT/HCPCS: 36415; 80053; 80061; 84443; 85027

== ENCOUNTER 2022-02-23 12:34 | Inpatient (IN) | payer MEDICARE, OTHER ==
[2022-02-23] MEDS ORDERED: SODIUM CHLORIDE 0.9% 500 ML 500 ML IV STA (13:21)
--- NOTE | 2022-02-23 13:25 | ED ---
General Adult HPI - General Chief complaint: Fall Stated complaint: Fall Time Seen by Provider: 02/23/22 12:49 Source: patient, EMS Mode of arrival: EMS Limitations: physical limitation - History of Present Illness Initial comments: Dictation was produced using [employer] dictation software. please excuse any grammatical, word or spelling errors. Chief Complaint: 82-year-old female presents with knee pain after fall History of Present Illness: Patient is an 82-year-old female presents with knee pain after fall. Patient states that this current approximately 1-2 hours prior to arrival she stepped on wet floor when she slipped and her legs slid under a light on her left knee. Patient's history of knee replacement on the left. De nies any loss of consciousness. She states the pain is to her lower thigh and knee area. Denies any numbness and paresthesias to the left leg patient is brought in by EMS. Denies any neck regulation medications. The ROS documented in this emergency department record has been reviewed and confirmed by me. Those systems with pertinent positive or negative responses have been documented in the HPI. All other systems are other negative and/or noncontributory. PHYSICAL EXAM: General Impression: Alert and oriented x3, not in acute distress HEENT: Normocephalic atraumatic, extra-ocular movements intact, pupils equal and reactive to light bilaterally, mucous membranes moist. Cardiovascular: Heart regular rate and rhythm Chest: Able to complete full sentences, no retractions, no tachypnea Abdomen: abdomen soft, non-tender, non-distended, no organomegaly Musculoskeletal: Pulses present and equal in all extremities, no peripheral edema Left lower extremity: Gross deformity at the left knee, neurovascularly intact to the left lower extremity Motor: no focal deficits noted Neurological: CN II-XII grossly intact, no focal motor or sensory deficits noted Skin: Intact with no visualized rashes Psych: Normal affect and mood ED course: 82-year-old female presents emergency Department with knee pain after fall. Vital signs upon arrival are within acceptable limits. Patient initially offered IV analgesics however she refused. Computed tomography scan of the head and C-spine shows no acute processes. Chest x-ray and pelvis x-ray is unremarkable. Femur and knee x-ray shows periprosthetic comminuted mildly displaced distal femur fracture. Case was discussed with Dr. Jelani Liriano who performed the total knee replacement. He reviewed the films and requested patient have a CT leong that should be admitted with medicine consultation. Patient reevaluated bedside at 250. Vitamin stable medical condition. She is agreeable with disposition plan. - Related Data Home Medications Medication Instructions Recorded Confirmed Atorvastatin [Lipitor] 40 mg PO HS 12/02/15 03/24/20 Vit A/Vit C/Vit E/Zinc/Copper 2 cap PO DAILY 12/02/15 03/24/20 [ICAPS SOFTGEL] atenoloL [Tenormin] 25 mg PO QAM 12/02/15 03/24/20 Ergocalciferol (Vitamin D2) 50,000 unit PO MILLS 11/23/17 03/24/20 [Vitamin D2] Meclizine [Antivert] 25 mg PO TID PRN 11/16/18 03/24/20 Sertraline [Zoloft] 100 mg PO BID 11/16/18 03/24/20 traZODone HCL [Desyrel] 100 mg PO HS 11/16/18 03/24/20 Calcium Carb/Vitamin D3/Vit K2 1 each PO BID 05/15/19 03/24/20 [Calcium Plus Menaq7 Adult Tab] Previous Rx's Medication Instructions Recorded Aspirin 81 mg PO BID chew 03/26/20 Aspirin [Adult Low Dose Aspirin EC] 81 mg PO BID #60 tablet. 03/26/20 HYDROcodone/APAP 7.5-325MG [[place] 1 - 2 each PO Q6HR PRN #42 tab 03/26/20 7.5-325] lisinopriL [Zestril] 5 mg PO HS #0 03/26/20 Amoxicillin/Potassium Clav 1 each PO Q12HR #14 tab 08/05/21 [Augmentin 875-125 Tablet] Allergies Allergy/AdvReac Type Severity Reaction Status Date / Time No Known Allergies Allergy Verified 02/23/22 12:43 Review of Systems ROS Statement: Those systems with pertinent positive or pertinent negative responses have been documented in the HPI. ROS Other: All systems not noted in ROS Statement are negative. Past Medical History Past Medical History: Coronary Artery Disease (CAD), Hyperlipidemia, Hypertension, Osteoarthritis (OA) Additional Past Medical History / Comment(s): migraines, GOUT, urinary incontinence History of Any Multi-Drug Resistant Organisms: None Reported Past Surgical History: Appendectomy, Back Surgery, Bladder Surgery, Cholecystectomy, Coronary Bypass/CABG, Heart Catheterization, Hysterectomy, Joint Replacement, Orthopedic Surgery, Tonsillectomy Additional Past Surgical History / Comment(s): CABG [id number], rt knee surgery, surgery ingris thumbs, ingris cataracts, 01-06-16 TOTAL RT KNEE REPLACMENT Past Anesthesia/Blood Transfusion Reactions: Motion Sickness, Postoperative Nausea & Vomiting (PONV) Additional Past Anesthesia/Blood Transfusion Reaction / Comment(s): HAS INNER EAR DISTURBANCE CAUSES HER DIZZINESS AT TIMES. Past Psychological History: Depression Smoking Status: Never smoker Past Alcohol Use History: None Reported Past Drug Use History: None Reported - Past Family History Mother Family Medical History: No Reported History Father History Unknown: Yes Brother(s) Family Medical History: Cancer General Exam Limitations: physical limitation Course Vital Signs 02/23/22 12:39 Temperature 99.0 F Pulse Rate 64 Respiratory 20 Rate Blood Pressure 171/89 O2 Sat by Pulse 98 Oximetry Medical Decision Making - Lab Data Result diagrams: 02/23/22 14:10 02/23/22 14:10 Lab Results 02/23/22 02/23/22 02/23/22 Range/Units 14:10 14:10 14:10 WBC 8.4 (3.8-10.6) k/uL RBC 4.16 (3.80-5.40) m/uL Hgb 12.8 (11.4-16.0) gm/dL Hct 38.6 (34.0-46.0) % MCV 92.7 (80.0-100.0) fL MCH 30.9 (25.0-35.0) pg MCHC 33.3 (31.0-37.0) g/dL RDW 13.2 (11.5-15.5) % Plt Count 184 (150-450) k/uL MPV 8.7 Neutrophils % 76 % Lymphocytes % 15 % Monocytes % 4 % Eosinophils % 4 % Basophils % 0 % Neutrophils # 6.4 (1.3-7.7) k/uL Lymphocytes # 1.3 (1.0-4.8) k/uL Monocytes # 0.3 (0-1.0) k/uL Eosinophils # 0.3 (0-0.7) k/uL Basophils # 0.0 (0-0.2) k/uL PT 10.9 (9.0-12.0) sec INR 1.0 (<1.2) APTT 24.1 (22.0-30.0) sec Sodium 140 (137-145) mmol/L Potassium 4.2 (3.5-5.1) mmol/L Chloride 110 H (98-107) mmol/L Carbon Dioxide 22 (22-30) mmol/L Anion Gap 8 mmol/L BUN 13 (7-17) mg/dL Creatinine 0.63 (0.52-1.04) mg/dL Est GFR (CKD-EPI)AfAm >90 (>60 ml/min/1.73 sqM) Est GFR (CKD-EPI)NonAf 85 (>60 ml/min/1.73 sqM) Glucose 129 H (74-99) mg/dL Calcium 8.5 (8.4-10.2) mg/dL Disposition Clinical Impression: Periprosthetic fracture of knee Disposition: ADMITTED IP TO THIS [facility] Condition: Serious Referrals: None,Stated [Primary Care Provider] - 1-2 days Decision Time: 14:48
--- NOTE | 2022-02-23 13:52 | CT ---
EXAMINATION TYPE: CT brain cspine wo con CT DLP: 1334.4 mGycm, Automated exposure control for dose reduction was used. DATE OF EXAM: 02/23/2022 1:41 PM COMPARISON: CT brain C-spine 11/23/2017. CLINICAL INDICATION:Female, 82 years old with history of fall; TECHNIQUE: Brain: Multiple axial CT images of the brain were obtained without IV contrast. Cspine: Axial CT images from the skull base to the inferior aspect of T2 we obtained without intraven ous contrast. Coronal and sagittal reformatted images were also reviewed. FINDINGS: Brain: Extra-axial spaces: No abnormal extra-axial fluid collections. Stable calcified 8 mm extra-axial roun d lesion along the right frontal convexity consistent with a benign meningioma. Ventricular system: Within normal limits Cerebral parenchyma: No acute intraparenchymal hemorrhage or mass effect. The sow-white junction is well differentiated. Scattered hypoattenuating areas are seen within the white matter. Mild cerebra l volume loss. Cerebellum: Unremarkable. Mass effect: No evidence of midline shift. Intracranial vasculature: Atherosclerotic calcifications of the intracranial vessels. Soft tissues: Normal. Calvarium/osseous structures: No depressed skull fracture. Paranasal sinuses and mastoid air cells: Clear. Visualized orbits: Bilateral aphakia Cervical spine: Fracture: None. Osseous structures: Multilevel degenerative disc disease changes with endplate spurring and disc oste ophyte complex's. Multilevel facet arthropathy. Diffuse bony mineralization. Vertebral alignment: Grade 1 anterolisthesis of C2 on C3, likely degenerative. Spinal canal/Neural Foramina: Disc osteophyte complexes at C4-C5, C5-C6, and C6-C7 with at least mild spinal canal stenosis. Facet joint uncovertebral joint arthropathy scattered throughout the cervical spine with varying degrees of neural foraminal stenosis. Neck soft tissues: Prevertebral soft tissues are within normal limits. Other: The airway is patent. The lung apices are clear. Vascular sclerosis. IMPRESSION: 1. No acute intracranial process. 2. Nonspecific white matter changes, likely secondary to chronic small vessel ischemic disease. 3. No evidence of cervical spine fracture. 4. Mild to moderate multilevel degenerative disc disease.
--- NOTE | 2022-02-23 14:08 | XR ---
EXAMINATION TYPE: XR chest 1V portable DATE OF EXAM: 02/23/2022 2:03 PM COMPARISON: Chest radiographs from 04/25/2020. TECHNIQUE: XR chest 1V portable Frontal view of the chest. CLINICAL INDICATION:Female, 82 years old with history of fall; FINDINGS: Patient is rotated which limits evaluation. Lungs/Pleura: There is no evidence of pleural effusion, focal consolidation, or pneumothorax. Pulmonary vascularity: Unremarkable. Heart/mediastinum: Cardiomediastinal silhouette is enlarged and stable. Musculoskeletal: No acute osseous pathology. Midline sternotomy wires are noted and stable. Vertebral augmentation of the lower thoracic spine redemonstrated. IMPRESSION: 1. No acute cardiopulmonary disease/process. 2. Stable cardiomegaly.
--- NOTE | 2022-02-23 14:10 | XR ---
EXAMINATION TYPE: XR pelvis AP view DATE OF EXAM: 02/23/2022 2:03 PM INDICATION: Patient age:Female; 82 years old; Reason for study: fall; [facility]. COMPARISON: Lumbar spine radiograph 02/05/2019 TECHNIQUE: The pelvis was examined in a single projection. FINDINGS: Diffuse bony demineralization. There is no evidence of fracture or dislocation. There is no soft tissue abnormality. No abnormal calcifications are present. Multilevel degenerative changes of the lower spine. Stimulator leads overlie the lower lumbar spine. Curvilinear calcification and pelv ic phleboliths in the pelvis. Surgical clips overlie the sacrum. Nonobstructive bowel gas pattern. IMPRESSION: No acute fracture or dislocation.
--- NOTE | 2022-02-23 14:15 | XR ---
EXAMINATION TYPE: XR knee 4V LT, XR femur LT DATE OF EXAM: 02/23/2022 2:03 PM INDICATION: Patient age:Female; 82 years old; Reason for study: fall; [facility]. COMPARISON: Left knee radiograph 03/25/2020 TECHNIQUE: The Left knee(s) was examined in AP, oblique, lateral, and sunrise projections. The left f emur was examined in AP and lateral projections. FINDINGS: Diffuse bone demineralization which limits evaluation. Postsurgical changes from left tota l knee arthroplasty. Hardware appears intact. No dislocation. Acute comminuted oblique fracture with mild displacement and shortening of the distal femur with approximately 2.6 cm superior lateral displ acement of the large lateral fracture fragment. The fracture lines extend towards the femoral hardwar e. Thin fracture line extends superiorly into the femoral metaphysis. Cortical disruption along the r ight femoral epicondyle. There is surrounding soft tissue edema. Small joint effusion suggested. The left hip is intact. Vascular sclerosis. IMPRESSION: 1. Acute comminuted mildly displaced distal femur fracture. 2. Postsurgical changes from total left knee arthroplasty. Hardware appears intact. No dislocation.
[2022-02-23 14:16] LABS: Basophils % (A) 0 %; Eosinophils # (A) 0.3 k/uL (0-0.7); Eosinophils % (A) 4 %; HCT 38.6 % (34.0-46.0); HGB 12.8 gm/dL (11.4-16.0); Lymphocytes # (A) 1.3 k/uL (1.0-4.8); Lymphocytes % (A) 15 %; MCH 30.9 pg (25.0-35.0); MCHC 33.3 g/dL (31.0-37.0); MCV 92.7 fL (80.0-100.0); Mean Platelet Volume 8.7; Monocytes # (A) 0.3 k/uL (0-1.0); Monocytes % (A) 4 %; Neutrophils # (A) 6.4 k/uL (1.3-7.7); Neutrophils % (A) 76 %; Platelet Count 184 k/uL (150-450); RBC 4.16 m/uL (3.80-5.40); RDW 13.2 % (11.5-15.5); WBC 8.4 k/uL (3.8-10.6)
[2022-02-23 14:29] LABS: Partial Thromboplastin Time 24.1 sec (22.0-30.0); Prothrombin Time 10.9 sec (9.0-12.0)
[2022-02-23 14:32] LABS: African American GFR (CKD) >90 (>60 ml/min/1.73 sqM); Anion Gap 8 mmol/L; Blood Urea Nitrogen 13 mg/dL (7-17); Calcium 8.5 mg/dL (8.4-10.2); Carbon Dioxide 22 mmol/L (22-30); Chloride 110 mmol/L (98-107); Glucose 129 mg/dL (74-99); Non-African American GFR(CKD) 85 (>60 ml/min/1.73 sqM); Potassium 4.2 mmol/L (3.5-5.1); Sodium 140 mmol/L (137-145)
[2022-02-23] MEDS ORDERED: NALOXONE 0.4 MG/ML 1 ML VIAL IV PRN (14:46)
[2022-02-23] MEDS ORDERED: ONDANSETRON 4 MG/2 ML VIAL IVP PRN (14:46)
[2022-02-23] MEDS ORDERED: ACETAMINOPHEN TAB 325 MG TAB PO PRN (14:46)
--- NOTE | 2022-02-23 15:16 | CT ---
EXAMINATION TYPE: CT lower extremity LT wo con CT DLP: 468.1 mGycm, Automated exposure control for dose reduction was used. DATE OF EXAM: 02/23/2022 2:48 PM COMPARISON: Left knee and femur radiographs of the same date. CLINICAL INDICATION:Female, 82 years old with history of periprosthetic fracture; PHH, Pain left knee TECHNIQUE: Axial images were obtained of the left lower extremity without the use of IV contrast. Ad ditional coronal and sagittal reformatted images and soft tissue and bone window were obtained for re view. 3-D reconstruction was created on a separate workstation. FINDINGS: Postsurgical changes from total left knee arthroplasty. Hardware is intact. No dislocation. This crea makayla streak artifact limiting evaluation. Diffuse bone demineralization was also evaluation. Acute comminuted mildly displaced oblique distal femur fracture. There is some shortening/impaction i dentified. Fracture line extends along the posterior cortex of the femoral mid shaft, medial epicondy le cortex and lateral metaphyseal cortex. Mild anterior apex angulation identified. Diffuse soft tiss ue edema. Surrounding fat stranding/hemorrhage identified extending into the posterior fascial planes . Small joint effusion with lipohemarthrosis. The visualized tibia and fibula appear to be intact. Vascular sclerosis. IMPRESSION: 1. Acute comminuted distal femur fracture as described above. There is small suprapatellar joint eff usion with lipohemarthrosis. Additional posterior hemorrhage extending into the surrounding fascial p lanes. 2. Postsurgical changes of total left knee arthroplasty. Hardware appears intact. No dislocation.
[2022-02-23] MEDS: SODIUM CHLORIDE 0.9% 1,000 ML IV SCH (15:46)
[2022-02-23] MEDS: MORPHINE SULFATE 4 MG/ML SYRINGE IV PRN ×2 (16:36→21:07)
[2022-02-23] MEDS ORDERED: ACETAMINOPHEN TAB 325 MG TAB ONE (23:33)
[2022-02-24] MEDS ORDERED: MORPHINE SULFATE 4 MG/ML SYRINGE ONE (02:08)
[2022-02-24] MEDS: MORPHINE SULFATE 4 MG/ML SYRINGE IV PRN ×2 (05:35→10:18)
[2022-02-24] MEDS: SODIUM CHLORIDE 0.9% 1,000 ML IV SCH ×3 (05:37→16:22)
[2022-02-24] MEDS ORDERED: MECLIZINE 25 MG TAB PO PRN (07:34)
[2022-02-24] MEDS ORDERED: ONDANSETRON 4 MG/2 ML VIAL IVP PRN (11:12)
[2022-02-24] MEDS ORDERED: HYDROmorphone 0.5 MG/0.5 ML SYRINGE IVP PRN ×2 (11:12)
--- NOTE | 2022-02-24 11:24 | P.HPOR ---
History of Present Illness H&P Date: 02/24/22 Chief Complaint: Left distal femur fracture Patient is an 82-year-old female seen at bedside this am. She was admitted through the ED yesterday after suffering a fall at home resulting in a left periprosthetic distal femur fracture. She is status post left total knee arthroplasty approximately 2 years ago. She has pain at the left knee as expected. She denies new numbness or tingling. She denies calf pain. She has no fever, chills, chest pain or shortness of breath. ED history: Patient states that this current approximately 1-2 hours prior to arrival she stepped on wet floor when she slipped and her legs slid under a light on her left knee. Patient's history of knee replacement on the left. Denies any loss of consciousness. She states the pain is to her lower thigh and knee area. Denies any numbness and paresthesias to the left leg patient is brought in by EMS. Denies any neck regulation medications. Review of Systems All systems: negative Constitutional: Denies chills, Denies fever Eyes: denies blurred vision, denies pain Ears, nose, mouth and throat: Denies headache, Denies sore throat Cardiovascular: Denies chest pain, Denies shortness of breath Respiratory: Denies cough Gastrointestinal: Denies abdominal pain, Denies diarrhea, Denies nausea, Denies vomiting Genitourinary: Denies dysuria, Denies hematuria Musculoskeletal: Denies myalgias Integumentary: Denies pruritus, Denies rash Neurological: Denies numbness, Denies weakness Psychiatric: Denies anxiety, Denies depression Endocrine: Denies fatigue, Denies weight change Past Medical History Past Medical History: Coronary Artery Disease (CAD), Hyperlipidemia, Hypertension, Osteoarthritis (OA) Additional Past Medical History / Comment(s): migraines, GOUT, urinary incontinence History of Any Multi-Drug Resistant Organisms: None Reported Past Surgical History: Appendectomy, Back Surgery, Bladder Surgery, Cholecystectomy, Coronary Bypass/CABG, Heart Catheterization, Hysterectomy, Joint Replacement, Orthopedic Surgery, Tonsillectomy Additional Past Surgical History / Comment(s): CABG [id number], rt knee surgery, surgery ingris thumbs, ingris cataracts, 01-06-16 TOTAL RT KNEE REPLACMENT Past Anesthesia/Blood Transfusion Reactions: Motion Sickness, Postoperative Nausea & Vomiting (PONV) Additional Past Anesthesia/Blood Transfusion Reaction / Comment(s): HAS INNER EAR DISTURBANCE CAUSES HER DIZZINESS AT TIMES. Past Psychological History: Depression Smoking Status: Never smoker Past Alcohol Use History: None Reported Past Drug Use History: None Reported - Past Family History Mother Family Medical History: No Reported History Father History Unknown: Yes Brother(s) Family Medical History: Cancer Medications and Allergies Home Medications Medication Instructions Recorded Confirmed Type Atorvastatin [Lipitor] 40 mg PO HS 12/02/15 02/23/22 History Vit A/Vit C/Vit E/Zinc/Copper 2 cap PO DAILY 12/02/15 02/23/22 History [ICAPS SOFTGEL] atenoloL [Tenormin] 25 mg PO DAILY 12/02/15 02/23/22 History Meclizine [Antivert] 25 mg PO TID PRN 11/16/18 02/23/22 History Calcium Carbonate [Calcium] 600 mg PO BID 02/23/22 02/23/22 History Ergocalciferol (Vitamin D2) 1,250 mcg PO FR 02/23/22 02/23/22 History [Drisdol (50,000 Iu)] Mirabegron [Myrbetriq] 50 mg PO HS 02/23/22 02/23/22 History PARoxetine HCL [Paxil Cr] 37.5 mg PO HS 02/23/22 02/23/22 History QUEtiapine [SEROquel] 50 mg PO HS 02/23/22 02/23/22 History Vit A/Vit C/Vit E/Zinc/Copper 1 cap PO HS 02/23/22 02/23/22 History [ICAPS SOFTGEL] lisinopriL [Zestril] 5 mg PO DAILY 02/23/22 02/23/22 History Allergies Allergy/AdvReac Type Severity Reaction Status Date / Time No Known Allergies Allergy Verified 02/23/22 15:37 Physical Examination Gen. NAD wound affect appropriate AO 5 Inspection of the left lower extremity shows no deformity. There are no wounds or erythema. There is swelling about the left knee as expected. Range of motion of the knee and hip is not tested due to the fracture. Calf is soft nontender. Motor and sensation is grossly intact throughout the left lower extremity. 2+ dorsalis pedis pulse and less than 2 second capillary refill is present. Results - Labs Labs: Abnormal Lab Results - Last 24 Hours (Table) 02/23/22 Range/Units 14:10 Chloride 110 H (98-107) mmol/L Glucose 129 H (74-99) mg/dL H & H 02/23/22 Range/Units 14:10 Hgb 12.8 (11.4-16.0) gm/dL Hct 38.6 (34.0-46.0) % Coagulation 02/23/22 Range/Units 14:10 INR 1.0 (<1.2) Result Diagrams: 02/23/22 14:10 02/23/22 14:10 - Diagnostic results Knee x-ray: report reviewed, image reviewed Assessment and Plan (1) Periprosthetic fracture of knee Narrative/Plan: Patient has been reviewed with Dr. Liriano. Plan is to proceed with surgical intervention including ORIF of left distal femur periprosthetic fracture. She has been nothing by mouth. Procedure and consented been ordered. Internal medicine consult has been requested. She appears to be medically stable to proceed with surgery. She'll resume pain management, medical management and may need assistance for placement and discharge planning postoperatively. Current Visit: Yes Status: Acute Priority: Medium Code(s): M97.9XXA - PERIPROSTH FRACTURE AROUND UNSP INTERNAL PROSTH JOINT, INIT SNOMED Code(s): 106724505 Time with Patient: Less than 30
--- NOTE | 2022-02-24 11:30 | P.CONS ---
History of Present Illness - History of Present Illness This is a pleasant 82 years old female with past medical history of Coronary Artery Disease status post CABG in 2007 , Hyperlipidemia, Hypertension, Osteoarthritis , migraines, GOUT, urinary incontinences/p Back Surgery, Bladder Surgery, patient states that she was working and the floor was wet and she did not know so she slipped and fell on her left knee. She denies headache,. She denies syncope or dizziness. She denies chest pain or dyspnea or coughing. No abdominal pain or vomiting or diarrhea. No urgency or change in urinary frequency. No fever. denies smoking, alcohol or illicit drugs. She has history of depression after her about 1.5 years ago, she was started on Paxil and suitable about one month ago and she thinks it's help in her and she wants to continue with the same medication. No other recent medication change Vitas looks stable, blood pressure 111/71. Patient is afebrile. Patient has unremarkable CBC, INR, BMP. CT of the head and cervical spine: No acute intracranial process. No cervical spine fracture Chest x-ray: No acute process. Stable cardiomegaly Pelvic x-ray: No acute fracture or dislocation Left knee x-ray: Acute comminuted mildly displaced distal femur fracture with postsurgical changes from total left knee arthroplasty Lower extremity CT without contrast, acute comminuted distal fracture of the femur. In the emergency room this seemed IV fluids Review of Systems Review of systems CONSTITUTIONAL: No fever, no malaise, no fatigue. HEENT: No recent visual problems or hearing problems. Denied any sore throat. CARDIOVASCULAR: No orthopnea, PND, no palpitations, no syncope. PULMONARY: No shortness of breath, no cough, no hemoptysis. GASTROINTESTINAL: No diarrhea, no nausea, no vomiting, no abdominal pain. Normoactive bowel sounds. NEUROLOGICAL: No headaches, no weakness, no numbness. HEMATOLOGICAL: Denies any bleeding or petechiae. GENITOURINARY: Denies any burning micturition, frequency, or urgency. -MUSCULOSKELETAL/RHEUMATOLOGICAL: Denies any joint pain, swelling, or any muscle pain. except what is mentioned above ENDOCRINE: Denies any polyuria or polydipsia. Past Medical History Past Medical History: Coronary Artery Disease (CAD), Hyperlipidemia, Hypertension, Osteoarthritis (OA) Additional Past Medical History / Comment(s): migraines, GOUT, urinary incontinence History of Any Multi-Drug Resistant Organisms: None Reported Past Surgical History: Appendectomy, Back Surgery, Bladder Surgery, Cholecystectomy, Coronary Bypass/CABG, Heart Catheterization, Hysterectomy, Joint Replacement, Orthopedic Surgery, Tonsillectomy Additional Past Surgical History / Comment(s): CABG [id number], rt knee surgery, surgery ingris thumbs, ingris cataracts, 16 TOTAL RT KNEE REPLACMENT Past Anesthesia/Blood Transfusion Reactions: Motion Sickness, Postoperative Nausea & Vomiting (PONV) Additional Past Anesthesia/Blood Transfusion Reaction / Comm: HAS INNER EAR DISTURBANCE CAUSES HER DIZZINESS AT TIMES. Past Psychological History: Depression Smoking Status: Never smoker Past Alcohol Use History: None Reported Past Drug Use History: None Reported - Past Family History Mother Family Medical History: No Reported History Father History Unknown: Yes Brother(s) Family Medical History: Cancer Medications and Allergies Home Medications Medication Instructions Recorded Confirmed Type Atorvastatin [Lipitor] 40 mg PO HS 12/02/15 02/23/22 History Vit A/Vit C/Vit E/Zinc/Copper 2 cap PO DAILY 12/02/15 02/23/22 History [ICAPS SOFTGEL] atenoloL [Tenormin] 25 mg PO DAILY 12/02/15 02/23/22 History Meclizine [Antivert] 25 mg PO TID PRN 11/16/18 02/23/22 History Calcium Carbonate [Calcium] 600 mg PO BID 02/23/22 02/23/22 History Ergocalciferol (Vitamin D2) 1,250 mcg PO FR 02/23/22 02/23/22 History [Drisdol (50,000 Iu)] Mirabegron [Myrbetriq] 50 mg PO HS 02/23/22 02/23/22 History PARoxetine HCL [Paxil Cr] 37.5 mg PO HS 02/23/22 02/23/22 History QUEtiapine [SEROquel] 50 mg PO HS 02/23/22 02/23/22 History Vit A/Vit C/Vit E/Zinc/Copper 1 cap PO HS 02/23/22 02/23/22 History [ICAPS SOFTGEL] lisinopriL [Zestril] 5 mg PO DAILY 02/23/22 02/23/22 History Allergies Allergy/AdvReac Type Severity Reaction Status Date / Time No Known Allergies Allergy Verified 02/23/22 15:37 Physical Exam Vitals: Vital Signs Temp Pulse Pulse Resp BP BP Pulse Ox 02/24/22 08:00 98.7 F 79 18 100/66 91 L 02/24/22 00:00 98.0 F 86 18 111/71 95 02/23/22 22:42 98.5 F 84 15 113/68 98 02/23/22 21:52 99.0 F 81 18 135/82 96 02/23/22 21:11 81 18 135/82 96 02/23/22 12:39 99.0 F 64 20 171/89 98 Intake and Output 02/23/22 02/24/22 02/24/22 22:59 06:59 14:59 Intake Total 200 Output Total 50 Balance 150 Intake: Oral 200 Output: Urine 50 Uretheral (Chavez) 50 Other: # Voids 1 0 Weight 71.214 kg GENERAL: The patient is alert and oriented x3, not in any acute distress. Well developed, well nourished. HEENT: Pupils are round and equally reacting to light. EOMI. No scleral icterus. No conjunctival pallor. Normocephalic, atraumatic. No pharyngeal erythema. No thyromegaly. CARDIOVASCULAR: S1 and S2 present. No murmurs, rubs, or gallops. PULMONARY: Chest is clear to auscultation, no wheezing or crackles. ABDOMEN: Soft, nontender, nondistended, normoactive bowel sounds. No palpable organomegaly. MUSCULOSKELETAL: No joint swelling or deformity. -EXTREMITIES: No cyanosis, clubbing, or pedal edema. left knee is swollen and in external brace NEUROLOGICAL: Gross neurological examination did not reveal any focal deficits. SKIN: No rashes. no petechiae. Results CBC & Chem 7: 02/23/22 14:10 02/23/22 14:10 Labs: Abnormal Lab Results - Last 24 Hours (Table) 02/23/22 Range/Units 14:10 Chloride 110 H (98-107) mmol/L Glucose 129 H (74-99) mg/dL Assessment and Plan Assessment: Fall without losing consciousness Acute comminuted mildly displaced distal femur fracture secondary to above History of osteoarthritis with History of left knee replacement surgery and total knee arthroplasty History of coronary artery disease status post CABG Hypertension Hyperlipidemia History of migraine History of gout History of urinary incontinence History of back surgery Plan: This is a pleasant 82 years old female presents with fall and knee fracture Continue with pain management Orthopedic team consult Check urine analysis Continue with gentle hydration Check TSH and orthostatic vital Labs and medication were reviewed.. Continue same treatment. Continue with symptomatic treatment. Resume home medication. Monitor lytes and vitals. DVT and GI prophylaxis. Further recommendations as per clinical course of the pat ient DVT prophylaxis: deferred to surgery team GI Prophylaxis: Pepcid PT/OT: Pending Prognosis is guarded thank you for consulting us, who will follow up with you
[2022-02-24] MEDS: HYDROmorphone 0.5 MG/0.5 ML SYRINGE IVP PRN (14:06)
[2022-02-24] MEDS: LACTATED RINGERS 1,000 ML IV SCH ×2 (16:22→22:03)
[2022-02-24] MEDS ORDERED: LACTATED RINGERS 1,000 ML IV ONE ×2 (18:09→20:08)
[2022-02-24 18:16] LABS: Amorphous Sediment,Urine Rare /hpf; Appearance,Urine Cloudy (Clear); Bacteria,Urine Few /hpf; Bilirubin,Urine Negative (Negative); Blood,Urine Negative (Negative); Calcium Oxalate Crystals,Urine Rare /hpf; Color,Urine Yellow; Glucose,Urine (UA) Negative (Negative); Ketones,Urine Negative (Negative); Leukocyte Esterase,Urine Large (Negative); Mucus,Urine Many /hpf; Nitrite,Urine Negative (Negative); Protein,Urine Trace (Negative); RBC,Urine 7 /hpf (0-5); Specific Gravity,Urine 1.023 (1.001-1.035); Squamous Epithelial Cell,Urine 1 /hpf (0-4); Urobilinogen,Urine <2.0 mg/dL (<2.0); WBC,Urine 151 /hpf (0-5)
[2022-02-24] MEDS ORDERED: NA PHOS,M-B/NA PHOS,DI-BA 133 ML ENEMA RECTAL PRN (18:24)
[2022-02-24] MEDS ORDERED: traMADol 50 MG TAB PO PRN (18:24)
[2022-02-24] MEDS ORDERED: MAGNESIUM HYDROXIDE 2,400 MG/10 ML CUP PO PRN (18:24)
[2022-02-24] MEDS ORDERED: bisacodyL 10 MG SUPP RECTAL PRN (18:24)
[2022-02-24] MEDS ORDERED: PHENYLEPHRINE-0.9% NACL SYG 1,000 MCG/10 ML SYRINGE ONE (18:25)
[2022-02-24] MEDS ORDERED: PROPOFOL 10 MG/ML 20 ML VIAL IV ONE (18:25)
[2022-02-24] MEDS ORDERED: SUCCINYLCHOLINE CHLORIDE 200 MG/10 ML VIAL IV ONE (18:25)
[2022-02-24] MEDS ORDERED: fentaNYL (PF) 50 MCG/ML 2 ML AMP ONE (18:25)
[2022-02-24] MEDS ORDERED: LIDOCAINE 2% INJ 20 MG/ML (2 ML VIAL) ONE (18:25)
--- NOTE | 2022-02-24 20:08 | XR ---
EXAMINATION TYPE: XR femur LT DATE OF EXAM: 02/24/2022 COMPARISON: Yesterday HISTORY: Femur surgery TECHNIQUE: 51 seconds fluoroscopy time was recorded FINDINGS: Fluoroscopic images were obtained that show placement of plate and screws fixating the mid and distal femur. Supracondylar fracture of the distal femur appears in good position. There is a lef t knee prosthesis. IMPRESSION: No complicating process seen.
[2022-02-24] MEDS ORDERED: ONDANSETRON 4 MG/2 ML VIAL IVP ONE (20:27)
[2022-02-24] MEDS: SENNOSIDES-DOCUSATE SODIUM 1 EACH TAB PO SCH (22:02)
[2022-02-24] MEDS: QUEtiapine 50 MG TAB PO SCH (22:02)
[2022-02-24] MEDS: ATORVASTATIN 40 MG TAB PO SCH (22:03)
[2022-02-24] MEDS: ASPIRIN 81 MG PO SCH (22:03)
[2022-02-24] MEDS: PARoxetine 10 MG TAB PO SCH (22:03)
[2022-02-25] MEDS: SODIUM CHLORIDE 0.9% 1,000 ML IV SCH ×3 (00:19→17:12)
--- NOTE | 2022-02-25 03:05 | OP ---
OPERATIVE REPORT [facility] [employer] SENIOR DEVELOPER: Niles De La Vega PA-C. PREOPERATIVE DIAGNOSIS: Left comminuted distal femur periprosthetic fracture. POSTOPERATIVE DIAGNOSIS: Left comminuted distal femur periprosthetic fracture. PROCEDURE PERFORMED: Left open reduction and internal fixation of comminuted periprosthetic distal femur fracture. ANESTHESIA: General endotracheal. ESTIMATED BLOOD LOSS: 75 mL. TOURNIQUET: None. DRAINS: None. COMPLICATIONS: None apparent. DISPOSITION: Postanesthesia care unit. INDICATIONS: Giovanna is a very pleasant 82-year-old female, well known to me. She underwent a left total knee arthroplasty done by myself a little over 2 years ago. She slipped in her house yesterday in the kitchen on a wet floor and had immediate left leg pain. She was brought via ambulance to [facility]. Workup including x-rays and a CT scan revealed a comminuted left distal femur periprosthetic fracture. She was admitted to my service. She is an independent ambulator. She does live by herself. Recommendation was for open reduction and internal fixation of her fracture. The risks were discussed with both Giovanna and her family. The risks include, but are not limited to risk of infection, nerve damage, bleeding, pain, and a small risk of deep vein thrombosis which could lead to fatal pulmonary embolism. Further risks include failure of the fracture to heal, failure of the hardware, which could necessitate further operation. All of her and her family's questions with regard to the risks of procedure were answered to their satisfaction. Appropriate informed consent was obtained. DESCRIPTION OF PROCEDURE: The patient was identified in the preoperative holding area. Surgical site was marked by both the patient and myself. She was given 2 g of Ancef IV for prophylactic purposes. She was then transported to the operative suite. She was placed supine on the operative room table. A general anesthetic was then administered, dosed per the Anesthesia, without apparent complication. The left upper extremity was then prepped and draped in usual sterile fashion. Standard surgical pause was undertaken to ensure that we were operating the correct site and appropriate preoperative antibiotics had been given. All staff in the room were in agreement, and we proceeded. The leg was then placed on a very small radiolucent triangle. Gerdy tubercle was identified. A planned incision starting just proximal to the Gerdy tubercle and extending proximally in line with the iliotibial band was then marked with a surgical pen. The incision was then made with a 10 blade scalpel. Dissection was carried down sharply to the iliotibial band. Hemostasis was achieved with electrocautery. The iliotibial band was then incised in line with its fibers. The vastus lateralis was then identified and then a wide Hohmann type retractor was then placed on the medial femur. This gave me excellent exposure to the distal femur. The fracture reduced very nicely with traction. I had a good cortical read on the fracture with the exposure. An 8-hole Synthes left-sided distal femoral locking plate was then chosen. It was then placed onto the lateral femur. Fluoroscopy was then brought in to ensure proper placement of the plate. We then proceeded with placement of the screws. I started with a central hole distal locking screw. This was an 80 mm screw. This was tightened down firmly to the plate. A guidewire was placed in the most proximal hole to hold the plate onto the bone. I then proceeded with placement of 3 more distal locking screws. These were 5 mm cannulated distal locking screws. Fluoroscopy was utilized to ensure their placement was appropriate within the condyles and the length was appropriate. I then proceeded to place a bicortical nonlocking screw in the femoral shaft. This screw had excellent purchase in bone. Giovanna's bone quality was excellent. This brought the plate down flush with the femoral shaft. I then placed 3 more bicortical locking screws in the proximal aspect of the plate and placed 2 more distal locking screws through the plate and the condyles. All screws were of appropriate length and placed into bone. This was confirmed with fluoroscopic imaging. Final fluoroscopic image was then taken. The fracture bed reduced anatomically. The plated was placed very nicely on the lateral cortex of the distal femur. All the screws were in appropriate length and well within bone as noted with fluoroscopic imaging. At this point in time, no further work was deemed necessary. The wound was then thoroughly irrigated with sterile saline solution with antibiotic added. The iliotibial band was then repaired with 0 Vicryl interrupted suture. Again, the wound was thoroughly irrigated. The subcutaneous tissue was closed with 2-0 Vicryl interrupted suture and the skin was closed with stainless steel trey. Sterile compressive dressing was then applied. The patient's left upper extremity was then placed into a knee immobilizer. All sponge and needle counts were deemed correct prior to closure. The patient tolerated the procedure without apparent complication. Tourniquet was not utilized at all. She was transferred to the recovery room in stable condition. JIN / YASMIN: [id number] /
[2022-02-25] MEDS: HYDROmorphone 0.5 MG/0.5 ML SYRINGE IVP PRN (03:21)
[2022-02-25 08:54] LABS: Basophils # (A) 0.02 X 10*3/uL (0.00-0.10); Basophils % (A) 0.3 %; Eosinophils # (A) 0.05 X 10*3/uL (0.04-0.35); Eosinophils % (A) 0.7 %; HCT 23.9 % (37.2-46.3); HGB 7.5 g/dL (12.0-15.0); Immature Grans, Automated 0.3 %; Lymphocytes # (A) 1.82 X 10*3/uL (0.90-5.00); Lymphocytes % (A) 23.7 %; MCH 30.2 pg (27.0-32.0); MCHC 31.4 g/dL (32.0-37.0); MCV 96.4 fL (80.0-97.0); Mean Platelet Volume 11.3 fL (9.5-12.2); Monocytes # (A) 1.05 X 10*3/uL (0.20-1.00); Monocytes % (A) 13.7 %; NRBC Per 100 WBC 0 /100 WBCS (0.0-0.0); Neutrophils # (A) 4.71 X 10*3/uL (1.80-7.70); Neutrophils % (A) 61.3 %; Platelet Count 111 X 10*3/uL (140-440); RBC 2.48 X 10*6/uL (4.10-5.20); RDW 14.2 % (11.5-14.5); WBC 7.67 X 10*3/uL (4.50-10.00)
[2022-02-25 09:01] LABS: Magnesium 1.7 mg/dL (1.5-2.4)
[2022-02-25 09:02] LABS: African American GFR (CKD) 99.8 (60.0-200.0); Anion Gap 7.6 mmol/L (10.00-18.00); BUN/Creat Ratio 17.5 Ratio (12.00-20.00); Blood Urea Nitrogen 10.5 mg/dL (9.0-27.0); Calcium 7.5 mg/dL (8.7-10.3); Carbon Dioxide 21.4 mmol/L (20.0-27.5); Non-African American GFR(CKD) 86.1 (60.0-200.0); Potassium 4.1 mmol/L (3.5-5.5)
[2022-02-25] MEDS: ASPIRIN 81 MG PO SCH ×2 (09:23→21:32)
[2022-02-25] MEDS: MULTIVITAMINS, THERA 1 EACH TAB PO SCH (09:23)
--- NOTE | 2022-02-25 09:48 | P.PN ---
Subjective Progress Note Date: 02/25/22 Principal diagnosis: Periprosthetic fracture left distal femur. Status post ORIF left distal femur. Patient is an 82-year-old female seen at bedside this am. She was admitted throu gh the ED after suffering a fall at home resulting in a left periprosthetic distal femur fracture. She is status post left total knee arthroplasty approximately 2 years ago. She has pain at the left knee as expected. She denies new numbness or tingling. She denies calf pain. She has no fever, ch ills, chest pain or shortness of breath. ED history: Patient states that this current approximately 1-2 hours prior to arrival she stepped on wet floor when she slipped and her legs slid under a light on her left knee. Patient's history of knee replacement on the left. Denies any loss of consciousness. She states the pain is to her lower thigh and knee area. Denies any numbness and paresthesias to the left leg patient is brought in by EMS. Denies any neck regulation medications. 02/25/2022: The patient is postoperative day #1 status post ORIF left distal femur. She has no new complaints or concerns today. Vital signs are stable.Hemoglobin has dropped to 7.5 from 12.8 on admission. She denies lightheadedness or dizziness. Objective - Vital Signs Vital signs: Vital Signs Temp 99.6 F 02/25/22 02:00 Pulse 92 02/25/22 02:00 Resp 14 02/25/22 02:00 BP 123/68 02/25/22 02:00 Pulse Ox 97 02/25/22 02:00 FiO2 Intake & Output 02/24/22 02/25/22 02/25/22 18:59 06:59 18:59 Intake Total 850 200 Output Total 1250 475 Balance -400 -275 Weight 71.214 kg Intake: IV 850 200 Output: Urine 1250 400 Estimated Blood Loss 75 Other: Voiding Method Indwelling Catheter Indwelling Catheter - Exam This is a pleasant 82-year-old female in no acute distress. She is alert and oriented 3. She is sitting up in a chair. She does appear quite pale today. Exam of the left lower extremity reveals knee immobilizer in place. She has full foot and ankle motion without difficulty or pain. Neurovascular status to the lower extremity is intact. Pedal pulse is +2/4. - Labs CBC & Chem 7: 02/25/22 05:37 02/25/22 05:37 Labs: Abnormal Lab Results - Last 24 Hours (Table) 02/24/22 02/25/22 02/25/22 Range/Units 17:53 05:37 05:37 RBC 2.48 L (4.10-5.20) X 10*6/uL Hgb 7.5 L (12.0-15.0) g/dL Hct 23.9 L (37.2-46.3) % MCHC 31.4 L (32.0-37.0) g/dL Plt Count 111 L (140-440) X 10*3/uL Monocytes # 1.05 H (0.20-1.00) X 10*3/uL Chloride 112 H (96-109) mmol/L Anion Gap 7.60 L (10.00-18.00) mmol/L Calcium 7.5 L (8.7-10.3) mg/dL Urine Appearance Cloudy H (Clear) Urine Protein Trace H (Negative) Ur Leukocyte Esterase Large H (Negative) Urine RBC 7 H (0-5) /hpf Urine WBC 151 H (0-5) /hpf Urine WBC Clumps Occasional H (None) /hpf Calcium Oxalate Crystal Rare H (None) /hpf Amorphous Sediment Rare H (None) /hpf Urine Bacteria Few H (None) /hpf Urine Mucus Many H (None) /hpf Microbiology - Last 24 Hours (Table) 02/24/22 17:53 Urine Culture - Preliminary Urine,Voided Assessment and Plan (1) Status post open reduction and internal fixation (ORIF) of fracture Current Visit: Yes Status: Acute Code(s): Z98.890 - OTHER SPECIFIED POSTPROCEDURAL STATES; Z87.81 - PERSONAL HISTORY OF (HEALED) TRAUMATIC FRACTURE SNOMED Code(s): 822525704 (2) Periprosthetic fracture of knee Current Visit: Yes Status: Acute Priority: Medium Code(s): M97.9XXA - PERIPROSTH FRACTURE AROUND UNSP INTERNAL PROSTH JOINT, INIT SNOMED Code(s): 147684201 (3) Status post total left knee replacement Current Visit: No Status: Acute Priority: Medium Code(s): Z96.652 - PRESENCE OF LEFT ARTIFICIAL KNEE JOINT SNOMED Code(s): 5447360629449 (4) Acute blood loss anemia Current Visit: Yes Status: Acute Code(s): D62 - ACUTE POSTHEMORRHAGIC ANEMIA SNOMED Code(s): 824490921 Plan: The clinical findings are discussed with the patient. She is to maintain nonweightbearing to the left lower extremity. It is recommended that she go to inpatient rehab. The patient would like to see how she is doing, Sunday and apr whether she is going home versus rehab. We will continue with physical therapy. I will discuss her postoperative anemia with internal medicine.
--- NOTE | 2022-02-25 11:34 | FL ---
Fluoroscopy HISTORY: Open reduction internal fixation 51 seconds fluoroscopy time supplied to the referring clinician. 5 intraoperative C-arm images docum ent the procedure. See dictated report from orthopedic surgery.
--- NOTE | 2022-02-25 16:51 | P.PN ---
Subjective This is a pleasant 82 years old female with past medical history of Coronary Artery Disease status post CABG in 2007 , Hyperlipidemia, Hypertension, Osteoarthritis , migraines, GOUT, urinary incontinences/p Back Surgery, Bladder Surgery, patient states that she was working and the floor was wet and she did not know so she slipped and fell on her left knee. She denies headache,. She denies syncope or dizziness. She denies chest pain or dyspnea or coughing. No abdominal pain or vomiting or diarrhea. No urgency or change in urinary frequency. No fever. denies smoking, alcohol or illicit drugs. She has history of depression after her about 1.5 years ago, she was started on Paxil and suitable about one month ago and she thinks it's help in her and she wants to continue with the same medication. No other recent medication change Vitas looks stable, blood pressure 111/71. Patient is afebrile. Patient has unremarkable CBC, INR, BMP. CT of the head and cervical spine: No acute intracranial process. No cervical spine fracture Chest x-ray: No acute process. Stable cardiomegaly Pelvic x-ray: No acute fracture or dislocation Left knee x-ray: Acute comminuted mildly displaced distal femur fracture with postsurgical changes from total left knee arthroplasty Lower extremity CT without contrast, acute comminuted distal fracture of the femur. In the emergency room this seemed IV fluids 02/25/2022 Patient looks awake and alert and comfortable however she looks little lethargic and weak. This is expected as postop day #1. She status post open reduction and internal fixation of her distal femur fracture on the left side. Today is postoperative day #1. Her pain at the surgery site is controlled. Neurologic she denies any other complaints, no headache or dyspnea or chest pain. Hemoglobin came down 12 down to 7.5. However vitals are stable and she is less tachycardic. Postop anemia is expected. Patient remains on IV fluids 130 mL/h, we Aborted This Afternoon down to 75 ML/H before Vitals Remain Stable Patient Also on Ceftriaxone for UTI, Urine Culture Is Pending. The 12th 355 and Temperature Replaced Orally with 500 g Daily. Also She Is on Aspirin Twice a Day Chavez catheter in place. No suprapubic tenderness Objective - Vital Signs Vital signs: Vital Signs Temp 98.4 F 02/25/22 07:00 Pulse 89 02/25/22 07:00 Resp 17 02/25/22 07:00 BP 113/69 02/25/22 07:00 Pulse Ox 96 02/25/22 07:00 FiO2 Intake & Output 02/24/22 02/25/22 02/25/22 18:59 06:59 18:59 Intake Total 850 200 120 Output Total 1250 475 Balance -400 -275 120 Weight 71.214 kg Intake: IV 850 200 Oral 120 Output: Urine 1250 400 Estimated Blood Loss 75 Other: Voiding Method Indwelling Catheter Indwelling Catheter - Exam GENERAL: The patient is alert and oriented x3, not in any acute distress. Well developed, well nourished. HEENT: Pupils are round and equally reacting to light. EOMI. No scleral icterus. No conjunctival pallor. Normocephalic, atraumatic. No pharyngeal erythema. No thyromegaly. CARDIOVASCULAR: S1 and S2 present. No murmurs, rubs, or gallops. PULMONARY: Chest is clear to auscultation, no wheezing or crackles. ABDOMEN: Soft, nontender, nondistended, normoactive bowel sounds. No palpable organomegaly. MUSCULOSKELETAL: No joint swelling or deformity. -EXTREMITIES: No cyanosis, clubbing, or pedal edema. left knee is in a brace with dressing on her surgical wound, self exams deferred to surgery team NEUROLOGICAL: Gross neurological examination did not reveal any focal deficits. SKIN: No rashes. no petechiae. - Labs CBC & Chem 7: 02/25/22 05:37 02/25/22 05:37 Labs: Abnormal Lab Results - Last 24 Hours (Table) 02/24/22 02/25/22 02/25/22 Range/Units 17:53 05:37 05:37 RBC 2.48 L (4.10-5.20) X 10*6/uL Hgb 7.5 L (12.0-15.0) g/dL Hct 23.9 L (37.2-46.3) % MCHC 31.4 L (32.0-37.0) g/dL Plt Count 111 L (140-440) X 10*3/uL Monocytes # 1.05 H (0.20-1.00) X 10*3/uL Chloride 112 H (96-109) mmol/L Anion Gap 7.60 L (10.00-18.00) mmol/L Calcium 7.5 L (8.7-10.3) mg/dL Urine Appearance Cloudy H (Clear) Urine Protein Trace H (Negative) Ur Leukocyte Esterase Large H (Negative) Urine RBC 7 H (0-5) /hpf Urine WBC 151 H (0-5) /hpf Urine WBC Clumps Occasional H (None) /hpf Calcium Oxalate Crystal Rare H (None) /hpf Amorphous Sediment Rare H (None) /hpf Urine Bacteria Few H (None) /hpf Urine Mucus Many H (None) /hpf Microbiology - Last 24 Hours (Table) 02/24/22 17:53 Urine Culture - Preliminary Urine,Voided Assessment and Plan Assessment: Fall without losing consciousness Acute comminuted mildly displaced distal femur fracture secondary to above, status post ORIF of the left knee on 02/24 Acute urinary tract infection Borderline vitamin B12 History of osteoarthritis with History of left knee replacement surgery and total knee arthroplasty History of coronary artery disease status post CABG Hypertension Hyperlipidemia History of migraine History of gout History of urinary incontinence History of back surgery Plan: This is a pleasant 82 years old female presents with fall and knee fracture Continue with pain management Orthopedic team consult Continue with ceftriaxone and follow-up urine culture Check and monitor hemoglobin Continue with gentle hydration Labs and medication were reviewed.. Continue same treatment. Continue with symptomatic treatment. Resume home medication. Monitor lytes and vitals. DVT and GI prophylaxis. Further recommendations as per clinical course of the patient DVT prophylaxis: deferred to surgery team GI Prophylaxis: Pepcid PT/OT: Pending thank you for consulting us, who will follow up with you
[2022-02-25] MEDS: HYDROcodone/APAP 5-325MG 1 EACH TAB PO PRN (19:19)
[2022-02-25] MEDS: SENNOSIDES-DOCUSATE SODIUM 1 EACH TAB PO SCH (21:31)
[2022-02-25] MEDS: ATORVASTATIN 40 MG TAB PO SCH (21:31)
[2022-02-25] MEDS: PARoxetine 10 MG TAB PO SCH (21:32)
[2022-02-25] MEDS: QUEtiapine 50 MG TAB PO SCH (21:33)
[2022-02-26] MEDS: HYDROcodone/APAP 5-325MG 1 EACH TAB PO PRN ×3 (01:42→20:22)
[2022-02-26] MEDS: SODIUM CHLORIDE 0.9% 1,000 ML IV SCH ×2 (04:05→12:51)
[2022-02-26 04:24] LABS: Basophils % (A) 0 %; Eosinophils # (A) 0.1 k/uL (0-0.7); Eosinophils % (A) 1 %; HCT 20.8 % (34.0-46.0); Lymphocytes % (A) 17 %; MCH 31.4 pg (25.0-35.0); MCHC 33.8 g/dL (31.0-37.0); MCV 92.9 fL (80.0-100.0); Mean Platelet Volume 8.8; Monocytes # (A) 0.6 k/uL (0-1.0); Monocytes % (A) 10 %; Neutrophils # (A) 4.2 k/uL (1.3-7.7); Neutrophils % (A) 70 %; Platelet Count 101 k/uL (150-450); RBC 2.24 m/uL (3.80-5.40); RDW 13.4 % (11.5-15.5)
[2022-02-26] MEDS: CYANOCOBALAMIN 500 MCG TAB PO SCH (09:15)
[2022-02-26] MEDS: MULTIVITAMINS, THERA 1 EACH TAB PO SCH (09:15)
[2022-02-26] MEDS: ASPIRIN 81 MG PO SCH ×2 (09:15→20:23)
--- NOTE | 2022-02-26 10:50 | P.PN ---
Subjective Progress Note Date: 02/26/22 Principal diagnosis: Periprosthetic fracture left distal femur. Status post ORIF left distal femur. Patient is an 82-year-old female seen at bedside this am. She was admitted throu gh the ED after suffering a fall at home resulting in a left periprosthetic distal femur fracture. She is status post left total knee arthroplasty approximately 2 years ago. She has pain at the left knee as expected. She denies new numbness or tingling. She denies calf pain. She has no fever, ch ills, chest pain or shortness of breath. ED history: Patient states that this current approximately 1-2 hours prior to arrival she stepped on wet floor when she slipped and her legs slid under a light on her left knee. Patient's history of knee replacement on the left. Denies any loss of consciousness. She states the pain is to her lower thigh and knee area. Denies any numbness and paresthesias to the left leg patient is brought in by EMS. Denies any neck regulation medications. 02/25/2022: The patient is postoperative day #1 status post ORIF left distal femur. She has no new complaints or concerns today. Vital signs are stable.Hemoglobin has dropped to 7.5 from 12.8 on admission. She denies lightheadedness or dizziness. 02/26/2022: The patient is postoperative day #2 status post ORIF of the left distal femur periprosthetic fracture. She has no new complaints or concerns tod ay. Vital signs are stable. Hemoglobin is now 7.0. She states that she feels tired and weak today. She is a 2 person assist with activity. Objective - Vital Signs Vital signs: Vital Signs Temp 98.6 F 02/26/22 07:45 Pulse 89 02/26/22 07:45 Resp 16 02/26/22 07:45 BP 128/68 02/26/22 07:45 Pulse Ox 95 02/26/22 01:36 FiO2 Intake & Output 02/25/22 02/26/22 02/26/22 18:59 06:59 18:59 Intake Total 220 Output Total 500 Balance 220 -500 Intake: Intake, IV Titration 100 Amount ceFAZolin 2 gm In Sodium 50 Chloride 0.9% 50 ml @ 100 mls/hr IVPB Q8HR [facility] Rx# :[id number] cefTRIAXone 1 gm In 50 Sodium Chloride 0.9% 50 ml @ 100 mls/hr IVPB Q24HR [facility] Rx#:[id number] Oral 120 Output: Urine 500 Other: Voiding Method Indwelling Catheter Indwelling Catheter - Exam This is a pleasant 82-year-old female in no acute distress. She is alert and oriented 3. She is sitting up in a chair. She does appear quite pale today. Exam of the left lower extremity reveals knee immobilizer in place. She has full foot and ankle motion without difficulty or pain. Neurovascular status to the lower extremity is intact. Pedal pulse is +2/4. - Labs CBC & Chem 7: 02/26/22 03:25 02/25/22 05:37 Labs: Abnormal Lab Results - Last 24 Hours (Table) 02/26/22 Range/Units 03:25 RBC 2.24 L (3.80-5.40) m/uL Hgb 7.0 L D (11.4-16.0) gm/dL Hct 20.8 L (34.0-46.0) % Plt Count 101 L (150-450) k/uL Microbiology - Last 24 Hours (Table) 02/24/22 17:53 Urine Culture - Final Urine,Voided Aerococcus urinae Assessment and Plan (1) Status post open reduction and internal fixation (ORIF) of fracture Current Visit: Yes Status: Acute Code(s): Z98.890 - OTHER SPECIFIED POSTPROCEDURAL STATES; Z87.81 - PERSONAL HISTORY OF (HEALED) TRAUMATIC FRACTURE SNOMED Code(s): 771106970 (2) Periprosthetic fracture of knee Current Visit: Yes Status: Acute Priority: Medium Code(s): M97.9XXA - PERIPROSTH FRACTURE AROUND UNSP INTERNAL PROSTH JOINT, INIT SNOMED Code(s): 372996307 (3) Status post total left knee replacement Current Visit: No Status: Acute Priority: Medium Code(s): Z96.652 - PRESENCE OF LEFT ARTIFICIAL KNEE JOINT SNOMED Code(s): 9652093055530 (4) Acute blood loss anemia Current Visit: Yes Status: Acute Code(s): D62 - ACUTE POSTHEMORRHAGIC ANEMIA SNOMED Code(s): 235139272 Plan: The clinical findings are discussed with the patient. She is to maintain nonweightbearing to the left lower extremity. It is recommended that she go to inpatient rehab. The patient would like to see how she is doing, Sunday and decide whether she is going home versus rehab. We will continue with physical therapy. I will discuss her postoperative anemia with internal medicine.
--- NOTE | 2022-02-26 10:50 | P.PN ---
Subjective Progress Note Date: 02/26/22 Principal diagnosis: Periprosthetic fracture left distal femur. Status post ORIF left distal femur. Patient is an 82-year-old female seen at bedside this am. She was admitted throu gh the ED after suffering a fall at home resulting in a left periprosthetic distal femur fracture. She is status post left total knee arthroplasty approximately 2 years ago. She has pain at the left knee as expected. She denies new numbness or tingling. She denies calf pain. She has no fever, ch ills, chest pain or shortness of breath. ED history: Patient states that this current approximately 1-2 hours prior to arrival she stepped on wet floor when she slipped and her legs slid under a light on her left knee. Patient's history of knee replacement on the left. Denies any loss of consciousness. She states the pain is to her lower thigh and knee area. Denies any numbness and paresthesias to the left leg patient is brought in by EMS. Denies any neck regulation medications. 02/25/2022: The patient is postoperative day #1 status post ORIF left distal femur. She has no new complaints or concerns today. Vital signs are stable.Hemoglobin has dropped to 7.5 from 12.8 on admission. She denies lightheadedness or dizziness. 02/26/2022: The patient is postoperative day #2 status post ORIF of the left distal femur periprosthetic fracture. She has no new complaints or concerns tod ay. Vital signs are stable. Hemoglobin is now 7.0. She states that she feels tired and weak today. She is a 2 person assist with activity. Objective - Vital Signs Vital signs: Vital Signs Temp 98.6 F 02/26/22 07:45 Pulse 89 02/26/22 07:45 Resp 16 02/26/22 07:45 BP 128/68 02/26/22 07:45 Pulse Ox 95 02/26/22 01:36 FiO2 Intake & Output 02/25/22 02/26/22 02/26/22 18:59 06:59 18:59 Intake Total 220 Output Total 500 Balance 220 -500 Intake: Intake, IV Titration 100 Amount ceFAZolin 2 gm In Sodium 50 Chloride 0.9% 50 ml @ 100 mls/hr IVPB Q8HR [facility] Rx# :[id number] cefTRIAXone 1 gm In 50 Sodium Chloride 0.9% 50 ml @ 100 mls/hr IVPB Q24HR [facility] Rx#:[id number] Oral 120 Output: Urine 500 Other: Voiding Method Indwelling Catheter Indwelling Catheter - Exam This is a pleasant 82-year-old female in no acute distress. She is alert and oriented 3. She is sitting up in a chair. She does appear quite pale today. Exam of the left lower extremity reveals knee immobilizer in place. She has full foot and ankle motion without difficulty or pain. Neurovascular status to the lower extremity is intact. Pedal pulse is +2/4. - Labs CBC & Chem 7: 02/26/22 03:25 02/25/22 05:37 Labs: Abnormal Lab Results - Last 24 Hours (Table) 02/26/22 Range/Units 03:25 RBC 2.24 L (3.80-5.40) m/uL Hgb 7.0 L D (11.4-16.0) gm/dL Hct 20.8 L (34.0-46.0) % Plt Count 101 L (150-450) k/uL Microbiology - Last 24 Hours (Table) 02/24/22 17:53 Urine Culture - Final Urine,Voided Aerococcus urinae Assessment and Plan (1) Status post open reduction and internal fixation (ORIF) of fracture Current Visit: Yes Status: Acute Code(s): Z98.890 - OTHER SPECIFIED POSTPROCEDURAL STATES; Z87.81 - PERSONAL HISTORY OF (HEALED) TRAUMATIC FRACTURE SNOMED Code(s): 119893191 (2) Periprosthetic fracture of knee Current Visit: Yes Status: Acute Priority: Medium Code(s): M97.9XXA - PERIPROSTH FRACTURE AROUND UNSP INTERNAL PROSTH JOINT, INIT SNOMED Code(s): 901396413 (3) Status post total left knee replacement Current Visit: No Status: Acute Priority: Medium Code(s): Z96.652 - PRESENCE OF LEFT ARTIFICIAL KNEE JOINT SNOMED Code(s): 5182937362142 (4) Acute blood loss anemia Current Visit: Yes Status: Acute Code(s): D62 - ACUTE POSTHEMORRHAGIC ANEMIA SNOMED Code(s): 017943874 Plan: The clinical findings are discussed with the patient. She is to maintain nonweightbearing to the left lower extremity. It is recommended that she go to inpatient rehab. The patient would like to see how she is doing, Sunday and decide whether she is going home versus rehab. We will continue with physical therapy. I will discuss her postoperative anemia with internal medicine.
[2022-02-26] MEDS: FERROUS SULFATE 325 MG TAB PO SCH ×2 (12:51→14:55)
[2022-02-26] MEDS: HYDROcodone/APAP 10-325MG 1 EACH TAB PO PRN (14:53)
--- NOTE | 2022-02-26 17:36 | P.PN ---
Subjective This is a pleasant 82 years old female with past medical history of Coronary Artery Disease status post CABG in 2007 , Hyperlipidemia, Hypertension, Osteoarthritis , migraines, GOUT, urinary incontinences/p Back Surgery, Bladder Surgery, patient states that she was working and the floor was wet and she did not know so she slipped and fell on her left knee. She denies headache,. She denies syncope or dizziness. She denies chest pain or dyspnea or coughing. No abdominal pain or vomiting or diarrhea. No urgency or change in urinary frequency. No fever. denies smoking, alcohol or illicit drugs. She has history of depression after her about 1.5 years ago, she was started on Paxil and suitable about one month ago and she thinks it's help in her and she wants to continue with the same medication. No other recent medication change Vitas looks stable, blood pressure 111/71. Patient is afebrile. Patient has unremarkable CBC, INR, BMP. CT of the head and cervical spine: No acute intracranial process. No cervical spine fracture Chest x-ray: No acute process. Stable cardiomegaly Pelvic x-ray: No acute fracture or dislocation Left knee x-ray: Acute comminuted mildly displaced distal femur fracture with postsurgical changes from total left knee arthroplasty Lower extremity CT without contrast, acute comminuted distal fracture of the femur. In the emergency room this seemed IV fluids 02/25/2022 Patient looks awake and alert and comfortable however she looks little lethargic and weak. This is expected as postop day #1. She status post open reduction and internal fixation of her distal femur fracture on the left side. Today is postoperative day #1. Her pain at the surgery site is controlled. Neurologic she denies any other complaints, no headache or dyspnea or chest pain. Hemoglobin came down 12 down to 7.5. However vitals are stable and she is less tachycardic. Postop anemia is expected. Patient remains on IV fluids 130 mL/h, we Aborted This Afternoon down to 75 ML/H before Vitals Remain Stable Patient Also on Ceftriaxone for UTI, Urine Culture Is Pending. The 12th 355 and Temperature Replaced Orally with 500 g Daily. Also She Is on Aspirin Twice a Day Chavez catheter in place. No suprapubic tenderness 02/26/2022 Patient looks tired today, she is fully awake and oriented and appropriate, she follows commands. She denies headache, weakness or numbness. No dizziness. Her pain was controlled at the surgical site but just continue from right foot pain, no evidence of trauma open wound. We will order a right foot x-ray hemoglobin today 7.5 down to 7.5 but Also Says Some Evidence of Hematoma Delusion. However Patient Is Still at Risk of Bleeding from Surgery and Postoperatively. Patient Was Provided with Vitamin B12 and Iron Pills Ferrous Sulfate Twice Daily. Transfuse If Hemoglobin Less Than 7 and Keep Close Monitoring of Hemoglobin Continue with ceftriaxone and patient can finish with oral antibiotic for short course upon discharge. Urine culture growing enterococcus Objective - Vital Signs Vital signs: Vital Signs Temp 99.1 F 02/26/22 14:00 Pulse 97 02/26/22 14:00 Resp 17 02/26/22 14:00 BP 95/63 02/26/22 14:00 Pulse Ox 92 L 02/26/22 14:00 FiO2 Intake & Output 02/25/22 02/26/22 02/26/22 18:59 06:59 18:59 Intake Total 220 Output Total 500 Balance 220 -500 Intake: Intake, IV Titration 100 Amount ceFAZolin 2 gm In Sodium 50 Chloride 0.9% 50 ml @ 100 mls/hr IVPB Q8HR JJ Rx# :[id number] cefTRIAXone 1 gm In 50 Sodium Chloride 0.9% 50 ml @ 100 mls/hr IVPB Q24HR JJ Rx#:[id number] Oral 120 Output: Urine 500 Other: Voiding Method Indwelling Catheter Indwelling Catheter Indwelling Catheter - Exam GENERAL: The patient is alert and oriented x3, not in any acute distress. Well developed, well nourished. HEENT: Pupils are round and equally reacting to light. EOMI. No scleral icterus. No conjunctival pallor. Normocephalic, atraumatic. No pharyngeal erythema. No thyromegaly. CARDIOVASCULAR: S1 and S2 present. No murmurs, rubs, or gallops. PULMONARY: Chest is clear to auscultation, no wheezing or crackles. ABDOMEN: Soft, nontender, nondistended, normoactive bowel sounds. No palpable organomegaly. MUSCULOSKELETAL: No joint swelling or deformity. -EXTREMITIES: No cyanosis, clubbing, or pedal edema. left knee is in a brace with dressing on her surgical wound, self exams deferred to surgery team NEUROLOGICAL: Gross neurological examination did not reveal any focal deficits. SKIN: No rashes. no petechiae. - Labs CBC & Chem 7: 02/26/22 03:25 02/25/22 05:37 Labs: Abnormal Lab Results - Last 24 Hours (Table) 02/26/22 Range/Units 03:25 RBC 2.24 L (3.80-5.40) m/uL Hgb 7.0 L D (11.4-16.0) gm/dL Hct 20.8 L (34.0-46.0) % Plt Count 101 L (150-450) k/uL Microbiology - Last 24 Hours (Table) 02/24/22 17:53 Urine Culture - Final Urine,Voided Aerococcus urinae Assessment and Plan Assessment: Fall without losing consciousness Acute comminuted mildly displaced distal femur fracture secondary to above, status post ORIF of the left knee on 02/24 Acute urinary tract infection Borderline vitamin B12 generalized weakness and deconditioning History of osteoarthritis with History of left knee replacement surgery and total knee arthroplasty History of coronary artery disease status post CABG Hypertension Hyperlipidemia History of migraine History of gout History of urinary incontinence History of back surgery Plan: This is a pleasant 82 years old female presents with fall and knee fracture Continue with pain management Orthopedic team consult Continue with ceftriaxone and can finish oral antibiotics and discharged Check and monitor hemoglobin. Transfuse hemoglobin less than 7 Continue with iron and B12 replacement therapy Continue with gentle hydration Labs and medication were reviewed.. Continue same treatment. Continue with symptomatic treatment. Resume home medication. Monitor lytes and vitals. DVT and GI prophylaxis. Further recommendations as per clinical course of the patient DVT prophylaxis: deferred to surgery team GI Prophylaxis: Pepcid PT/OT: Pending. Patient may benefit from ECF upon discharge thank you for consulting us, who will follow up with you
[2022-02-26 18:46] LABS: HCT 22.5 % (34.0-46.0); HGB 7.3 gm/dL (11.4-16.0); MCHC 32.2 g/dL (31.0-37.0); MCV 93.3 fL (80.0-100.0); Mean Platelet Volume 9.4; Platelet Count 136 k/uL (150-450); RBC 2.42 m/uL (3.80-5.40); RDW 13.6 % (11.5-15.5); WBC 7.5 k/uL (3.8-10.6)
[2022-02-26] MEDS: ATORVASTATIN 40 MG TAB PO SCH (20:23)
[2022-02-26] MEDS: QUEtiapine 50 MG TAB PO SCH (20:23)
[2022-02-26] MEDS: PARoxetine 10 MG TAB PO SCH (20:23)
[2022-02-26] MEDS: SENNOSIDES-DOCUSATE SODIUM 1 EACH TAB PO SCH (20:23)
--- NOTE | 2022-02-26 22:14 | XR ---
EXAMINATION TYPE: XR foot limited RT DATE OF EXAM: 02/26/2022 COMPARISON: None HISTORY: Pain TECHNIQUE: 2 views FINDINGS: There is multiple hammertoe deformity. There is plantar calcaneal spurring. Metatarsals are intact. There is soft tissue swelling of the forefoot. There is vascular calcification. IMPRESSION: Soft tissue swelling. No fracture. Multiple hammertoe deformity.
[2022-02-27] MEDS: HYDROcodone/APAP 5-325MG 1 EACH TAB PO PRN ×2 (01:32→07:49)
[2022-02-27] MEDS: SODIUM CHLORIDE 0.9% 1,000 ML IV SCH ×2 (07:05→17:47)
[2022-02-27] MEDS: FERROUS SULFATE 325 MG TAB PO SCH ×2 (07:50→17:47)
[2022-02-27] MEDS: ASPIRIN 81 MG PO SCH ×2 (07:50→22:26)
[2022-02-27] MEDS: MULTIVITAMINS, THERA 1 EACH TAB PO SCH (07:50)
[2022-02-27] MEDS: CYANOCOBALAMIN 500 MCG TAB PO SCH (07:50)
--- NOTE | 2022-02-27 09:05 | P.PN ---
Subjective Progress Note Date: 02/27/22 Principal diagnosis: S/P ORIF left distal femur fracture Patient is seen at bedside this morning. She is postop day #3 from ORIF of left distal femur fracture. She has pain at the surgical site as expected but denies any new complaints. She denies numbness, tingling or calf pain. Review of systems is negative for fever, chills, chest pain, shortness of breath or other Objective - Vital Signs Vital signs: Vital Signs Temp 98.1 F 02/27/22 07:46 Pulse 75 02/27/22 07:46 Resp 17 02/27/22 07:46 BP 123/78 02/27/22 07:46 Pulse Ox 96 02/27/22 07:46 FiO2 Intake & Output 02/26/22 02/27/22 02/27/22 18:59 06:59 18:59 Output Total 1000 1000 Balance -1000 -1000 Output: Urine 1000 1000 Uretheral (Chavez) 1000 Other: Voiding Method Indwelling Catheter Indwelling Catheter - Exam Inspection reveals a benign surgical wound. There is no active bleeding or drainage. Neurovascular status is intact throughout the lower extremity with motor and sensation fully intact. Calf is soft and nontender. 2+ dorsalis pedis pulse and less than 2 second cap refill is present. - Constitutional General appearance: Present: no acute distress - Labs CBC & Chem 7: 02/26/22 18:17 02/25/22 05:37 Labs: Abnormal Lab Results - Last 24 Hours (Table) 02/26/22 Range/Units 18:17 RBC 2.42 L (3.80-5.40) m/uL Hgb 7.3 L (11.4-16.0) gm/dL Hct 22.5 L (34.0-46.0) % Plt Count 136 L (150-450) k/uL Assessment and Plan (1) Periprosthetic fracture of knee Narrative/Plan: She will continue with routine postop orthopedic protocol including pain management, wound care, PT, DVT prophylaxis and medical management. She is pending placement at [facility]. She may transfer from orthopedic standpoint when ok with IM and accepted. Current Visit: Yes Status: Acute Priority: Medium Code(s): M97.9XXA - PERIPROSTH FRACTURE AROUND UNSP INTERNAL PROSTH JOINT, INIT SNOMED Code(s): 738422705 Time with Patient: Less than 30
[2022-02-27 11:39] LABS: Basophils # (A) 0.03 X 10*3/uL (0.00-0.10); Basophils % (A) 0.4 %; Eosinophils # (A) 0.31 X 10*3/uL (0.04-0.35); Eosinophils % (A) 4.4 %; HCT 22.3 % (37.2-46.3); Immature Grans, Automated 0.4 %; Lymphocytes # (A) 1.51 X 10*3/uL (0.90-5.00); Lymphocytes % (A) 21.6 %; MCH 29.9 pg (27.0-32.0); MCHC 31.4 g/dL (32.0-37.0); MCV 95.3 fL (80.0-97.0); Mean Platelet Volume 11.2 fL (9.5-12.2); Monocytes # (A) 0.91 X 10*3/uL (0.20-1.00); NRBC Per 100 WBC 0 /100 WBCS (0.0-0.0); Neutrophils # (A) 4.19 X 10*3/uL (1.80-7.70); Neutrophils % (A) 60.2 %; Platelet Count 161 X 10*3/uL (140-440); RBC 2.34 X 10*6/uL (4.10-5.20); RDW 14.1 % (11.5-14.5); WBC 6.98 X 10*3/uL (4.50-10.00)
[2022-02-27] MEDS: HYDROcodone/APAP 10-325MG 1 EACH TAB PO PRN ×2 (13:44→19:28)
--- NOTE | 2022-02-27 20:28 | P.PN ---
Subjective This is a pleasant 82 years old female with past medical history of Coronary Artery Disease status post CABG in 2007 , Hyperlipidemia, Hypertension, Osteoarthritis , migraines, GOUT, urinary incontinences/p Back Surgery, Bladder Surgery, patient states that she was working and the floor was wet and she did not know so she slipped and fell on her left knee. She denies headache,. She denies syncope or dizziness. She denies chest pain or dyspnea or coughing. No abdominal pain or vomiting or diarrhea. No urgency or change in urinary frequency. No fever. denies smoking, alcohol or illicit drugs. She has history of depression after her about 1.5 years ago, she was started on Paxil and suitable about one month ago and she thinks it's help in her and she wants to continue with the same medication. No other recent medication change Vitas looks stable, blood pressure 111/71. Patient is afebrile. Patient has unremarkable CBC, INR, BMP. CT of the head and cervical spine: No acute intracranial process. No cervical spine fracture Chest x-ray: No acute process. Stable cardiomegaly Pelvic x-ray: No acute fracture or dislocation Left knee x-ray: Acute comminuted mildly displaced distal femur fracture with postsurgical changes from total left knee arthroplasty Lower extremity CT without contrast, acute comminuted distal fracture of the femur. In the emergency room this seemed IV fluids 02/25/2022 Patient looks awake and alert and comfortable however she looks little lethargic and weak. This is expected as postop day #1. She status post open reduction and internal fixation of her distal femur fracture on the left side. Today is postoperative day #1. Her pain at the surgery site is controlled. Neurologic she denies any other complaints, no headache or dyspnea or chest pain. Hemoglobin came down 12 down to 7.5. However vitals are stable and she is less tachycardic. Postop anemia is expected. Patient remains on IV fluids 130 mL/h, we Aborted This Afternoon down to 75 ML/H before Vitals Remain Stable Patient Also on Ceftriaxone for UTI, Urine Culture Is Pending. The 12th 355 and Temperature Replaced Orally with 500 g Daily. Also She Is on Aspirin Twice a Day Chavez catheter in place. No suprapubic tenderness 02/26/2022 Patient looks tired today, she is fully awake and oriented and appropriate, she follows commands. She denies headache, weakness or numbness. No dizziness. Her pain was controlled at the surgical site but just continue from right foot pain, no evidence of trauma open wound. We will order a right foot x-ray hemoglobin today 7.5 down to 7.5 but Also Says Some Evidence of Hematoma Delusion. However Patient Is Still at Risk of Bleeding from Surgery and Postoperatively. Patient Was Provided with Vitamin B12 and Iron Pills Ferrous Sulfate Twice Daily. Transfuse If Hemoglobin Less Than 7 and Keep Close Monitoring of Hemoglobin Continue with ceftriaxone and patient can finish with oral antibiotic for short course upon discharge. Urine culture growing enterococcus 02/27/2022 patient clinically improving slowly and gradually She had low-grade temperature yesterday She was complaining from UTI with positive urine culture for enterococcus which is sensitive however patient was also complaining of from right foot pain with very mild erythema but less suspicious for overt cellulitis therefore we going to keep ceftriaxone and increased the dose to twice a day although it is suspected secondary to the trauma with x-rays negative for fracture most likely blunt trauma which is improving gradually. Hemoglobin 7.0 Patient will benefit from ECF upon discharge Possible discharge in 24-48 hours if she keeps improving Objective - Vital Signs Vital signs: Vital Signs Temp 97.6 F 02/27/22 14:00 Pulse 79 02/27/22 14:00 Resp 15 02/27/22 14:00 BP 133/68 02/27/22 14:00 Pulse Ox 96 02/27/22 14:00 FiO2 Intake & Output 02/27/22 02/27/22 02/28/22 06:59 18:59 06:59 Intake Total 480 Output Total 1000 200 Balance -1000 280 Intake: Oral 480 Output: Urine 1000 200 Uretheral (Chavez) 1000 Other: Voiding Method Indwelling Catheter Indwelling Catheter - Exam GENERAL: The patient is alert and oriented x3, not in any acute distress. Well developed, well nourished. HEENT: Pupils are round and equally reacting to light. EOMI. No scleral icterus. No conjunctival pallor. Normocephalic, atraumatic. No pharyngeal erythema. No thyromegaly. CARDIOVASCULAR: S1 and S2 present. No murmurs, rubs, or gallops. PULMONARY: Chest is clear to auscultation, no wheezing or crackles. ABDOMEN: Soft, nontender, nondistended, normoactive bowel sounds. No palpable organomegaly. MUSCULOSKELETAL: No joint swelling or deformity. -EXTREMITIES: No cyanosis, clubbing, or pedal edema. left knee is in a brace with dressing on her surgical wound, self exams deferred to surgery team -Right foot tenderness with mild swelling. Very minimal limited area of erythema on the dorsum of the foot most likely from blunt trauma less likely cellulitis NEUROLOGICAL: Gross neurological examination did not reveal any focal deficits. SKIN: No rashes. no petechiae. - Labs CBC & Chem 7: 02/27/22 07:59 02/25/22 05:37 Labs: Abnormal Lab Results - Last 24 Hours (Table) 02/27/22 Range/Units 07:59 RBC 2.34 L (4.10-5.20) X 10*6/uL Hgb 7.0 L (12.0-15.0) g/dL Hct 22.3 L (37.2-46.3) % MCHC 31.4 L (32.0-37.0) g/dL Assessment and Plan Assessment: Fall without losing consciousness Acute comminuted mildly displaced distal femur fracture secondary to above, status post ORIF of the left knee on 02/24 Acute urinary tract infection Borderline vitamin B12 generalized weakness and deconditioning Right foot pain with x-ray negative, suspicion for cellulitis is low most likely secondary to blunt trauma from fall. Improving History of osteoarthritis with History of left knee replacement surgery and total knee arthroplasty History of coronary artery disease status post CABG Hypertension Hyperlipidemia History of migraine History of gout History of urinary incontinence History of back surgery Plan: This is a pleasant 82 years old female presents with fall and knee fracture Continue with pain management Orthopedic team consult who cleared the patient for discharge Continue with ceftriaxone and can finish oral antibiotics and discharged Check and monitor hemoglobin. Transfuse hemoglobin less than 7 Continue with iron and B12 replacement therapy Continue with gentle hydration Labs and medication were reviewed.. Continue same treatment. Continue with symptomatic treatment. Resume home medication. Monitor lytes and vitals. DVT and GI prophylaxis. Further recommendations as per clinical course of the patient DVT prophylaxis: deferred to surgery team GI Prophylaxis: Pepcid PT/OT: Pending. Patient may benefit from ECF upon discharge thank you for consulting us, who will follow up with you
[2022-02-27] MEDS: QUEtiapine 50 MG TAB PO SCH (22:26)
[2022-02-27] MEDS: PARoxetine 10 MG TAB PO SCH (22:26)
[2022-02-27] MEDS: ATORVASTATIN 40 MG TAB PO SCH (22:26)
[2022-02-27] MEDS: SENNOSIDES-DOCUSATE SODIUM 1 EACH TAB PO SCH (22:26)
[2022-02-28] MEDS: HYDROcodone/APAP 10-325MG 1 EACH TAB PO PRN (02:24)
[2022-02-28] MEDS: SODIUM CHLORIDE 0.9% 1,000 ML IV SCH (05:53)
[2022-02-28] MEDS ORDERED: FUROSEMIDE 10 MG/ML 2 ML VIAL IV ONE (08:52)
[2022-02-28] MEDS: HYDROcodone/APAP 5-325MG 1 EACH TAB PO PRN (09:36)
[2022-02-28] MEDS: CYANOCOBALAMIN 500 MCG TAB PO SCH (09:39)
[2022-02-28] MEDS: ASPIRIN 81 MG PO SCH (09:40)
[2022-02-28] MEDS: FERROUS SULFATE 325 MG TAB PO SCH (09:40)
--- NOTE | 2022-02-28 11:30 | P.DS ---
Providers Date of admission: 02/23/22 14:46 Expected date of discharge: 02/28/22 Attending physician: Jelani Liriano Consults: 02/23/22 14:46 Consult Physician Routine Consulting Provider: Radha Neal Consult Reason/Comments: IM consult Do you want consulting provider notified?: Yes Primary care physician: Stated None - Discharge Diagnosis(es) (1) Periprosthetic fracture of knee Patient was admitted to the OR on 02/24/22 to undergo ORIF of left periprosthetic distal femur fracture. She had suffered a fall at home on 02/23/22 resulting in the fracture. She desired to proceed with elective surgery after given informed consent. She underwent the above procedure which she tolerated well without complication. Postoperative hospital course has remained without complication. On day of discharge she is afebrile, vital signs stable, labs within acceptable ranges, tolerating by mouth meds and diet, voiding without difficulty, positive flatus, denies abdominal pain or calf pain, pain is controlled on oral pain medication and has no new complaints. Wound is benign, neurovascular status is intact, calf is soft and nontender, abdomen soft and nontender. Review of systems is negative for numbness, tingling, fever, chills, chest pain, shortness of breath, nausea, vomiting, dizziness, headaches, slurred speech or other. Current Visit: Yes Status: Acute Priority: Medium Procedures: ORIF left periprosthetic distal femur fracture Patient Condition at Discharge: Stable Plan - Discharge Summary New Discharge Prescriptions: New Aspirin [Adult Low Dose Aspirin EC] 81 mg PO BID #60 tab Docusate [Colace] 100 mg PO BID #60 capsule HYDROcodone/APAP 7.5-325MG [[place] 7.5-325] 1 - 2 each PO Q6HR PRN #42 tab PRN Reason: Pain No Action Vit A/Vit C/Vit E/Zinc/Copper [ICAPS SOFTGEL] 2 cap PO DAILY Atorvastatin [Lipitor] 40 mg PO HS atenoloL [Tenormin] 25 mg PO DAILY Meclizine [Antivert] 25 mg PO TID PRN PRN Reason: Nausea And Vomiting QUEtiapine [SEROquel] 50 mg PO HS PARoxetine HCL [Paxil Cr] 37.5 mg PO HS Mirabegron [Myrbetriq] 50 mg PO HS Ergocalciferol (Vitamin D2) [Drisdol (50,000 Iu)] 1,250 mcg PO FR Calcium Carbonate [Calcium] 600 mg PO BID lisinopriL [Zestril] 5 mg PO DAILY Vit A/Vit C/Vit E/Zinc/Copper [ICAPS SOFTGEL] 1 cap PO HS Discharge Medication List Atorvastatin [Lipitor] 40 mg PO HS 12/02/15 [History] Vit A/Vit C/Vit E/Zinc/Copper [ICAPS SOFTGEL] 2 cap PO DAILY 12/02/15 [History] atenoloL [Tenormin] 25 mg PO DAILY 12/02/15 [History] Meclizine [Antivert] 25 mg PO TID PRN 11/16/18 [History] Calcium Carbonate [Calcium] 600 mg PO BID 02/23/22 [History] Ergocalciferol (Vitamin D2) [Drisdol (50,000 Iu)] 1,250 mcg PO FR 02/23/22 [History] Mirabegron [Myrbetriq] 50 mg PO HS 02/23/22 [History] PARoxetine HCL [Paxil Cr] 37.5 mg PO HS 02/23/22 [History] QUEtiapine [SEROquel] 50 mg PO HS 02/23/22 [History] Vit A/Vit C/Vit E/Zinc/Copper [ICAPS SOFTGEL] 1 cap PO HS 02/23/22 [History] lisinopriL [Zestril] 5 mg PO DAILY 02/23/22 [History] Aspirin [Adult Low Dose Aspirin EC] 81 mg PO BID #60 tab 02/27/22 [Rx] Docusate [Colace] 100 mg PO BID #60 capsule 02/27/22 [Rx] HYDROcodone/APAP 7.5-325MG [[place] 7.5-325] 1 - 2 each PO Q6HR PRN #42 tab 02/27/22 [Rx] Follow up Appointment(s)/Referral(s): None,Stated [Primary Care Provider] - 1-2 days Jelani Liriano MD [STAFF PHYSICIAN] - 03/07/22 1:20 pm Patient Instructions/Handouts: ORIF (DC) Activity/Diet/Wound Care/Special Instructions: Non weightbearing left lower extremity remove trey at POD #10 F/U in office Discharge Disposition: TRANSFER TO SNF/ECF
[2022-02-28 14:53] VITALS: BP 110/68; PULSE 89; RESP 17; TEMP 97.6
--- NOTE | 2022-02-28 23:53 | P.PN ---
Subjective This is a pleasant 82 years old female with past medical history of Coronary Artery Disease status post CABG in 2007 , Hyperlipidemia, Hypertension, Osteoarthritis , migraines, GOUT, urinary incontinences/p Back Surgery, Bladder Surgery, patient states that she was working and the floor was wet and she did not know so she slipped and fell on her left knee. She denies headache,. She denies syncope or dizziness. She denies chest pain or dyspnea or coughing. No abdominal pain or vomiting or diarrhea. No urgency or change in urinary frequency. No fever. denies smoking, alcohol or illicit drugs. She has history of depression after her about 1.5 years ago, she was started on Paxil and suitable about one month ago and she thinks it's help in her and she wants to continue with the same medication. No other recent medication change Vitas looks stable, blood pressure 111/71. Patient is afebrile. Patient has unremarkable CBC, INR, BMP. CT of the head and cervical spine: No acute intracranial process. No cervical spine fracture Chest x-ray: No acute process. Stable cardiomegaly Pelvic x-ray: No acute fracture or dislocation Left knee x-ray: Acute comminuted mildly displaced distal femur fracture with postsurgical changes from total left knee arthroplasty Lower extremity CT without contrast, acute comminuted distal fracture of the femur. In the emergency room this seemed IV fluids 02/25/2022 Patient looks awake and alert and comfortable however she looks little lethargic and weak. This is expected as postop day #1. She status post open reduction and internal fixation of her distal femur fracture on the left side. Today is postoperative day #1. Her pain at the surgery site is controlled. Neurologic she denies any other complaints, no headache or dyspnea or chest pain. Hemoglobin came down 12 down to 7.5. However vitals are stable and she is less tachycardic. Postop anemia is expected. Patient remains on IV fluids 130 mL/h, we Aborted This Afternoon down to 75 ML/H before Vitals Remain Stable Patient Also on Ceftriaxone for UTI, Urine Culture Is Pending. The 12th 355 and Temperature Replaced Orally with 500 g Daily. Also She Is on Aspirin Twice a Day Chavez catheter in place. No suprapubic tenderness 02/26/2022 Patient looks tired today, she is fully awake and oriented and appropriate, she follows commands. She denies headache, weakness or numbness. No dizziness. Her pain was controlled at the surgical site but just continue from right foot pain, no evidence of trauma open wound. We will order a right foot x-ray hemoglobin today 7.5 down to 7.5 but Also Says Some Evidence of Hematoma Delusion. However Patient Is Still at Risk of Bleeding from Surgery and Postoperatively. Patient Was Provided with Vitamin B12 and Iron Pills Ferrous Sulfate Twice Daily. Transfuse If Hemoglobin Less Than 7 and Keep Close Monitoring of Hemoglobin Continue with ceftriaxone and patient can finish with oral antibiotic for short course upon discharge. Urine culture growing enterococcus 02/27/2022 patient clinically improving slowly and gradually She had low-grade temperature yesterday She was complaining from UTI with positive urine culture for enterococcus which is sensitive however patient was also complaining of from right foot pain with very mild erythema but less suspicious for overt cellulitis therefore we going to keep ceftriaxone and increased the dose to twice a day although it is suspected secondary to the trauma with x-rays negative for fracture most likely blunt trauma which is improving gradually. Hemoglobin 7.0 Patient will benefit from ECF upon discharge Possible discharge in 24-48 hours if she keeps improving 02/28/2022 Patient today looks more awake and comfortable and energetic. Patient states that her right foot is less painful. Patient still needs assistance with mobility. She denies any other symptoms, no headache or dizziness or neurological sy mptoms. No chest pain or dyspnea. No abdominal pain or vomiting or diarrhea. No fever. She is hemodynamically stable. No labs from today. Hemoglobin 7.0 since yesterday. Patient denies urinary symptoms, no suprapubic tenderness Her right foot still mildly tender but much improved compared to yesterday. The mild erythema on the middle of the foot was completely resolved today as well. X-ray of the foot showed no fracture. Patient was cleared for discharge by Orthopedic team to go to rehab today, patient agrees to go to rehab and she told me. Patient will benefit from short course of Ceftin for her UTI. Also recommended to lower her home dose of Seroquel 50 down to 25 mg to decrease the chances of forming. Patient informed and she agrees with the plan Objective - Vital Signs Vital signs: Vital Signs Temp 97.6 F 02/28/22 14:00 Pulse 89 02/28/22 14:00 Resp 17 02/28/22 14:00 BP 110/68 10/18/22 14:00 Pulse Ox 98 02/28/22 14:00 FiO2 Intake & Output 02/28/22 02/28/22 03/01/22 06:59 18:59 06:59 Intake Total 1040 50 Output Total 700 800 Balance 340 -750 Intake: Intake, IV Titration 800 50 Amount Sodium Chloride 0.9% 1, 600 000 ml @ 75 mls/hr IV . [id number] JJ Rx#:[id number] cefTRIAXone 1 gm In 200 50 Sodium Chloride 0.9% 50 ml @ 100 mls/hr IVPB BID JJ Rx#:[id number] Oral 240 Output: Urine 700 800 Other: Voiding Method External Catheter External Catheter # Bowel Movements 1 - Exam GENERAL: The patient is alert and oriented x3, not in any acute distress. Well developed, well nourished. HEENT: Pupils are round and equally reacting to light. EOMI. No scleral icterus. No conjunctival pallor. Normocephalic, atraumatic. No pharyngeal erythema. No thyromegaly. CARDIOVASCULAR: S1 and S2 present. No murmurs, rubs, or gallops. PULMONARY: Chest is clear to auscultation, no wheezing or crackles. ABDOMEN: Soft, nontender, nondistended, normoactive bowel sounds. No palpable organomegaly. MUSCULOSKELETAL: No joint swelling or deformity. -EXTREMITIES: No cyanosis, clubbing, or pedal edema. left knee is in a brace with dressing on her surgical wound, self exams deferred to surgery team -Right foot tenderness with mild swelling. Very minimal limited area of erythema on the dorsum of the foot most likely from blunt trauma less likely cellulitis NEUROLOGICAL: Gross neurological examination did not reveal any focal deficits. SKIN: No rashes. no petechiae. - Labs CBC & Chem 7: 02/27/22 07:59 02/25/22 05:37 Assessment and Plan Assessment: Fall without losing consciousness Acute comminuted mildly displaced distal femur fracture secondary to above, status post ORIF of the left knee on 02/24 Acute urinary tract infection Borderline vitamin B12 generalized weakness and deconditioning Right foot pain with x-ray negative, suspicion for cellulitis is low most likely secondary to blunt trauma from fall. Improving History of osteoarthritis with History of left knee replacement surgery and total knee arthroplasty History of coronary artery disease status post CABG Hypertension Hyperlipidemia History of migraine History of gout History of urinary incontinence History of back surgery Plan: This is a pleasant 82 years old female presents with fall and knee fracture Patient will benefit from a short course of oral antibiotic with Ceftin 5 days for UTI Symptomatic treatment for it. Orthopedic team on the case for left knee fracture and postoperative care Patient cleared for discharge by orthopedic team Continue with iron and B12 replacement therapy Patient is medically stable Labs and medication were reviewed.. Continue same treatment. Continue with symptomatic treatment. Resume home medication. Monitor lytes and vitals. DVT and GI prophylaxis. Further recommendations as per clinical course of the patient DVT prophylaxis: deferred to surgery team GI Prophylaxis: Pepcid PT/OT: Pending. Patient may benefit from ECF upon discharge thank you for consulting us
== END 2022-02-28 16:47 | DRG 481 ==
LOC: EC 12:34 → 4SSUR 14:46
PROVIDERS: ADMIT Orthopaedic Surgery Sports Medicine; ATTEND Orthopaedic Surgery Sports Medicine
PROC: 0QSC04Z Reposition Left Lower Femur with Internal Fixation Device, Open Approach (ICD-10-PCS; principal; 2022-02-24 09:45)
DX: S72.402A Unspecified fracture of lower end of left femur, initial encounter for closed fracture (principal); D62 Acute posthemorrhagic anemia; M97.12XA Periprosthetic fracture around internal prosthetic left knee joint, initial encounter; N39.0 Urinary tract infection, site not specified; W01.0XXA Fall on same level from slipping, tripping and stumbling without subsequent striking against object, initial encounter; Y92.000 Kitchen of unspecified non-institutional (private) residence as the place of occurrence of the external cause; I25.10 Atherosclerotic heart disease of native coronary artery without angina pectoris; F32.A Depression, unspecified; E78.5 Hyperlipidemia, unspecified; S99.821A Other specified injuries of right foot, initial encounter; I11.9 Hypertensive heart disease without heart failure; M19.90 Unspecified osteoarthritis, unspecified site; M10.9 Gout, unspecified; R32 Unspecified urinary incontinence; Z20.822 Contact with and (suspected) exposure to COVID-19; Z96.653 Presence of artificial knee joint, bilateral; G43.909 Migraine, unspecified, not intractable, without status migrainosus; B95.2 Enterococcus as the cause of diseases classified elsewhere; Z79.899 Other long term (current) drug therapy; Z95.1 Presence of aortocoronary bypass graft; Z79.82 Long term (current) use of aspirin; Z63.4 Disappearance and death of family member
CPT/HCPCS: 36415; 70450; 71045; 72125; 72170; 80048; 81001; 82607; 82746; 83036; 83735; 84443; 85025; 85027; 85610; 85730; 87086; 87635; 93005; 96361; 96374; 96376; 99285

== ENCOUNTER → 2022-10-16 | Outpatient (CLI) | payer MEDICARE, OTHER ==
--- NOTE | 2022-10-16 13:20 | CT ---
EXAMINATION TYPE: CT chest wo con DATE OF EXAM: 10/16/2022 COMPARISON: CT thorax December 12, 2018 HISTORY: Enlarged lymph nodes. Right sided posterior rib pain. CT DLP: 237 mGycm. Automated Exposure Control for Dose Reduction was Utilized. TECHNIQUE: CT scan of the thorax is performed without IV contrast. FINDINGS: LUNGS: The lungs remain grossly clear, there is no concerning greater than 5 mm parenchymal mass or n odule identified. There is no pleural effusion or pneumothorax seen. The tracheobronchial tree is patent. MEDIASTINUM: Lack of IV contrast is noted to limit evaluation for mediastinal and especially hilar ad enopathy. There are no definitive new Greater than 1 cm mediastinal lymph nodes. No cardiomegaly or pericardial effusion is seen. Post-CA BG changes with sternal wires and mediastinal clips are redemonstrated OTHER: Cholecystectomy clips are redemonstrated. Vertebroplasty at T9 level is now present where ther e is mild height loss redemonstrated. IMPRESSION: No suspicious new mass or adenopathy. No acute pulmonary process. No significant change f rom prior CT.
== END | disposition home or self-care (01) ==
LOC: RADCTMAIN 13:00
PROVIDERS: ATTEND Family Medicine
DX: R59.0 Localized enlarged lymph nodes (principal)
CPT/HCPCS: 71250

== ENCOUNTER → 2023-04-20 | Outpatient (CLI) | payer MEDICARE, OTHER ==
--- NOTE | 2023-04-20 15:08 | CT ---
EXAMINATION TYPE: CT lumbar spine wo con CT DLP: 615.9 mGycm, Automated exposure control for dose reduction was used. DATE OF EXAM: 04/20/2023 9:41 AM COMPARISON: . 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 Soft tissue and bone windows in coronal and sagittal planes were obtained and reviewed. 3-D ref ormats of the bones were created on a separate workstation and submitted for review. Contrast used: mL of , none. Oral contrast used: none. FINDINGS: Bones: There are 5 lumbar-type vertebral bodies. Osseous mineralization appears decreased. No evidenc e of destructive lesion. Small sclerotic density in the L2 vertebral body, could relate to bone islan d. Some straightening of the normal lordosis with no significant abnormal AP alignment. There is mode rate apex right scoliosis centered at L2-L3, and slight lateral shift of L3 towards the right over L4 . No definite acute fractures. Postoperative changes with cerclage type wires seen posteriorly involv ing the L3-L5 segments. Mild degenerative change of the visualized SI joints. Suspect remote healed r ight L2 and L3 transverse process fractures. There is moderate to severe multilevel degenerative disc disease with disc osteophyte complexes and f acet arthrosis, causing narrowing of the canal and foramina discussed below. Levels: T12-L1: Mild spinal canal and neural foraminal stenoses. L1-L2: Mild/moderate canal and bilateral neural foraminal stenosis. L2-L3: Mild to moderate canal and right neural foraminal stenosis. Moderate to severe left neural for aminal stenosis. L3-L4: Moderate to severe spinal canal stenosis and bilateral neural foraminal stenosis. L4-L5: Moderate canal stenosis. Moderate to severe right and moderate left neural foraminal stenosis. L5-S1: Mild/moderate canal and bilateral neural foraminal stenoses. Other: Cholecystectomy clips. An 11 x 8.5 mm calculus in the midportion left kidney. Moderate calcifi cation of the aorta and branches. No AAA. Aorta and iliac arteries are tortuous. Postoperative change s with surgical clips anteriorly at L5-S1 level. Partially seen collapsed tubular density within the pelvis right of midline, appears outside of the bowel; this could be a drain of some sort depending o n clinical correlation. IMPRESSION: 1. No evidence of acute fracture or traumatic malalignment of the lumbar spine. 2. Moderate to severe multilevel spondylosis, with findings level by level above. 3. Other chronic and likely incidental findings, as described above.
== END | disposition home or self-care (01) ==
LOC: RADCTMAIN 09:14
PROVIDERS: ATTEND Orthopaedic Surgery Orthopaedic Surgery of the Spine
DX: M47.816 Spondylosis without myelopathy or radiculopathy, lumbar region (principal); M41.86 Other forms of scoliosis, lumbar region; S39.012D Strain of muscle, fascia and tendon of lower back, subsequent encounter; M48.062 Spinal stenosis, lumbar region with neurogenic claudication
CPT/HCPCS: 72131

== ENCOUNTER → 2023-07-06 | Outpatient (CLI) | payer MEDICARE, OTHER ==
[2023-07-06 15:13] LABS: Basophils # (A) 0.09 X 10*3/uL (0.00-0.10); Eosinophils % (A) 2.3 %; HCT 43.3 % (37.2-46.3); Lymphocytes # (A) 2.56 X 10*3/uL (0.90-5.00); Lymphocytes % (A) 29.4 %; MCH 30.5 pg (27.0-32.0); MCHC 32.3 g/dL (32.0-37.0); MCV 94.3 FL (80.0-97.0); Mean Platelet Volume 10.6 FL (9.5-12.2); Monocytes # (A) 0.89 X 10*3/uL (0.20-1.00); Monocytes % (A) 10.2 %; NRBC Per 100 WBC 0 X 10*3/uL (0.00-0.01); Neutrophils # (A) 4.93 X 10*3/uL (1.80-7.70); Neutrophils % (A) 56.6 %; Platelet Count 269 X 10*3/uL (140-440); RBC 4.59 X 10*6/uL (4.10-5.20); RDW 14.3 % (11.5-14.5); WBC 8.71 X 10*3/uL (4.50-10.00)
[2023-07-06 15:44] LABS: ALT 10 U/L (8-44); AST 24 U/L (13-35); Albumin 4.1 g/dL (3.8-4.9); Albumin/Globulin Ratio 1.95 Ratio (1.60-3.17); Alkaline Phosphatase 94 U/L (41-126); BUN/Creat Ratio 18.29 Ratio (12.00-20.00); Blood Urea Nitrogen 12.8 mg/dL (9.0-27.0); Calcium 9.6 mg/dL (8.7-10.3); Carbon Dioxide 22.4 mmol/L (21.6-31.8); Chloride 109 mmol/L (96-109); Chol/HDL Ratio 1.84 Ratio; Globulin 2.1 g/dL (1.6-3.3); Glucose 94 mg/dL (70-110); Potassium 4.1 mmol/L (3.5-5.5); Sodium 144 mmol/L (135-145); Total Bilirubin 0.6 mg/dL (0.3-1.2); Total Protein 6.2 g/dL (6.2-8.2); VLDL Calculation 12.98 mg/dL (5.00-40.00)
== END | disposition home or self-care (01) ==
LOC: LABWHC1 08:02
PROVIDERS: ATTEND Internal Medicine Clinical Cardiac Electrophysiology
DX: I10 Essential (primary) hypertension (principal); I25.10 Atherosclerotic heart disease of native coronary artery without angina pectoris; Z95.1 Presence of aortocoronary bypass graft; F32.A Depression, unspecified
CPT/HCPCS: 36415; 80053; 80061; 84443; 85025

== ENCOUNTER 2023-08-30 20:35 | Emergency (ER) | payer MEDICARE, OTHER ==
[2023-08-30 21:13] VITALS: PULSE 85; TEMP 98.3
--- NOTE | 2023-08-30 21:53 | ED ---
General Adult HPI - General Chief complaint: Fall Stated complaint: Fall Time Seen by Provider: 08/30/23 20:37 Source: patient, EMS, RN notes reviewed Mode of arrival: EMS Limitations: physical limitation - History of Present Illness Initial comments: 83-year-old female presents to the emergency department via EMS for evaluation of fall. Patient states that prior to arrival she fell landing on her right hip. She notes that she is unsure why she fell but thinks that she lost her footing. She is reporting pain in her right hip. She does note that she scraped her right arm but is not having any significant pain to this area. She did not hit her head or lose consciousness. She is not on blood thinners. She received 100 mics of fentanyl on the ambulance. - Related Data Home Medications Medication Instructions Recorded Confirmed Atorvastatin [Lipitor] 40 mg PO HS 12/02/15 02/23/22 Vit A/Vit C/Vit E/Zinc/Copper 2 cap PO DAILY 12/02/15 02/23/22 [ICAPS SOFTGEL] atenoloL [Tenormin] 25 mg PO DAILY 12/02/15 02/23/22 Meclizine [Antivert] 25 mg PO TID PRN 11/16/18 02/23/22 Calcium Carbonate [Calcium] 600 mg PO BID 02/23/22 02/23/22 Ergocalciferol (Vitamin D2) 1,250 mcg PO FR 02/23/22 02/23/22 [Drisdol (50,000 Iu)] Mirabegron [Myrbetriq] 50 mg PO HS 02/23/22 02/23/22 PARoxetine HCL [Paxil Cr] 37.5 mg PO HS 02/23/22 02/23/22 Vit A/Vit C/Vit E/Zinc/Copper 1 cap PO HS 02/23/22 02/23/22 [ICAPS SOFTGEL] Previous Rx's Medication Instructions Recorded Aspirin [Adult Low Dose Aspirin EC] 81 mg PO BID #60 tab 02/27/22 Docusate [Colace] 100 mg PO BID #60 capsule 02/27/22 HYDROcodone/APAP 7.5-325MG [[place] 1 - 2 each PO Q6HR PRN #42 tab 02/27/22 7.5-325] Acetaminophen Tab [Tylenol] 650 mg PO Q6HR PRN tab 02/28/22 Cyanocobalamin [Vitamin B-12] 500 mcg PO DAILY tab 02/28/22 Ferrous Sulfate [Iron (65 MG 325 mg PO BID-W/MEALS 21 Days tab 02/28/22 Elemental)] Multivitamins, Thera [Multivitamin 1 each PO DAILY@1200 tab 02/28/22 (formulary)] QUEtiapine [SEROquel] 25 mg PO HS #2 02/28/22 cefUROXime axetiL [Cefuroxime] 500 mg PO BID 5 Days #10 tab 02/28/22 Lidocaine 5% Patch [Lidoderm 5% 1 patch TOPICAL DAILY #30 patch 08/30/23 Patch] Allergies Allergy/AdvReac Type Severity Reaction Status Date / Time No Known Allergies Allergy Verified 08/30/23 20:56 Review of Systems ROS Statement: Those systems with pertinent positive or pertinent negative responses have been documented in the HPI. ROS Other: All systems not noted in ROS Statement are negative. Past Medical History Past Medical History: Coronary Artery Disease (CAD), Hyperlipidemia, Hypertension, Osteoarthritis (OA) Additional Past Medical History / Comment(s): migraines, GOUT, urinary incontinence History of Any Multi-Drug Resistant Organisms: None Reported Past Surgical History: Appendectomy, Back Surgery, Bladder Surgery, Cholecystectomy, Coronary Bypass/CABG, Heart Catheterization, Hysterectomy, Joint Replacement, Orthopedic Surgery, Tonsillectomy Additional Past Surgical History / Comment(s): CABG [id number], rt knee surgery, surgery ingris thumbs, ingris cataracts, 8-25-16 TOTAL RT KNEE REPLACMENT Past Anesthesia/Blood Transfusion Reactions: Motion Sickness, Postoperative Nausea & Vomiting (PONV) Additional Past Anesthesia/Blood Transfusion Reaction / Comment(s): HAS INNER EAR DISTURBANCE CAUSES HER DIZZINESS AT TIMES. Past Psychological History: Depression Smoking Status: Never smoker Past Alcohol Use History: None Reported Past Drug Use History: None Reported - Past Family History Mother Family Medical History: No Reported History Father History Unknown: Yes Brother(s) Family Medical History: Cancer General Exam Limitations: no limitations General appearance: alert, in no apparent distress Head exam: Present: atraumatic, normocephalic, normal inspection Eye exam: Present: normal appearance, PERRL, EOMI. Absent: scleral icterus, conjunctival injection, periorbital swelling ENT exam: Present: normal exam, mucous membranes moist Respiratory exam: Present: normal lung sounds bilaterally. Absent: respiratory distress, wheezes, rales, rhonchi, stridor Cardiovascular Exam: Present: regular rate, normal rhythm, normal heart sounds. Absent: systolic murmur, diastolic murmur, rubs, gallop, clicks Extremities exam: Present: normal inspection, normal capillary refill, other (DP PT pulses 2+). Absent: full ROM, tenderness, pedal edema, joint swelling, calf tenderness Back exam: Present: normal inspection Neurological exam: Present: alert, oriented X3, CN II-XII intact Psychiatric exam: Present: normal affect, normal mood Skin exam: Present: warm, dry, intact, normal color. Absent: rash Course Vital Signs 08/30/23 08/30/23 08/30/23 20:43 22:36 23:35 Temperature 98.3 F Pulse Rate 85 79 85 Respiratory 18 18 12 Rate Blood Pressure 146/96 150/85 O2 Sat by Pulse 94 L 94 L 93 L Oximetry Medical Decision Making - Medical Decision Making Was pt. sent in by a medical professional or institution (Dr. PA, CLINICAL DATA RESEARCH, urgent care, hospital, or [place] [facility] care facility...) When possible be specific @ -No Did you speak to anyone other than the patient for history (EMS, parent, family, police, friend...)? What history was obtained from this source @ -EMS Did you review nursing and triage notes (agree or disagree)? Why? @ -I reviewed and agree with nursing and triage notes Were old charts reviewed (outside hosp., previous admission, EMS record, old EKG, old radiological studies, urgent care reports/EKG's, [place] health care facility records)? Report findings @ -No old charts were reviewed Differential Diagnosis (chest pain, altered mental status, abdominal pain women, abdominal pain men, vaginal bleeding, weakness, fever, dyspnea, syncope, headache, dizziness, GI bleed, back pain, seizure, CVA, palpatations, mental health, musculoskeletal)? @ -Fall, hip fracture, head injury, this list is not all inclusive EKG interpreted by me (3pts min.). @ -None X-rays interpreted by me (1pt min.). @ -None done CT interpreted by me (1pt min.). @ -CT brain and C-spine was obtained which shows no acute intracranial hemorrhage, no acute C-spine fracture or traumatic malalignment U/S interpreted by me (1pt. min.). @ -None done What testing was considered but not performed or refused? (CT, X-rays, U/S, labs)? Why? @ -None What meds were considered but not given or refused? Why? @ -None Did you discuss the management of the patient with other professionals (professionals i.e. Dr., PA, CLINICAL DATA RESEARCH, lab, RT, psych nurse, long term care social worker, general ledger bookkeeper, teacher, loan service officer, rn case mgr)? Give summary @ -No Was smoking cessation discussed for >3mins.? @ -No Was critical care preformed (if so, how long)? @ -No Were there social determinants of health that impacted care today? How? (Ho melessness, low income, unemployed, alcoholism, drug addiction, transportation, low edu. Level, literacy, decrease access to med. care, detention, rehab)? @ -No Was there de-escalation of care discussed even if they declined (Discuss DNR or withdrawal of care, Hospice)? DNR status @ -No What co-morbidities impacted this encounter? (DM, HTN, Smoking, COPD, CAD, Cancer, CVA, ARF, Chemo, Hep., AIDS, mental health diagnosis, sleep apnea, morbid obesity)? @ -None Was patient admitted / discharged? Hospital course, mention meds given and route, prescriptions, significant lab abnormalities, going to OR and other pertinent info. @ -Discharge. Patient presented to the emergency department for evaluation of right hip pain following a fall. She was placed in a c-collar by EMS. She was given 100 mics of fentanyl in the ambulance. Because of this unable to clear C- spine clinically. Patient underwent CT brain and C-spine which shows no acute intracranial hemorrhage no acute C-spine fracture or traumatic malalignment. X- ray of the right femur obtained which shows no acute fracture. Patient uses a walker at home. Patient was able to get up and ambulate with the walker without assistance. Patient was advised on findings and will be discharged home. Patient understanding and agreeable with plan. Patient stable at time of discharge. Case discussed with Dr. Rawls Undiagnosed new problem with uncertain prognosis? @ -No Drug Therapy requiring intensive monitoring for toxicity (Heparin, Nitro, Insulin, Cardizem)? @ -No Were any procedures done? @ -No Diagnosis/symptom? @ -Fall, right hip pain Acute, or Chronic, or Acute on Chronic? @ -Acute Uncomplicated (without systemic symptoms) or Complicated (systemic symptoms)? @ -Uncomplicated Side effects of treatment? @ -No Exacerbation, Progression, or Severe Exacerbation? @ -No Poses a threat to life or bodily function? How? (Chest pain, [place], [place], pneumonia, PE, COPD, DKA, ARF, appy, cholecystitis, CVA, Diverticulitis, Homicidal, Suicidal, threat to staff... and all critical care pts) @ -No Disposition Clinical Impression: Fall, Hip pain, right Disposition: HOME SELF-CARE Condition: Stable Instructions (If sedation given, give patient instructions): Fall Prevention for Older Adults (ED) Additional Instructions: Please follow up with Dr. Liriano. Return to the emergency department for new or worsening symptoms. Prescriptions: Lidocaine 5% Patch [Lidoderm 5% Patch] 1 patch TOPICAL DAILY #30 patch Is patient prescribed a controlled substance at d/c from ED?: No Referrals: None,Stated [Primary Care Provider] - 1-2 days
--- NOTE | 2023-08-30 22:21 | XR ---
EXAM: XR Chest, 1 View CLINICAL HISTORY: ITS.REASON XR Reason: fall TECHNIQUE: Frontal view of the chest. COMPARISON: No relevant prior studies available. FINDINGS: Lungs: Unremarkable. No consolidation. Pleural space: Unremarkable. No pneumothorax. Heart: Cardiomegaly. Mediastinum: Unremarkable. Normal mediastinal contour. Bones/joints: Sternotomy wires. No acute fracture. IMPRESSION: No acute findings in the chest.
--- NOTE | 2023-08-30 22:21 | XR ---
EXAM: XR Right Femur, 2 Views CLINICAL HISTORY: ITS.REASON XR Reason: fall TECHNIQUE: Frontal and lateral views of the right femur. COMPARISON: No relevant prior studies available. FINDINGS: Bones/joints: RIGHT knee arthroplasty. Patellar resurfacing. No acute fracture. No dislocation. Soft tissues: Unremarkable. Vasculature: Vascular calcifications. IMPRESSION: No acute findings in the right femur.
--- NOTE | 2023-08-30 22:29 | CT ---
EXAM: CT Head Without Intravenous Contrast CLINICAL HISTORY: ITS.REASON CT Reason: fall TECHNIQUE: Axial computed tomography images of the head/brain without intravenous contrast. CTDI is 45.2 mGy and DLP is 1044 mGy-cm. This CT exam was performed using one or more of the following dose reduction techniques: automated exposure control, adjustment of the mA and/or kV according to patient size, and/or use of iterative reconstruction technique. COMPARISON: No relevant prior studies available. FINDINGS: No acute intracranial hemorrhage. No midline shift or mass effect. The territorial sow-white matter differentiation is maintained throughout. Age-related cerebral volume loss. Periventricular and subcortical white matter hypoattenuation, consistent with chronic microangiopathy. The visualized orbits appear grossly unremarkable. The calvarium is intact. The visualized paranasal sinuses and mastoid air cells are grossly clear. IMPRESSION: No acute intracranial hemorrhage, midline shift, or mass effect. EXAM: CT Cervical Spine Without Intravenous Contrast CLINICAL HISTORY: ITS.REASON CT Reason: fall TECHNIQUE: Axial computed tomography images of the cervical spine without intravenous contrast. CTDI is 9.4 mGy and DLP is 268.5 mGy-cm. This CT exam was performed using one or more of the following dose reduction techniques: automated exposure control, adjustment of the mA and/or kV according to patient size, and/or use of iterative reconstruction technique. COMPARISON: No relevant prior studies available. FINDINGS: The vertebral body heights are maintained. The craniocervical junction is intact. The atlanto-dens interval is maintained. The dens is intact. There is no spondylolisthesis. Multilevel cervical spondylosis and degenerative disc disease. Straightening of the cervical lordosis. The unenhanced neck soft tissues are grossly unremarkable. The visualized lung apices are grossly clear. IMPRESSION: No acute fracture or subluxation of the cervical spine.
[2023-08-30] MEDS: ACET/COD 300 MG/30 MG STARTER PACK 6 TAB BTL PO STA (23:39)
[2023-08-30 23:50] VITALS: BP 150/85; RESP 12
== END 2023-08-30 23:58 | disposition home or self-care (01) ==
LOC: EC 20:35
DX: M25.551 Pain in right hip (principal); W10.9XXA Fall (on) (from) unspecified stairs and steps, initial encounter; Y93.01 Activity, walking, marching and hiking; Y92.59 Other trade areas as the place of occurrence of the external cause
CPT/HCPCS: 70450; 71045; 72125; 99284

== ENCOUNTER → 2023-09-24 | Outpatient (CLI) | payer MEDICARE, OTHER ==
--- NOTE | 2023-09-24 15:20 | NM ---
EXAMINATION TYPE: NM bone scan whole body DATE OF EXAM: 09/24/2023 COMPARISON: 01/08/2019 CLINICAL INDICATION: Female, 83 years old with history of M54.51 VERTEBROGENIC LOW BACK PAIN; Delayed whole-body scanning was performed following the injection of 24.0 mCi Tc 99m MDP. Images acq uired 3 hours post injection. FINDINGS: Lumbar scoliosis convex to the right. Increased uptake at the L5-S1 level compatible with degenerativ e disc disease. Mild degenerative uptake about the remainder of the spine. No intense uptake to sugge st bony destructive process or fracture of the lumbar spine. There is intense uptake noted to involve the right intertrochanteric region felt to reflect underlying lesion or fracture. Degenerative uptak e of the shoulders and sternoclavicular joints as well as the mid feet bilaterally. IMPRESSION: 1. Probable right sided intertrochanteric fracture. 2. Degenerative changes lumbar spine.
== END | disposition home or self-care (01) ==
LOC: RADNMMAIN 11:07
PROVIDERS: ATTEND Physical Medicine & Rehabilitation
DX: M47.816 Spondylosis without myelopathy or radiculopathy, lumbar region (principal)
CPT/HCPCS: 78306; A9503